=== PATIENT | female | born 1950 | race American Indian/Alaskan Native ===

== ENCOUNTER 2019-03-25 00:50 | Emergency (ER) | payer MEDICARE ==
[2019-03-25] MEDS ORDERED: ONDANSETRON 4 MG/2 ML INJ IV ONE (01:17)
[2019-03-25] MEDS ORDERED: SODIUM CHLORIDE 0.9% 1000 ML 1,000 ML IV ONE ×2 (01:17→03:21)
[2019-03-25] MEDS ORDERED: FAMOTIDINE 20 MG/2 ML INJ IV ONE (01:17)
[2019-03-25] MEDS ORDERED: MORPHINE 2 MG/1 ML INJ IV ONE (01:17)
[2019-03-25] MEDS ORDERED: DICYCLOMINE 20 MG/2 ML INJ IM ONE (01:17)
--- NOTE | 2019-03-25 02:29 | Ultrasound Report ---
ULTRASOUND ABDOMEN, LIMITED (RIGHT UPPER QUADRANT), 03/25/2019 INDICATION: Right upper quadrant pain. COMPARISON: None FINDINGS: Pancreas: Visualized portion shows no significant abnormality. Liver: The liver appears grossly normal in size and echogenicity Gallbladder: The gallbladder demonstrates no evidence of stones, sludge or abnormal wall thickening. Bile ducts: Common Bile Duct is normal in caliber measuring 5 mm. Free fluid: None. Additional Findings: None. IMPRESSION: 1. No sonographic abnormality of the right upper quadrant. Signer Name: Huong Sifuentes MD Signed: 03/25/2019 2:25 AM Workstation Name: [id number]
[2019-03-25 02:50] LABS: Hemoglobin 15.3 gm/dl (10.1-14.3); Red Blood Count 5.78 M/mm3 (3.65-5.03)
[2019-03-25 02:51] LABS: Basophils % (Auto) 0.4 % (0.0-1.8); Hematocrit 46.9 % (30.3-42.9); Lymphocytes % (Auto) 10.3 % (13.4-35.0); Mean Corpuscular HGB Conc 33 % (30-34); Mean Corpuscular Volume 81 fl (79-97); Mean Platelet Volume 11.4 fl (6-12); Monocytes # (Auto) 0.3 K/mm3 (0.0-0.8); Monocytes % (Auto) 2.7 % (0.0-7.3); Platelet Count 214 K/mm3 (140-440); Red Cell Distribution Width 14.1 % (13.2-15.2)
[2019-03-25 03:14] LABS: Alanine Aminotransferase 11 units/L (7-56); BUN/Creatinine Ratio 16; Blood Urea Nitrogen 8 mg/dL (7-17); Calcium 9.2 mg/dL (8.4-10.2)
[2019-03-25 03:15] LABS: Albumin 3.8 g/dL (3.9-5); Hemolysis Index 11
[2019-03-25 03:16] LABS: Bilirubin,Urine Negative (Negative); Color,Urine Yellow (Yellow)
[2019-03-25 03:17] LABS: Blood,Urine Small (Negative); Ictotest,Urine Negative (Negative); Urobilinogen,Urine < 2.0 mg/dL (<2.0)
[2019-03-25 03:18] LABS: Bacteria,Urine 1+ /HPF (Negative); Mucus,Urine Few /HPF
[2019-03-25] MEDS ORDERED: POTASSIUM CHLORIDE 10 MEQ 10 MEQ/100 ML BAG IV ONE (03:21)
[2019-03-25] MEDS ORDERED: POTASSIUM CHLORIDE ER 20 MEQ TAB PO ONE (03:21)
--- NOTE | 2019-03-25 04:34 | Emergency Department Report ---
ED Abdominal Pain HPI - General Chief Complaint: High BP Stated Complaint: HTN,N/V Time Seen by Provider: 03/25/19 01:05 Source: patient, EMS Mode of arrival: Ambulatory Limitations: No Limitations - History of Present Illness Initial Comments: Patient is a 68-year-old Citizen Of [place] female who is presenting with epigastric pain and nausea vomiting. Patient states that for the past 2 days she is not felt well and been nauseous however patient started vomiting tonight. Patient denies diarrhea fever cough, congestion or body aches. Patient is not sure if she ate something that may have been bad. MD Complaint: abdominal pain Location: epigastric Severity scale (0 -10): 7 Quality: cramping, aching Consistency: constant Improves With: nothing Worsens With: eating Associated Symptoms: nausea, vomiting. denies: diarrhea, fever, constipation, dysuria, hematemesis, hematochezia, melena - Related Data Previous Rx's Medication Instructions Recorded Last Taken Type Dicyclomine [Bentyl] 20 mg PO QID #10 tablet 03/25/19 Unknown Rx Famotidine [Pepcid] 40 mg PO QHS #10 tablet 03/25/19 Unknown Rx Ondansetron [Zofran Odt] 4 mg PO Q8HR #10 tab.rapdis 03/25/19 Unknown Rx Allergies Allergy/AdvReac Type Severity Reaction Status Date / Time Sulfa (Sulfonamide Allergy Angioedema Verified 03/25/19 01:04 Antibiotics) ED Review of Systems ROS: Stated complaint: HTN,N/V Other details as noted in HPI Comment: All other systems reviewed and negative ED Past Medical Hx - Past Medical History Previous Medical History?: Yes Hx Hypertension: Yes Hx Heart Attack/AMI: Yes Hx Diabetes: Yes - Surgical History Past Surgical History?: No - Social History Smoking Status: Never Smoker - Medications Home Medications: Home Medications Medication Instructions Recorded Confirmed Last Taken Type Dicyclomine [Bentyl] 20 mg PO QID #10 tablet 03/25/19 Unknown Rx Famotidine [Pepcid] 40 mg PO QHS #10 tablet 03/25/19 Unknown Rx Ondansetron [Zofran Odt] 4 mg PO Q8HR #10 tab.rapdis 03/25/19 Unknown Rx ED Physical Exam - General Limitations: No Limitations General appearance: alert, in distress (secondary to pain) - Head Head exam: Present: atraumatic, normocephalic - Eye Eye exam: Present: normal appearance, PERRL, EOMI - ENT ENT exam: Present: mucous membranes moist - Neck Neck exam: Present: normal inspection - Respiratory Respiratory exam: Present: normal lung sounds bilaterally. Absent: respiratory distress, wheezes, rales, rhonchi - Cardiovascular Cardiovascular Exam: Present: regular rate, normal rhythm, normal heart sounds. Absent: systolic murmur, diastolic murmur, rubs, gallop - GI/Abdominal GI/Abdominal exam: Present: soft, tenderness (epigastric), normal bowel sounds. Absent: distended, guarding, rebound - Extremities Exam Extremities exam: Present: normal inspection - Back Exam Back exam: Present: normal inspection - Neurological Exam Neurological exam: Present: alert, oriented X3 - Psychiatric Psychiatric exam: Present: normal affect, normal mood - Skin Skin exam: Present: warm, dry, intact, normal color. Absent: rash ED Course Vital Signs 03/25/19 03/25/19 03/25/19 01:04 01:14 01:15 Temperature 98.5 F Pulse Rate 106 H 102 H 101 H Respiratory 18 10 L 8 L Rate Blood Pressure 201/100 204/98 Blood Pressure [Left] O2 Sat by Pulse 98 97 97 Oximetry 03/25/19 03/25/19 03/25/19 01:30 01:46 02:00 Temperature Pulse Rate 98 H 96 H 101 H Respiratory 15 8 L 22 Rate Blood Pressure 204/98 203/93 203/93 Blood Pressure [Left] O2 Sat by Pulse 96 93 88 Oximetry 03/25/19 03/25/19 03/25/19 04:07 04:13 04:16 Temperature Pulse Rate 89 Respiratory 18 Rate Blood Pressure 207/136 223/111 Blood Pressure 198/98 [Left] O2 Sat by Pulse 98 Oximetry ED Medical Decision Making - Lab Data Result diagrams: 03/25/19 01:35 03/25/19 01:35 Lab Results 03/25/19 03/25/19 03/25/19 Range/Units 01:35 01:35 Unknown WBC 9.6 (4.5-11.0) K/mm3 RBC 5.78 H (3.65-5.03) M/mm3 Hgb 15.3 H (10.1-14.3) gm/dl Hct 46.9 H (30.3-42.9) % MCV 81 (79-97) fl MCH 26 L (28-32) pg MCHC 33 (30-34) % RDW 14.1 (13.2-15.2) % Plt Count 214 (140-440) K/mm3 Lymph % (Auto) 10.3 L (13.4-35.0) % Lea % (Auto) 2.7 (0.0-7.3) % Eos % (Auto) 0.0 (0.0-4.3) % Baso % (Auto) 0.4 (0.0-1.8) % Lymph # 1.0 L (1.2-5.4) K/mm3 Lea # 0.3 (0.0-0.8) K/mm3 Eos # 0.0 (0.0-0.4) K/mm3 Baso # 0.0 (0.0-0.1) K/mm3 Seg Neutrophils % 86.6 H (40.0-70.0) % Seg Neutrophils # 8.3 H (1.8-7.7) K/mm3 Sodium 138 (137-145) mmol/L Potassium 2.8 L* (3.6-5.0) mmol/L Chloride 93.2 L (98-107) mmol/L Carbon Dioxide 23 (22-30) mmol/L Anion Gap 25 mmol/L BUN 8 (7-17) mg/dL Creatinine 0.5 L (0.7-1.2) mg/dL Estimated GFR > 60 ml/min BUN/Creatinine Ratio 16 % Glucose 327 H (65-100) mg/dL Calcium 9.2 (8.4-10.2) mg/dL Total Bilirubin 0.50 (0.1-1.2) mg/dL AST 16 (5-40) units/L ALT 11 (7-56) units/L Alkaline Phosphatase 160 H (35-129) units/L Total Protein 7.6 (6.3-8.2) g/dL Albumin 3.8 L (3.9-5) g/dL Albumin/Globulin Ratio 1.0 % Lipase 7 L (13-60) units/L Urine Color Yellow (Yellow) Urine Turbidity Slightly cloudy (Clear) Urine pH 6.0 (5.0-7.0) Ur Specific Secretary 1.016 (1.003-1.030) Urine Protein 100 mg/dl (Negative) mg/dL Urine Glucose (UA) >=500 (Negative) mg/dL Urine Ketones 80 (Negative) mg/dL Urine Blood Small A (Negative) Urine Nitrite Negative (Negative) Ur Reducing Substances Negative (Negative) Urine Bilirubin Negative (Negative) Urine Ictotest Negative (Negative) Urine Urobilinogen < 2.0 (<2.0) mg/dL Ur Leukocyte Esterase Moderate (Negative) Urine WBC (Auto) 60.0 H (0.0-6.0) /HPF Urine RBC (Auto) 1.0 (0.0-6.0) /HPF U Epithel Cells (Auto) < 1.0 (0-13.0) /HPF Urine Bacteria (Auto) 1+ (Negative) /HPF Urine Mucus Few /HPF - Radiology Data Radiology results: report reviewed (sounds of the upper abdomen shows no acute process.) - Medical Decision Making She was hydrated given antiemetics and pain medicine her pain did resolve. Patient states she is feeling much improved. Ultrasounds negative for gallstones. The patient's did have a low potassium which was replaced. After the patient was feeling better blood pressure still was elevated and the patient was given a dose of labetalol patient can continue with her morning dose of blood pressure medicines when she gets home. Patient stable for discharge. Critical care attestation.: If time is entered above; I have spent that time in minutes in the direct care of this critically ill patient, excluding procedure time. ED Disposition Clinical Impression: Hypokalemia, Hypertensive urgency Acute gastritis Qualifiers: Gastritis type: unspecified gastritis Gastritis bleeding: without bleeding Qualified Code(s): K29.00 - Acute gastritis without bleeding Disposition: DC-01 TO HOME OR SELFCARE Is pt being admited?: No Does the pt Need Aspirin: No Condition: Stable Instructions: Hypertension (ED), Gastritis (ED) Referrals: VANNA ROSS MD [Primary Care Provider] - 3-5 Days Time of Disposition: 04:38
[2019-03-25 05:10] VITALS: BP 185/94
== END 2019-03-25 05:34 | disposition home or self-care (01) ==
LOC: ED 00:50
DX: E87.6 Hypokalemia (principal); I16.0 Hypertensive urgency; K29.00 Acute gastritis without bleeding; I11.0 Hypertensive heart disease with heart failure; I50.9 Heart failure, unspecified; E11.9 Type 2 diabetes mellitus without complications; Z88.2 Allergy status to sulfonamides; Z79.899 Other long term (current) drug therapy
CPT/HCPCS: 36415; 76705; 80053; 81001; 83690; 85025; 87086; 96365; 96372; 96375; 99284; J0500; J2270; J2405; J3480; J7030

== ENCOUNTER 2019-11-08 20:06 | Emergency (ER) | payer MEDICARE ==
[2019-11-08 21:46] LABS: Hematocrit 43.7 % (30.3-42.9); Hemoglobin 14.4 gm/dl (10.1-14.3); Mean Corpuscular HGB Conc 33 % (30-34); Mean Corpuscular Volume 85 fl (79-97); Red Blood Count 5.17 M/mm3 (3.65-5.03); Red Cell Distribution Width 15.7 % (13.2-15.2)
[2019-11-08 21:52] LABS: Lymphocytes # (Auto) 2.9 K/mm3 (1.2-5.4); Lymphocytes % (Auto) 43.2 % (13.4-35.0); Monocytes # (Auto) 0.9 K/mm3 (0.0-0.8); Platelet Count 192 K/mm3 (140-440)
[2019-11-08 22:01] LABS: Alanine Aminotransferase 23 units/L (7-56); Albumin 4.2 g/dL (3.9-5); Blood Urea Nitrogen 12 mg/dL (7-17); Calcium 9.2 mg/dL (8.4-10.2); Hemolysis Index 112
[2019-11-08 22:24] LABS: BUN/Creatinine Ratio 24
[2019-11-08 23:05] LABS: Bilirubin,Urine NEG (Negative); Blood,Urine MOD (Negative); Color,Urine Yellow (Yellow); Mucus,Urine FEW /HPF; Urobilinogen,Urine < 2.0 mg/dL (<2.0)
[2019-11-09] MEDS ORDERED: FAMOTIDINE 20 MG/2 ML INJ IV ONE (00:29)
[2019-11-09] MEDS ORDERED: SODIUM CHLORIDE 0.9% 1000 ML 1,000 ML IV ONE (00:29)
[2019-11-09] MEDS ORDERED: METOCLOPRAMIDE 10 MG/2 ML INJ IV ONE (00:29)
[2019-11-09] MEDS ORDERED: MORPHINE 4 MG/1 ML INJ IV ONE (00:29)
--- NOTE | 2019-11-09 00:33 | Emergency Department Report ---
<ALON MEDRANO III Jeremías - Last Filed: 11/09/19 05:57> ED Abdominal Pain HPI - General Chief Complaint: Abdominal Pain Stated Complaint: NAUSEA/VOMITING Time Seen by Provider: 11/09/19 00:27 - Related Data Previous Rx's Medication Instructions Recorded Last Taken Type Dicyclomine [Bentyl] 20 mg PO QID #10 tablet 03/25/19 Unknown Rx Famotidine [Pepcid] 40 mg PO QHS #10 tablet 03/25/19 Unknown Rx Ondansetron [Zofran Odt] 4 mg PO Q8HR #10 tab.rapdis 03/25/19 Unknown Rx Ciprofloxacin HCl [Ciprofloxacin 500 mg PO Q12HR 10 Days #20 tab 11/09/19 Unknown Rx TAB] Famotidine [Acid Controller] 20 mg PO BID 30 Days #60 tablet 11/09/19 Unknown Rx Ondansetron [Zofran Odt] 4 mg PO Q8HR PRN #10 tab.rapdis 11/09/19 Unknown Rx Allergies Allergy/AdvReac Type Severity Reaction Status Date / Time Sulfa (Sulfonamide Allergy Angioedema Verified 03/25/19 01:04 Antibiotics) ED Past Medical Hx - Medications Home Medications: Home Medications Medication Instructions Recorded Confirmed Last Taken Type Dicyclomine [Bentyl] 20 mg PO QID #10 tablet 03/25/19 Unknown Rx Famotidine [Pepcid] 40 mg PO QHS #10 tablet 03/25/19 Unknown Rx Ondansetron [Zofran Odt] 4 mg PO Q8HR #10 tab.rapdis 03/25/19 Unknown Rx Ciprofloxacin HCl [Ciprofloxacin 500 mg PO Q12HR 10 Days #20 tab 11/09/19 Unknown Rx TAB] Famotidine [Acid Controller] 20 mg PO BID 30 Days #60 tablet 11/09/19 Unknown Rx Ondansetron [Zofran Odt] 4 mg PO Q8HR PRN #10 tab.rapdis 11/09/19 Unknown Rx ED Course - Reevaluation(s) Reevaluation #1: Patient was signed out to me at 0 2 AM to follow-up on the CT scans from the previous physician. Patient CT scans were negative except for the patient had possible gallbladder thickening. The radiologist recommended an ultrasound and an ultrasound was done and it was negative for acute findings and did not demonstrate any gallbladder thickening. Patient is stable for discharge. Patient has a UTI on UA so the patient will be given antibiotics. I will initiate the previous physicians discharge instructions. 11/09/19 05:57 ED Medical Decision Making - Lab Data Result diagrams: 11/08/19 21:30 11/08/19 21:30 ED Disposition Clinical Impression: Abdominal pain Disposition: DC-01 TO HOME OR SELFCARE Condition: Stable Instructions: Abdominal Pain (ED) Prescriptions: Famotidine [Acid Controller] 20 mg PO BID 30 Days #60 tablet Ciprofloxacin HCl [Ciprofloxacin TAB] 500 mg PO Q12HR 10 Days #20 tab Ondansetron [Zofran Odt] 4 mg PO Q8HR PRN #10 tab.rapdis PRN Reason: Nausea Referrals: BRADEN JENSEN MD [Staff Physician] - 3-5 Days Time of Disposition: 05:59 <SAMIRA GOLDMAN - Last Filed: 11/10/19 21:30> ED Abdominal Pain HPI - General PUI?: No Source: patient, EMS Mode of arrival: Ambulatory Limitations: No Limitations - History of Present Illness Initial Comments: This is a 68-year-old female with history of diabetes mellitus, cardiac disease, hypertension who presents with nausea vomiting today. She has epigastric pain. She denies diarrhea or constipation. No sick contacts. She denies fever. She has "pain all over". She denies cough or shortness of breath Complaint: abdominal pain -: Gradual, This morning Location: epigastric Radiation: none Severity: moderate Quality: cramping, aching Consistency: constant Improves With: nothing Worsens With: nothing Context: other (No known sick contacts no recent antibiotics) Associated Symptoms: nausea, vomiting ED Review of Systems ROS: Stated complaint: NAUSEA/VOMITING Other details as noted in HPI Comment: All other systems reviewed and negative Constitutional: malaise. denies: chills, fever ENT: congestion (Nasal congestion). denies: throat pain Respiratory: denies: cough Cardiovascular: denies: chest pain Gastrointestinal: abdominal pain, nausea, vomiting. denies: diarrhea, constipation ED Past Medical Hx - Past Medical History Previous Medical History?: Yes Hx Hypertension: Yes Hx Heart Attack/AMI: Yes Hx Diabetes: Yes - Surgical History Past Surgical History?: No - Social History Smoking Status: Never Smoker Substance Use Type: None ED Physical Exam - General Limitations: No Limitations General appearance: alert, other (Appears uncomfortable slightly ill) - Head Head exam: Present: atraumatic, normocephalic - Eye Eye exam: Present: normal appearance - ENT ENT exam: Present: mucous membranes moist - Neck Neck exam: Present: normal inspection, full ROM - Respiratory Respiratory exam: Present: normal lung sounds bilaterally. Absent: respiratory distress, wheezes, rales, rhonchi - Cardiovascular Cardiovascular Exam: Present: regular rate, normal rhythm, normal heart sounds. Absent: systolic murmur, diastolic murmur, rubs, gallop - GI/Abdominal GI/Abdominal exam: Present: soft, normal bowel sounds. Absent: distended, tenderness, guarding, rebound - Neurological Exam Neurological exam: Present: alert, oriented X3 - Psychiatric Psychiatric exam: Present: normal affect, normal mood - Skin Skin exam: Present: warm, dry, intact, normal color. Absent: rash ED Course Vital Signs 11/08/19 11/09/19 11/09/19 21:04 00:36 00:48 Temperature 98.1 F Pulse Rate 148 H 96 H Respiratory 18 18 11 L Rate Blood Pressure 133/64 Blood Pressure [Right] O2 Sat by Pulse 96 100 Oximetry 11/09/19 11/09/19 11/09/19 00:51 01:00 01:01 Temperature Pulse Rate 96 H 96 H 96 H Respiratory 14 16 22 Rate Blood Pressure 187/82 Blood Pressure 222/99 [Right] O2 Sat by Pulse 100 94 89 Oximetry 11/09/19 11/09/19 11/09/19 01:03 01:15 01:30 Temperature Pulse Rate 98 H 98 H 98 H Respiratory 22 16 15 Rate Blood Pressure 187/82 175/86 187/82 Blood Pressure [Right] O2 Sat by Pulse 89 94 96 Oximetry 11/09/19 11/09/19 11/09/19 01:53 02:01 02:15 Temperature Pulse Rate 97 H 97 H 100 H Respiratory 14 17 13 Rate Blood Pressure 185/93 181/94 Blood Pressure [Right] O2 Sat by Pulse 99 99 97 Oximetry 11/09/19 11/09/19 11/09/19 02:30 02:37 02:45 Temperature Pulse Rate 99 H 100 H 99 H Respiratory 14 15 12 Rate Blood Pressure 181/94 174/98 Blood Pressure 181/94 [Right] O2 Sat by Pulse 97 97 97 Oximetry 11/09/19 11/09/19 11/09/19 03:00 03:16 03:31 Temperature Pulse Rate 97 H 107 H 100 H Respiratory 12 14 15 Rate Blood Pressure 171/96 174/98 174/98 Blood Pressure [Right] O2 Sat by Pulse 98 100 98 Oximetry 11/09/19 11/09/19 11/09/19 03:45 04:01 04:15 Temperature Pulse Rate 98 H 97 H 98 H Respiratory 14 13 14 Rate Blood Pressure 174/98 174/98 171/96 Blood Pressure [Right] O2 Sat by Pulse 98 98 97 Oximetry 11/09/19 11/09/19 11/09/19 04:31 04:45 05:00 Temperature Pulse Rate 98 H 98 H 97 H Respiratory 13 12 13 Rate Blood Pressure 168/90 161/88 156/92 Blood Pressure [Right] O2 Sat by Pulse 98 99 98 Oximetry 11/09/19 11/09/19 11/09/19 05:15 05:30 05:45 Temperature Pulse Rate 97 H 96 H 96 H Respiratory 12 13 13 Rate Blood Pressure 163/90 160/86 158/86 Blood Pressure [Right] O2 Sat by Pulse 98 98 99 Oximetry 11/09/19 11/09/19 06:00 06:15 Temperature Pulse Rate 96 H 96 H Respiratory 12 14 Rate Blood Pressure 156/88 162/87 Blood Pressure [Right] O2 Sat by Pulse 98 99 Oximetry ED Medical Decision Making - Lab Data Result diagrams: 11/08/19 21:30 11/08/19 21:30 - Medical Decision Making This is a 68-year-old female who presents with epigastric pain nausea vomiting generalized malaise. Differential diagnosis includes peptic ulcer disease, diabetic gastroparesis, viral syndrome My colleague will follow up CT chest abdomen and pelvis results. I anticipate discharge if work-up is unremarkable. CBC chemistry reveals volume contraction. Patient was treated with IV fluid. She has been treated with IV analgesia. Also treated with IV antiemetic. I have prescribed famotidine twice daily for 30 days. Strong suspicion for peptic ulcer disease. Patient had similar presentation in March. At that time abdominal ultrasound negative for biliary disease. Vital Signs - 24 hr 11/08/19 11/09/19 11/09/19 21:04 00:36 00:51 Temperature 98.1 F Pulse Rate 148 H 96 H Respiratory 18 18 14 Rate Blood Pressure 133/64 Blood Pressure 222/99 [Right] O2 Sat by Pulse 96 100 Oximetry 11/09/19 11/09/19 11/09/19 01:00 01:01 01:03 Temperature Pulse Rate 96 H 96 H 98 H Respiratory 16 22 22 Rate Blood Pressure 187/82 187/82 Blood Pressure [Right] O2 Sat by Pulse 94 89 89 Oximetry 11/09/19 01:15 Temperature Pulse Rate 98 H Respiratory 16 Rate Blood Pressure 175/86 Blood Pressure [Right] O2 Sat by Pulse 94 Oximetry Critical care attestation.: If time is entered above; I have spent that time in minutes in the direct care of this critically ill patient, excluding procedure time. ED Disposition Is pt being admited?: No Does the pt Need Aspirin: No
--- NOTE | 2019-11-09 02:33 | Cat Scan Report ---
CT chest w con, CT abdomen pelvis w con INDICATION / CLINICAL INFORMATION: "Generalized" malaise, body aches.. TECHNIQUE: Axial CT imaging of the chest, abdomen and pelvis was obtained IV contrast. Coronal and sagittal refo rmatted imaging obtained and reviewed. All CT scans at this location are performed using CT dose red uction for ALARA by means of automated exposure control. COMPARISON: None available. FINDINGS: CT chest with contrast does not demonstrate any mediastinal or hilar adenopathy. Thoracic aorta is un remarkable. Heart size is normal. Dense coronary artery calcification is present in the LAD. Trace pe ricardial effusion. Both lungs are clear. No evidence of parenchymal disease, mass, or pleural effusion. CT abdomen with contrast demonstrates normal appearance of the liver, spleen, pancreas, and kidneys. There is suggestion of mild gallbladder wall thickening. The gallbladder is not abnormally distended. No biliary dilatation present. CT pelvis with contrast does not demonstrate any mass, free fluid, or focal inflammatory change. A no rmal appendix is present. GI tract is unremarkable. The urinary bladder is prominently distended christopher uring over 11 cm in vertical dimension. Review of osseous structures demonstrates mild degenerative change but no acute osseous abnormality. IMPRESSION: 1. Mild gallbladder wall thickening without gallbladder distention or biliary dilatation. If there is clinical concern for gallbladder pathology, gallbladder ultrasound could be performed. 2. Heavy calcification seen in the left anterior descending coronary artery. Please correlate clinica lly. 3. Urinary bladder is markedly distended. 4. No pulmonary or pleural disease. Signer Name: Hannah Marques MD Signed: 11/09/2019 2:28 AM Workstation Name: [email or web address]
--- NOTE | 2019-11-09 05:30 | Ultrasound Report ---
ULTRASOUND ABDOMEN, LIMITED (RIGHT UPPER QUADRANT) INDICATION / CLINICAL INFORMATION: Pain. COMPARISON: CT abdomen, 07/10/2019 FINDINGS: PANCREAS: Visualized portion shows no significant abnormality. LIVER: No significant abnormality. GALLBLADDER: Gallbladder is unremarkable sonographically. No evidence of gallstones or gallbladder wa ll thickening. BILE DUCTS: No significant abnormality. Common bile duct measures 3 mm. FREE FLUID: None. ADDITIONAL FINDINGS: None. IMPRESSION: 1. No significant sonographic abnormality of the right upper quadrant. 2. No evidence of gallbladder wall thickening as suggested on recent CT abdomen. Signer Name: Hannah Marques MD Signed: 11/09/2019 5:25 AM Workstation Name: [email or web address]
[2019-11-09 06:24] VITALS: BP 162/87
== END 2019-11-09 07:10 | disposition home or self-care (01) ==
LOC: EDBD → ED 20:06
DX: R10.13 Epigastric pain (principal); I10 Essential (primary) hypertension; I25.2 Old myocardial infarction; E11.9 Type 2 diabetes mellitus without complications; Z79.899 Other long term (current) drug therapy; Z88.2 Allergy status to sulfonamides
CPT/HCPCS: 36415; 71260; 74177; 76705; 80053; 81001; 85025; 87086; 93005; 96361; 96374; 96375; 99284; J2270; J2765; J7030; Q9967

== ENCOUNTER 2019-11-12 04:07 | Inpatient (IN) | payer MEDICARE ==
[2019-11-12] MEDS ORDERED: ONDANSETRON 4 MG/2 ML INJ IV ONE (04:17)
[2019-11-12] MEDS ORDERED: MORPHINE 4 MG/1 ML INJ IV ONE ×2 (04:17→09:03)
[2019-11-12 05:10] LABS: Basophils # (Auto) 0.1 K/mm3 (0.0-0.1); Basophils % (Auto) 1.5 % (0.0-1.8); Eosinophils % (Auto) 0.1 % (0.0-4.3); Hematocrit 38.5 % (30.3-42.9); Hemoglobin 13.2 gm/dl (10.1-14.3); Lymphocytes # (Auto) 1.3 K/mm3 (1.2-5.4); Mean Corpuscular HGB Conc 34 % (30-34); Mean Corpuscular Volume 83 fl (79-97); Monocytes # (Auto) 0.2 K/mm3 (0.0-0.8); Monocytes % (Auto) 2.9 % (0.0-7.3); Red Blood Count 4.65 M/mm3 (3.65-5.03)
[2019-11-12 05:16] LABS: Platelet Count 203 K/mm3 (140-440)
[2019-11-12 05:26] LABS: Alanine Aminotransferase 19 units/L (7-56); Albumin 3.8 g/dL (3.9-5); Blood Urea Nitrogen 8 mg/dL (7-17); Calcium 8.8 mg/dL (8.4-10.2); Hemolysis Index 4
[2019-11-12 05:33] LABS: BUN/Creatinine Ratio 16
--- NOTE | 2019-11-12 05:38 | XRay Report ---
CHEST 1 VIEW, 11/12/2019 4:52 AM CLINICAL INFORMATION/INDICATION: Chest pain COMPARISON: None FINDINGS: SUPPORT DEVICES: None. HEART: The cardiac silhouette is normal in size. LUNGS/PLEURA: The lungs are clear of focal airspace disease or significant pleural effusion. ADDITIONAL FINDINGS: No additional acute findings. IMPRESSION: 1. No evidence of acute cardiopulmonary process. Signer Name: Huong Sifuentes MD Signed: 11/12/2019 5:34 AM Workstation Name: [id number]
[2019-11-12] MEDS ORDERED: MORPHINE 4 MG/1 ML INJ ONE (06:37)
[2019-11-12] MEDS ORDERED: ONDANSETRON 4 MG/2 ML INJ ONE (06:37)
--- NOTE | 2019-11-12 06:57 | Emergency Department Report ---
ED Chest Pain HPI - General Chief Complaint: Chest Pain Stated Complaint: CHEST PAIN Time Seen by Provider: 11/12/19 06:07 Source: patient, EMS Mode of arrival: Stretcher Limitations: No Limitations - History of Present Illness Initial Comments: Patient is 68 years old female with history of hypertension, diabetes and coronary artery disease. Patient presented to the ER complaining of substernal chest pain associated with nausea and vomiting. Patient stated that she is unable to keep her blood pressure medication down. Patient blood pressure is 2 20/118 in the ER. Patient is actively vomiting in the ER. Patient was seen here 2 days ago for nausea and vomiting and discharge home after patient had a negative CT abdomen and pelvis and a CT chest with IV contrast also. Patient denied any fever or chills. MD Complaint: chest pain -: Last night Onset: during rest Pain Location: substernal Pain Radiation: none Quality: heaviness - Related Data Previous Rx's Medication Instructions Recorded Last Taken Type Dicyclomine [Bentyl] 20 mg PO QID #10 tablet 03/25/19 Unknown Rx Famotidine [Pepcid] 40 mg PO QHS #10 tablet 03/25/19 Unknown Rx Ondansetron [Zofran Odt] 4 mg PO Q8HR #10 tab.rapdis 03/25/19 Unknown Rx Ciprofloxacin HCl [Ciprofloxacin 500 mg PO Q12HR 10 Days #20 tab 11/09/19 Unknown Rx TAB] Famotidine [Acid Controller] 20 mg PO BID 30 Days #60 tablet 11/09/19 Unknown Rx Ondansetron [Zofran Odt] 4 mg PO Q8HR PRN #10 tab.rapdis 11/09/19 Unknown Rx Allergies Allergy/AdvReac Type Severity Reaction Status Date / Time Sulfa (Sulfonamide Allergy Angioedema Verified 03/25/19 01:04 Antibiotics) Heart Score - HEART Score History: Moderately suspicious EKG: Non-specific Age: > 65 Risk factors: > 3 risk factors or hx of atherosclerotic disease Troponin: < normal limit HEART Score: 6 - Critical Actions Critical Actions: 4-6 pts:12-16.6% risk of adverse cardiac event. Should be admitted ED Review of Systems ROS: Stated complaint: CHEST PAIN Other details as noted in HPI Comment: All other systems reviewed and negative Constitutional: denies: chills, fever Respiratory: denies: cough, shortness of breath, SOB with exertion Cardiovascular: chest pain. denies: palpitations Gastrointestinal: nausea, vomiting. denies: abdominal pain, diarrhea, constipation, hematemesis, melena, hematochezia Musculoskeletal: denies: back pain Neurological: denies: headache, weakness ED Past Medical Hx - Past Medical History Hx Hypertension: Yes Hx Heart Attack/AMI: Yes Hx Diabetes: Yes - Social History Smoking Status: Never Smoker - Medications Home Medications: Home Medications Medication Instructions Recorded Confirmed Last Taken Type Dicyclomine [Bentyl] 20 mg PO QID #10 tablet 03/25/19 Unknown Rx Famotidine [Pepcid] 40 mg PO QHS #10 tablet 03/25/19 Unknown Rx Ondansetron [Zofran Odt] 4 mg PO Q8HR #10 tab.rapdis 03/25/19 Unknown Rx Ciprofloxacin HCl [Ciprofloxacin 500 mg PO Q12HR 10 Days #20 tab 11/09/19 Unknown Rx TAB] Famotidine [Acid Controller] 20 mg PO BID 30 Days #60 tablet 11/09/19 Unknown Rx Ondansetron [Zofran Odt] 4 mg PO Q8HR PRN #10 tab.rapdis 11/09/19 Unknown Rx ED Physical Exam - General Limitations: No Limitations General appearance: alert, in distress (Actively vomiting) - Head Head exam: Present: atraumatic, normocephalic, normal inspection - Eye Eye exam: Present: normal appearance - ENT ENT exam: Present: mucous membranes dry - Neck Neck exam: Present: normal inspection, full ROM. Absent: tenderness, meningismus - Respiratory Respiratory exam: Present: normal lung sounds bilaterally - Cardiovascular Cardiovascular Exam: Present: regular rate, normal rhythm, normal heart sounds - GI/Abdominal GI/Abdominal exam: Present: soft, normal bowel sounds. Absent: distended, tenderness, guarding, rebound, rigid, organomegaly, mass, bruit, pulsatile mass, hernia - Extremities Exam Extremities exam: Present: normal inspection, full ROM, normal capillary refill. Absent: tenderness, pedal edema, joint swelling, calf tenderness - Back Exam Back exam: Present: normal inspection, full ROM. Absent: CVA tenderness (R), CVA tenderness (L) - Neurological Exam Neurological exam: Present: alert, oriented X3, CN II-XII intact - Psychiatric Psychiatric exam: Present: normal mood - Skin Skin exam: Present: warm, dry, intact, normal color ED Course Vital Signs 11/12/19 11/12/19 11/12/19 04:44 07:14 07:54 Temperature 97.6 F Pulse Rate 84 Respiratory 20 Rate Blood Pressure 198/100 229/134 O2 Sat by Pulse 100 Oximetry 11/12/19 08:02 Temperature Pulse Rate Respiratory 20 Rate Blood Pressure O2 Sat by Pulse 98 Oximetry ED Medical Decision Making - Lab Data Result diagrams: 11/12/19 04:46 11/12/19 04:46 - EKG Data -: EKG Interpreted by Me EKG shows normal: sinus rhythm Rate: normal - EKG Data Interpretation: no acute changes - Radiology Data Radiology results: report reviewed - Medical Decision Making Patient is 68 years old female with history of hypertension, diabetes and coronary artery disease. Patient presented to the ER complaining of substernal chest pain associated with nausea and vomiting. Patient stated that she is unable to keep her blood pressure medication down. Patient blood pressure is 220/118 in the ER. Patient is actively vomiting in the ER. Patient was seen here 2 days ago for nausea and vomiting and discharge home after patient had a negative CT abdomen and pelvis and a CT chest with IV contrast also. Patient denied any fever or chills. EKG showed no ST elevation or depression. Reviewed and showed a potassium of 3, replaced with potassium chloride 20 mEq IV. Patient received Lopressor 5 mg IV for hypertensive emergency. Patient also received Zofran and Reglan for nausea and vomiting. Chest x-ray is unremarkable. Labs otherwise normal including negative troponin. I discussed the patient with Dr. Levin, he agreed to admit the patient to Dr. Griffiths. Critical Care Time: Yes Critical care time in (mins) excluding proc time.: 30 Critical care attestation.: If time is entered above; I have spent that time in minutes in the direct care of this critically ill patient, excluding procedure time. ED Disposition Clinical Impression: Chest pain, Hypertensive emergency, Intractable nausea and vomiting Disposition: OP ADMIT IP TO THIS HOSP Is pt being admited?: Yes Condition: Stable Instructions: Chest Pain (ED), Hypertension (ED) Referrals: PRIMARY CARE, [Primary Care Provider] - 3-5 Days
[2019-11-12] MEDS ORDERED: ONDANSETRON 4 MG/2 ML INJ IM ONE (07:15)
[2019-11-12] MEDS ORDERED: ASPIRIN 81 MG TAB CHEW PO ONE (07:21)
[2019-11-12] MEDS ORDERED: METOPROLOL TARTRATE 5 MG/5 ML INJ IV ONE ×3 (07:25→10:06)
[2019-11-12 07:51] LABS: INR 0.95 (0.87-1.13)
[2019-11-12 07:52] LABS: Partial Thromboplastin Time 29.7 Sec. (24.2-36.6)
[2019-11-12] MEDS ORDERED: cloNIDine 0.2 MG TAB ONE (07:52)
[2019-11-12] MEDS ORDERED: cloNIDine 0.2 MG TAB PO ONE (07:53)
[2019-11-12] MEDS ORDERED: METOCLOPRAMIDE 10 MG/2 ML INJ IV ONE (09:03)
[2019-11-12] MEDS ORDERED: hydrALAZINE 20 MG/1 ML INJ IV PRN (09:21)
--- NOTE | 2019-11-12 09:22 | History and Physical Report ---
History of Present Illness Date of examination: 11/12/19 Date of admission: 11/12/19 Chief complaint: 1. Hypertensive Emergency 2. Chest pain- 3. nausea and vomiting 4. Abdominal pain History of present illness: Patient is 68 years old female with history of hypertension, diabetes and coronary artery disease. Patient presented to the ER complaining of substernal chest pain associated with nausea and vomiting. Patient stated that she is unable to keep her blood pressure medication down. Patient blood pressure is 220/118 in the ER. Patient was actively vomiting in the ER. Patient was seen here 2 days ago for nausea and vomiting and discharge home after patient had a negative CT abdomen and pelvis and a CT chest with IV contrast also. Patient denied any fever or chills. ED work up shows WBC 8.3, hemoglobin 13.2, Sodium 136, potassium 3.0-replaced. Serum glucose 342, CR 0.5 Blood pressure 200/125-was given IV Lopressure in ED- EKG showed no ST elevation or depression. Patient also received Zofran and Reglan for nausea and vomiting. Chest x-ray -negative for acute finding Troponin negative. Patient seen at her bedside-on room air Patient reports chest pain has resolved She denies N/V abd abdominal has also resolved Blood pressure stable Past History Past Medical History: GERD, hypertension Medications and Allergies Allergies Allergy/AdvReac Type Severity Reaction Status Date / Time Sulfa (Sulfonamide Allergy Angioedema Verified 03/25/19 01:04 Antibiotics) Home Medications Medication Instructions Recorded Confirmed Last Taken Type Dicyclomine [Bentyl] 20 mg PO QID #10 tablet 03/25/19 Unknown Rx Famotidine [Pepcid] 40 mg PO QHS #10 tablet 03/25/19 Unknown Rx Ondansetron [Zofran Odt] 4 mg PO Q8HR #10 tab.rapdis 03/25/19 Unknown Rx Ciprofloxacin HCl [Ciprofloxacin 500 mg PO Q12HR 10 Days #20 tab 11/09/19 Unknown Rx TAB] Famotidine [Acid Controller] 20 mg PO BID 30 Days #60 tablet 11/09/19 Unknown Rx Ondansetron [Zofran Odt] 4 mg PO Q8HR PRN #10 tab.rapdis 11/09/19 Unknown Rx Active Meds: Active Medications Potassium Chloride (Kcl 10meq/100ml) 10 meq in 100 mls @ 100 mls/hr IV Q1H SOL Stop: 11/12/19 09:59 Review of Systems Cardiovascular: chest pain, high blood pressure Gastrointestinal: abdominal pain, nausea, vomiting Exam - Constitutional Vitals: Temp Pulse Resp BP Pulse Ox 97.6 F 103 H 20 200/125 98 11/12/19 04:44 11/12/19 09:02 11/12/19 08:02 11/12/19 09:02 11/12/19 08:02 General appearance: Present: mild distress, well-nourished - EENT Eyes: Present: PERRL ENT: hearing intact, clear oral mucosa - Neck Neck: Present: supple, normal ROM - Respiratory Respiratory effort: normal Respiratory: bilateral: CTA - Cardiovascular Heart rate: 103 Heart Sounds: Present: S1 & S2. Absent: rub, click - Extremities Extremities: pulses symmetrical, No edema Peripheral Pulses: within normal limits - Abdominal General gastrointestinal: Present: soft, non-tender, non-distended, normal bowel sounds Female genitourinary: Present: normal - Integumentary Integumentary: Present: clear, warm, dry - Musculoskeletal Musculoskeletal: gait normal, strength equal bilaterally - Psychiatric Psychiatric: appropriate mood/affect, intact judgment & insight - Neurologic Neurologic: CNII-XII intact, moves all extremities HEART Score - HEART Score History: Moderately suspicious EKG: Non-specific Age: > 65 Risk factors: > 3 risk factors or hx of atherosclerotic disease Troponin: Troponin T < 0.010 ng/mL (0.00-0.029) 11/12/19 07:26 Troponin: < normal limit HEART Score: 6 - Critical Actions Critical Actions: 4-6 pts:12-16.6% risk of adverse cardiac event. Should be admitted Results - Labs CBC & Chem 7: 11/12/19 04:46 11/12/19 04:46 Labs: Abnormal lab results 11/12/19 11/12/19 Range/Units 04:46 04:46 Seg Neutrophils % 79.5 H (40.0-70.0) % Sodium 136 L (137-145) mmol/L Potassium 3.0 L D (3.6-5.0) mmol/L Chloride 93.5 L (98-107) mmol/L Carbon Dioxide 21 L (22-30) mmol/L Creatinine 0.5 L (0.6-1.2) mg/dL Glucose 342 H (65-100) mg/dL Albumin 3.8 L (3.9-5) g/dL Lipase 11 L (13-60) units/L Assessment and Plan - Patient Problems (1) Hypokalemia Current Visit: Yes Status: Acute Plan to address problem: Replete potassium Am lab bmp and mag level (2) Chest pain Current Visit: Yes Status: Acute Plan to address problem: likely due to elevated blood pressure Patient has chest pain in ED but denies chest pain on assessment Troponin negative EKG shows no st elevation/depression Start subli nitrite (3) Hypertensive emergency Current Visit: Yes Status: Acute Plan to address problem: Hydralazine IV Prn Start amlodipine when tolerating oral intake Chest x-ray-no acute finding Will consult online marketing strategist if needed (4) Intractable nausea and vomiting Current Visit: Yes Status: Acute Plan to address problem: nausea and vomiting resolved Continue anti emetic PRN (5) Abdominal pain Current Visit: No Status: Acute Plan to address problem: Resolved (6) DVT prophylaxis Current Visit: Yes Status: Acute Plan to address problem: Lovenox
[2019-11-12] MEDS ORDERED: amLODIPine 5 MG TAB PO ONE ×2 (09:24→09:27)
[2019-11-12] MEDS ORDERED: NITROGLYCERIN 0.4 MG TAB SUBL SL PRN (10:00)
[2019-11-12] MEDS: amLODIPine 5 MG TAB PO SCH (11:49)
[2019-11-12] MEDS: POTASSIUM CHLORIDE 10 MEQ 10 MEQ/100 ML BAG IV SCH ×3 (12:58→14:15)
[2019-11-12] MEDS: INSULIN REGULAR, HUMAN 100 UNIT/ML 3ML VIAL SUB-Q SCH ×2 (17:58→21:14)
[2019-11-12] MEDS: INSULIN GLARGINE 100 UNITS/ML SUB-Q SCH (21:15)
[2019-11-13] MEDS: ONDANSETRON 4 MG/2 ML INJ IV PRN (05:55)
[2019-11-13 07:36] LABS: Calcium 8.7 mg/dL (8.4-10.2)
[2019-11-13] MEDS ORDERED: POTASSIUM CHLORIDE ER 20 MEQ TAB PO NR (07:51)
--- NOTE | 2019-11-13 08:59 | Progress Note ---
Assessment and Plan Assessment and plan: Chest pain. Obtain stress thallium this a.m. Troponin and EKG negative for acute ischemia. Cardiology consultation pending. Intractable nausea and vomiting. Unclear etiology. Patient with significant recurrent vomiting this morning. Consider GI consultation if continues. Etiology may be secondary to diabetic gastroparesis. Start Reglan. Diabetes mellitus type 2. Continue Accu-Cheks and sliding scale insulin. Accelerated hypertension. Resolved. Continue home medications Abdominal pain. Previous CT scan suggestive of gallbladder wall thickening and distention but ultrasound was negative. History Interval history: No new issues overnight. Hospitalist Physical - Constitutional Vitals: Temp Pulse Resp BP Pulse Ox 99.1 F 91 H 20 174/76 98 11/13/19 05:42 11/13/19 06:06 11/13/19 05:42 11/13/19 06:06 11/13/19 05:42 General appearance: Present: mild distress, well-nourished - EENT Eyes: Present: PERRL, EOM intact ENT: hearing intact, clear oral mucosa, dentition normal - Neck Neck: Present: supple, normal ROM - Respiratory Respiratory effort: normal Respiratory: bilateral: CTA - Cardiovascular Rhythm: regular Heart Sounds: Present: S1 & S2. Absent: gallop, rub - Extremities Extremities: no ischemia, No edema, Full ROM - Abdominal General gastrointestinal: soft, non-tender, non-distended, normal bowel sounds - Integumentary Integumentary: Present: clear, warm, dry - Neurologic Neurologic: CNII-XII intact, moves all extremities HEART Score - HEART Score EKG: Non-specific Age: > 65 Risk factors: > 3 risk factors or hx of atherosclerotic disease Troponin: Troponin T < 0.010 ng/mL (0.00-0.029) 11/12/19 14:04 Troponin: < normal limit - Critical Actions Critical Actions: 4-6 pts:12-16.6% risk of adverse cardiac event. Should be admitted Results - Labs CBC & Chem 7: 11/12/19 04:46 11/13/19 06:23 Labs: Laboratory Last Values WBC 8.3 K/mm3 (4.5-11.0) 11/12/19 04:46 RBC 4.65 M/mm3 (3.65-5.03) 11/12/19 04:46 Hgb 13.2 gm/dl (10.1-14.3) 11/12/19 04:46 Hct 38.5 % (30.3-42.9) 11/12/19 04:46 MCV 83 fl (79-97) 11/12/19 04:46 MCH 28 pg (28-32) 11/12/19 04:46 MCHC 34 % (30-34) 11/12/19 04:46 RDW 15.0 % (13.2-15.2) 11/12/19 04:46 Plt Count 203 K/mm3 (140-440) 11/12/19 04:46 Lymph % (Auto) 16.0 % (13.4-35.0) 11/12/19 04:46 Craig % (Auto) 2.9 % (0.0-7.3) 11/12/19 04:46 Eos % (Auto) 0.1 % (0.0-4.3) 11/12/19 04:46 Baso % (Auto) 1.5 % (0.0-1.8) 11/12/19 04:46 Lymph # 1.3 K/mm3 (1.2-5.4) 11/12/19 04:46 Craig # 0.2 K/mm3 (0.0-0.8) 11/12/19 04:46 Eos # 0.0 K/mm3 (0.0-0.4) 11/12/19 04:46 Baso # 0.1 K/mm3 (0.0-0.1) 11/12/19 04:46 Seg Neutrophils % 79.5 % (40.0-70.0) H 11/12/19 04:46 Seg Neutrophils # 6.6 K/mm3 (1.8-7.7) 11/12/19 04:46 PT 12.9 Sec. (12.2-14.9) 11/12/19 07:26 INR 0.95 (0.87-1.13) 11/12/19 07:26 APTT 29.7 Sec. (24.2-36.6) 11/12/19 07:26 Sodium 136 mmol/L (137-145) L 11/13/19 06:23 Potassium 4.2 mmol/L (3.6-5.0) D 11/13/19 06:23 Chloride 92.2 mmol/L (98-107) L 11/13/19 06:23 Carbon Dioxide 27 mmol/L (22-30) 11/13/19 06:23 Anion Gap 21 mmol/L 11/13/19 06:23 BUN 27 mg/dL (7-17) H 11/13/19 06:23 Creatinine 1.4 mg/dL (0.6-1.2) H D 11/13/19 06:23 Estimated GFR 45 ml/min 11/13/19 06:23 BUN/Creatinine Ratio 19 % 11/13/19 06:23 Glucose 271 mg/dL (65-100) H 11/13/19 06:23 POC Glucose 287 (70-105) H 11/12/19 20:48 Calcium 8.7 mg/dL (8.4-10.2) 11/13/19 06:23 Magnesium 1.40 mg/dL (1.7-2.3) L 11/13/19 06:23 Total Bilirubin 0.50 mg/dL (0.1-1.2) 11/12/19 04:46 AST 17 units/L (5-40) 11/12/19 04:46 ALT 19 units/L (7-56) 11/12/19 04:46 Alkaline Phosphatase 119 units/L (35-129) 11/12/19 04:46 Troponin T < 0.010 ng/mL (0.00-0.029) 11/12/19 14:04 Total Protein 7.5 g/dL (6.3-8.2) 11/12/19 04:46 Albumin 3.8 g/dL (3.9-5) L 11/12/19 04:46 Albumin/Globulin Ratio 1.0 % 11/12/19 04:46 Lipase 11 units/L (13-60) L 11/12/19 04:46 Dubose/IV: Voiding Method Incontinent IV Catheter Type [Left Upper INT / Saline Lock arm] Active Medications - Current Medications Current Medications: Generic Name Dose Route Start Last Admin Trade Name Freq PRN Reason Stop Dose Admin Amlodipine Besylate 10 mg 11/12/19 10:00 11/12/19 11:49 Amlodipine PO Not Given DAILY SOL Hydralazine HCl 5 mg 11/12/19 09:21 Apresoline IV Q4HR PRN Hypertension Insulin Glargine 10 units 11/12/19 22:00 11/12/19 21:15 Lantus SUB-Q 10 units QHS SOL Administration Insulin Human Regular 0 unit 11/12/19 16:30 11/12/19 21:14 Humulin R SUB-Q 4 unit ACHS SOL Administration Protocol Nitroglycerin 0.4 mg 11/12/19 10:00 Nitrostat SL .Q5MIN PRN Chest Pain Ondansetron HCl 4 mg 11/13/19 05:44 11/13/19 05:55 Zofran IV 4 mg Q8H PRN Administration Nausea And Vomiting
--- NOTE | 2019-11-13 09:57 | Consultation ---
History of Present Illness Consult date: 11/13/19 Requesting physician: WILLIAM CHRISTIANSON Consult reason: chest pain History of present illness: Patient is a 68 YO female with a history of hypertension, diabetes and reported AMI "many years ago" with no intervention required. She is previously unknown to our practice. She presented with c/o nausea and vomiting. Cardiology has been consulted for chest pain, although pt denies any occurrence of chest pain. Pt denies any SOB, palpitations, diaphoresis, dizziness or syncope. Pt presented to [facility] ED 2 days ago for n/v and was discharged home after patient had a negative CT abdomen/pelvis. Pt reports that she has been unable to take her anti- hypertensive medications due to persistent n/v. BP in ED 229/134. She has been scheduled for stress test this morning per primary team. She is evaluated in stress lab. Past History Past Medical History: diabetes, hypertension, other (as per HPI) Medications and Allergies Allergies Allergy/AdvReac Type Severity Reaction Status Date / Time Sulfa (Sulfonamide Allergy Angioedema Verified 03/25/19 01:04 Antibiotics) Home Medications Medication Instructions Recorded Confirmed Last Taken Type Aspirin [Adult Aspirin] 81 mg PO DAILY 11/12/19 11/12/19 11/10/19 History AtorvaSTATin [Lipitor] 40 mg PO QHS 11/12/19 11/12/19 11/10/19 History Ergocalciferol (Vitamin D2) 50,000 unit PO QWEEK 11/12/19 11/12/19 Unknown History [Vitamin D2] Lacosamide [Vimpat] 200 mg PO BID 11/12/19 11/12/19 11/10/19 History Metformin HCl [metFORMIN] 1,000 mg PO BID 11/12/19 11/12/19 11/10/19 History Potassium Chloride [K-Dur] 20 meq PO QDAY 11/12/19 11/12/19 11/10/19 History Sertraline [Zoloft] 150 mg PO QDAY 11/12/19 11/12/19 11/10/19 History carvediloL [Coreg] 25 mg PO BID 11/12/19 11/12/19 11/10/19 History levETIRAcetam [Keppra TAB] 750 mg PO BID 11/12/19 11/12/19 11/10/19 History lisinopriL [Zestril] 20 mg PO QDAY 11/12/19 11/12/19 11/10/19 History Active Meds: Active Medications Amlodipine Besylate (Amlodipine) 10 mg PO DAILY [facility] Last Admin: 11/12/19 11:49 Dose: Not Given Documented by: Aspirin (Halfprin Ec) 81 mg PO DAILY [facility] Atorvastatin Calcium (Lipitor) 40 mg PO QHS [facility] Carvedilol (Coreg) 25 mg PO BID [facility] Ergocalciferol (Vitamin D2) 50,000 unit PO QWEEK [facility] Hydralazine HCl (Apresoline) 5 mg IV Q4HR PRN PRN Reason: Hypertension Insulin Glargine (Lantus) 10 units SUB-Q QHS [facility] Last Admin: 11/12/19 21:15 Dose: 10 units Documented by: Insulin Human Regular (Humulin R) 0 unit SUB-Q [facility]; Protocol Last Admin: 11/12/19 21:14 Dose: 4 unit Documented by: Lisinopril (Zestril) 20 mg PO QDAY [facility] Metformin HCl (Glucophage) 1,000 mg PO BIDDIAB [facility] Miscellaneous Medication (Lacosamide [Vimpat]) 200 mg PO BID [facility] Miscellaneous Medication (Levetiracetam [Keppra Tab]) 750 mg PO BID [facility] Nitroglycerin (Nitrostat) 0.4 mg SL .Q5MIN PRN PRN Reason: Chest Pain Ondansetron HCl (Zofran) 4 mg IV Q8H PRN PRN Reason: Nausea And Vomiting Last Admin: 11/13/19 05:55 Dose: 4 mg Documented by: Potassium Chloride (K-Dur) 20 meq PO QDAY [facility] Sertraline HCl (Zoloft) 150 mg PO QDAY [facility] Review of Systems Constitutional: no fever, no chills, no sweats Ears, nose, mouth and throat: no ear pain, no nose pain, no sinus pressure, no sinus pain Cardiovascular: high blood pressure, no chest pain, no orthopnea, no palpitations, no rapid/irregular heart beat, no edema, no syncope, no lightheadedness, no shortness of breath, no dyspnea on exertion Respiratory: no cough, no shortness of breath, no dyspnea on exertion, no congestion, no wheezing, no pain Gastrointestinal: nausea, vomiting, no abdominal pain, no diarrhea, no const ipation, no change in bowel habits, no hematemesis, no coffee ground emesis Genitourinary Female: no pelvic pain, no flank pain, no dysuria, no urinary frequency, no urgency Musculoskeletal: no neck stiffness, no neck pain, no shooting arm pain, no arm numbness/tingling, no low back pain, no shooting leg pain Integumentary: no rash, no pruritis, no redness, no sores, no wounds Neurological: no head injury, no paralysis, no weakness, no parathesias, no numbness, no tingling, no seizures, no syncope Psychiatric: no anxiety Endocrine: no cold intolerance, no heat intolerance Hematologic/Lymphatic: no easy bruising Allergic/Immunologic: no urticaria Physical Examination Vital Signs Temp Pulse BP Pulse Ox 97.6 F 84 198/100 100 11/12/19 04:44 11/12/19 04:44 11/12/19 04:44 11/12/19 04:44 General appearance: other (n/v) HEENT: Positive: PERRL Neck: Positive: neck supple, trachea midline Cardiac: Positive: Reg Rate and Rhythm, S1/S2 Lungs: Positive: Decreased Breath Sounds Neuro: Positive: Grossly Intact Abdomen: Negative: Tender Skin: Negative: Rash Musculoskeletal: No Pain Extremities: Absent: edema Results 11/12/19 04:46 11/13/19 06:23 Comprehensive Metabolic Panel 11/13/19 Range/Units 06:23 Sodium 136 L (137-145) mmol/L Potassium 4.2 D (3.6-5.0) mmol/L Chloride 92.2 L (98-107) mmol/L Carbon Dioxide 27 (22-30) mmol/L BUN 27 H (7-17) mg/dL Creatinine 1.4 H D (0.6-1.2) mg/dL Glucose 271 H (65-100) mg/dL Calcium 8.7 (8.4-10.2) mg/dL - Imaging and Cardiology Echo: pending EKG: report reviewed, image reviewed EKG interpretations - Telemetry EKG Rhythm: Sinus Rhythm - EKG Sinus rhythms and dysrhythmias: sinus rhythm Myocardial infarction: inferior OH (old age inde Assessment and Plan Pt presented with intractable n/v and hypertensive emergency. She denies any occurrence of chest pain. AMI r/o. S/p lexiscan MPI stress test today which was negative. Replete Mg. F/u BMP and Mg in AM. Further eval/management of n/v per primary team. Currently stable cardiac status. Nothing further to add from cardiac perspective at this time. Will sign off. Recommend pt follow up in our office with Dr. Pillai within 2 weeks of discharge ([phone]). The patient has been seen in conjunction with Dr. Pillai who agrees with the assessment and plan of care. - Patient Problems (1) Intractable nausea and vomiting Current Visit: Yes Status: Acute (2) Hypertensive emergency Current Visit: Yes Status: Acute (3) Diabetes Current Visit: Yes Status: Chronic (4) History of OH (myocardial infarction) Current Visit: Yes Status: Chronic Plan to address problem: per pt report (5) Hypomagnesemia Current Visit: Yes Status: Resolved
[2019-11-13] MEDS ORDERED: NON-FORMULARY EACH (Metformin Hcl [Metformin] 1,000 MG) PO SCH (10:00)
[2019-11-13] MEDS ORDERED: NON-FORMULARY EACH (Lacosamide [Vimpat] 200 MG) PO SCH (10:00)
[2019-11-13] MEDS ORDERED: NON-FORMULARY EACH (Levetiracetam [Keppra Tab] 750 MG) PO SCH (10:00)
[2019-11-13] MEDS ORDERED: REGADENOSON 0.4 MG/5 ML INJ IV ONE ×2 (10:40→10:41)
[2019-11-13] MEDS ORDERED: MAGNESIUM SULFATE 2 GM/50 ML BAG IV ONE (11:00)
[2019-11-13] MEDS ORDERED: POTASSIUM CHLORIDE ER 20 MEQ TAB PO ONE (12:00)
[2019-11-13] MEDS: METOCLOPRAMIDE 10 MG/2 ML INJ IV PRN ×2 (12:28→20:25)
[2019-11-13] MEDS: INSULIN REGULAR, HUMAN 100 UNIT/ML 3ML VIAL SUB-Q SCH ×4 (13:03→22:54)
[2019-11-13] MEDS: ASPIRIN EC 81 MG TAB PO SCH (17:21)
[2019-11-13] MEDS: levETIRAcetam 500 MG/5 ML ORAL LIQD PO SCH (17:22)
[2019-11-13] MEDS: metFORMIN 500 MG TAB PO SCH (17:24)
[2019-11-13] MEDS: SERTRALINE 50 MG TAB PO SCH (17:24)
[2019-11-13] MEDS: LISINOPRIL 20 MG TAB PO SCH (17:25)
[2019-11-13] MEDS: amLODIPine 5 MG TAB PO SCH (17:26)
[2019-11-13] MEDS: carvediloL 25 MG TAB PO SCH ×2 (17:27→22:40)
[2019-11-13] MEDS: LACOSAMIDE 100 MG TAB PO SCH (22:36)
[2019-11-13] MEDS: INSULIN GLARGINE 100 UNITS/ML SUB-Q SCH (22:55)
[2019-11-14] MEDS: levETIRAcetam 500 MG/5 ML ORAL LIQD PO SCH ×3 (00:57→22:15)
[2019-11-14] MEDS: ONDANSETRON 4 MG/2 ML INJ IV PRN ×2 (01:02→21:18)
[2019-11-14] MEDS: METOCLOPRAMIDE 10 MG/2 ML INJ IV PRN (05:40)
[2019-11-14] MEDS: metFORMIN 500 MG TAB PO SCH ×3 (05:48→17:04)
[2019-11-14] MEDS: LACOSAMIDE 100 MG TAB PO SCH ×3 (05:49→22:14)
[2019-11-14] MEDS: ERGOCALCIFEROL (VIT D2) 50,000 UNIT CAP PO SCH (05:53)
[2019-11-14] MEDS: POTASSIUM CHLORIDE ER 20 MEQ TAB PO SCH ×2 (05:53→11:07)
[2019-11-14 08:00] LABS: Basophils # (Auto) 0.1 K/mm3 (0.0-0.1); Basophils % (Auto) 0.7 % (0.0-1.8); Hematocrit 39.1 % (30.3-42.9); Hemoglobin 13.2 gm/dl (10.1-14.3); Lymphocytes # (Auto) 1.2 K/mm3 (1.2-5.4); Lymphocytes % (Auto) 10.7 % (13.4-35.0); Mean Corpuscular HGB Conc 34 % (30-34); Mean Corpuscular Volume 84 fl (79-97); Monocytes # (Auto) 0.5 K/mm3 (0.0-0.8); Monocytes % (Auto) 4.4 % (0.0-7.3); Platelet Count 200 K/mm3 (140-440); Red Blood Count 4.64 M/mm3 (3.65-5.03); Red Cell Distribution Width 15.7 % (13.2-15.2)
[2019-11-14 08:11] LABS: Calcium 8.5 mg/dL (8.4-10.2)
[2019-11-14] MEDS: SERTRALINE 50 MG TAB PO SCH (09:11)
[2019-11-14] MEDS: carvediloL 25 MG TAB PO SCH ×2 (09:11→22:15)
[2019-11-14] MEDS: amLODIPine 5 MG TAB PO SCH (09:12)
[2019-11-14] MEDS: ASPIRIN EC 81 MG TAB PO SCH (09:12)
[2019-11-14] MEDS: LISINOPRIL 20 MG TAB PO SCH (09:17)
[2019-11-14] MEDS: INSULIN REGULAR, HUMAN 100 UNIT/ML 3ML VIAL SUB-Q SCH ×4 (09:54→22:25)
[2019-11-14] MEDS ORDERED: cloNIDine TTS 0.3 MG/24 HR PATCH TD SCH (10:00)
[2019-11-14] MEDS ORDERED: PANTOPRAZOLE 40 MG INJ IV SCH (10:00)
--- NOTE | 2019-11-14 11:07 | Gastroenterology Consultation ---
History of Present Illness - Reason for Consult Consult date: 11/14/19 nausea/vomiting Requesting physician: WILLIAM CHRISTIANSON - History of Present Illness This is a 68 yo female with pmh of HTN, DM (poorly controlled), CAD, and HLD admitted on 11/12/2019 for hypertensive urgency, chest pain after presenting with nausea/vomiting, could not keep her BP medications down. Patient reports having nausea/vomiting and abdominal pain for the past 2 weeks. Could not keep m uch of her foods down. She is a poor historian and could not give history of prior work up. Patient reports being constipated. No blood in the stools or melena. She was seen in the ED here 2 days prior to admission for nausea/vomiting. ED work up with CT a/p and RUQ US were unremarkable. Since admission, cardiology was consulted for chest pain work up. Stress test was negative. Per chart review, patient was admitted in 03/2019 at [facility] and underwent work up for nausea/vomiting. EGD in 03/2019 showed gastritis. Path showed H pylori. Unclear if patient was treated with antibiotics. Medication list reviewed. Past History Past Medical History: diabetes, hypertension, other (as per HPI) Medications and Allergies Allergies Allergy/AdvReac Type Severity Reaction Status Date / Time Sulfa (Sulfonamide Allergy Angioedema Verified 03/25/19 01:04 Antibiotics) Home Medications Medication Instructions Recorded Confirmed Last Taken Type Aspirin [Adult Aspirin] 81 mg PO DAILY 11/12/19 11/12/19 11/10/19 History AtorvaSTATin [Lipitor] 40 mg PO QHS 11/12/19 11/12/19 11/10/19 History Ergocalciferol (Vitamin D2) 50,000 unit PO QWEEK 11/12/19 11/12/19 Unknown History [Vitamin D2] Lacosamide [Vimpat] 200 mg PO BID 11/12/19 11/12/19 11/10/19 History Metformin HCl [metFORMIN] 1,000 mg PO BID 11/12/19 11/12/19 11/10/19 History Potassium Chloride [K-Dur] 20 meq PO QDAY 11/12/19 11/12/19 11/10/19 History Sertraline [Zoloft] 150 mg PO QDAY 11/12/19 11/12/19 11/10/19 History carvediloL [Coreg] 25 mg PO BID 11/12/19 11/12/19 11/10/19 History levETIRAcetam [Keppra TAB] 750 mg PO BID 11/12/19 11/12/19 11/10/19 History lisinopriL [Zestril] 20 mg PO QDAY 11/12/19 11/12/19 11/10/19 History Active Meds: Active Medications Amlodipine Besylate (Amlodipine) 10 mg PO DAILY [facility] Last Admin: 11/14/19 09:12 Dose: 10 mg Documented by: Aspirin (Halfprin Ec) 81 mg PO DAILY [facility] Last Admin: 11/14/19 09:12 Dose: 81 mg Documented by: Atorvastatin Calcium (Lipitor) 40 mg PO QHS [facility] Last Admin: 11/13/19 22:37 Dose: 40 mg Documented by: Carvedilol (Coreg) 25 mg PO BID [facility] Last Admin: 11/14/19 09:11 Dose: 25 mg Documented by: Clonidine HCl (Catapres-Tts Patch) 0.3 mg TD Tu [facility] Last Admin: 11/14/19 10:47 Dose: 0.3 mg Documented by: Ergocalciferol (Vitamin D2) 50,000 unit PO Mo@1000 [facility] Last Admin: 11/14/19 05:53 Dose: Not Given Documented by: Hydralazine HCl (Apresoline) 5 mg IV Q4HR PRN PRN Reason: Hypertension Insulin Glargine (Lantus) 10 units SUB-Q QSSM [facility] Last Admin: 11/13/19 22:55 Dose: 10 units Documented by: Insulin Human Regular (Humulin R) 0 unit SUB-Q [facility]; Protocol Last Admin: 11/14/19 09:54 Dose: Not Given Documented by: Labetalol HCl (Labetalol) 10 mg IV Q4HR PRN PRN Reason: Blood Pressure Last Admin: 11/14/19 05:39 Dose: 10 mg Documented by: Lacosamide (Vimpat) 200 mg PO Q12HR [facility] Last Admin: 11/14/19 09:11 Dose: 200 mg Documented by: Levetiracetam (Keppra) 750 mg PO BID [facility] Last Admin: 11/14/19 10:41 Dose: 750 mg Documented by: Lisinopril (Zestril) 20 mg PO QDAY [facility] Last Admin: 11/14/19 09:17 Dose: 20 mg Documented by: Metformin HCl (Glucophage) 1,000 mg PO BIDDIAB [facility] Last Admin: 11/14/19 09:10 Dose: 1,000 mg Documented by: Metoclopramide HCl (Reglan) 10 mg IV Q6H PRN PRN Reason: Nausea And Vomiting Last Admin: 11/14/19 05:40 Dose: 10 mg Documented by: Nitroglycerin (Nitrostat) 0.4 mg SL .Q5MIN PRN PRN Reason: Chest Pain Ondansetron HCl (Zofran) 4 mg IV Q8H PRN PRN Reason: Nausea And Vomiting Last Admin: 11/14/19 01:02 Dose: 4 mg Documented by: Pantoprazole Sodium (Protonix) 40 mg IV BID [facility] Last Admin: 11/14/19 09:13 Dose: 40 mg Documented by: Potassium Chloride (K-Dur) 20 meq PO QDAY [facility] Last Admin: 11/14/19 05:53 Dose: Not Given Documented by: Sertraline HCl (Zoloft) 150 mg PO QDAY [facility] Last Admin: 11/14/19 09:11 Dose: 150 mg Documented by: Review of Systems - Review of Systems Constitutional: no weight loss, no weight gain Cardiovascular: chest pain Gastrointestinal: abdominal pain, nausea, vomiting, constipation, no melena, no hematochezia Integumentary: no rash Neurological: weakness Psychiatric: no anxiety Endocrine: no cold intolerance Hematologic/Lymphatic: no easy bruising Exam - Constitutional Vital Signs: Temp Pulse Resp BP Pulse Ox 98.6 F 89 18 171/85 97 11/14/19 07:30 11/14/19 11:03 11/14/19 07:30 11/14/19 11:03 11/14/19 07:30 General appearance: no acute distress - EENT Eyes: EOM intact ENT: hearing intact - Neck Neck: supple - Respiratory Respiratory effort: normal - Cardiovascular Rhythm: regular Heart Sounds: Present: S1 & S2 - Gastrointestinal General gastrointestinal: Present: soft, tender, non-distended, normal bowel sounds - Neurologic Neurological: alert and oriented x3 - Psychiatric Psychiatric: appropriate mood/affect - Labs CBC & Chem 7: 11/14/19 07:03 11/14/19 07:03 Lab Results: Laboratory Results - last 24 hr 11/13/19 11/13/19 11/13/19 13:51 16:45 23:05 WBC RBC Hgb Hct MCV MCH MCHC RDW Plt Count Lymph % (Auto) [place] % (Auto) Eos % (Auto) Baso % (Auto) Lymph # [place] # Eos # Baso # Seg Neutrophils % Seg Neutrophils # Sodium Potassium Chloride Carbon Dioxide Anion Gap BUN Creatinine Estimated GFR BUN/Creatinine Ratio Glucose POC Glucose 288 H 337 H 236 H Calcium Magnesium 11/14/19 11/14/19 11/14/19 07:03 07:03 07:47 WBC 11.1 H RBC 4.64 Hgb 13.2 Hct 39.1 MCV 84 MCH 29 MCHC 34 RDW 15.7 H Plt Count 200 Lymph % (Auto) 10.7 L [place] % (Auto) 4.4 Eos % (Auto) 0.0 Baso % (Auto) 0.7 Lymph # 1.2 [place] # 0.5 Eos # 0.0 Baso # 0.1 Seg Neutrophils % 84.2 H Seg Neutrophils # 9.4 H Sodium 137 Potassium 3.4 L Chloride 93.2 L Carbon Dioxide 27 Anion Gap 20 BUN 37 H Creatinine 1.3 H Estimated GFR 49 BUN/Creatinine Ratio 28 Glucose 344 H POC Glucose 219 H Calcium 8.5 Magnesium 1.90 - Imaging CT Scan: report reviewed Ultrasound: report reviewed Assessment and Plan This is a 68 yo female with pmh of HTN, DM (poorly controlled), CAD, and HLD admitted on 11/12/2019 for hypertensive urgency, chest pain after presenting with nausea/vomiting, could not keep her BP medications down. - Patient Problems (1) Intractable nausea and vomiting Current Visit: Yes Status: Acute Plan to address problem: # Nausea/vomiting: worsening of chronic symptoms. - per daughter and records, patient was admitted at [facility] and had EGD for nausea/vomiting in 03/2019. Path showed gastritis and H pylori. Unclear if patient was treated with antibiotics. - etiology likely multifactorial including H pylori, gastritis, elevated BP, possible DM gastroparesis (unclear if officially diagnosed. no gastric emptying study). - CT a/p with contrast and RUQ US were unremarkable from recent ED visit here. Rec - clear liquids. - no plans for EGD at this time. Last EGD in 03/2019 at [facility]. - recommend antibiotics for H pylori. - antiemetics prn. - PPI PO. - blood glucose control. - will follow. - updated daughter on the phone.
--- NOTE | 2019-11-14 11:19 | Treadmill Report ---
IV LEXISCAN EKG REPORT FINDINGS: Baseline EKG showed sinus rhythm within normal limits. The patient tolerated the IV Lexiscan well without any significant side effects. The patient did not have any chest pain. No EKG changes noted from baseline post-vasodilation. Nuclear images pending. JOB# [id number] TRICIA/NTS
--- NOTE | 2019-11-14 11:26 | Progress Note ---
Subjective Date of service: 11/14/19 Interval history: Patient is a 68 YO female with a history of hypertension, diabetes and reported AMI "many years ago" with no intervention required. She is previously unknown to our practice. She presented with c/o nausea and vomiting. Cardiology has been consulted for chest pain, although pt denies any occurrence of chest pain. Pt denies any SOB, palpitations, diaphoresis, dizziness or syncope. Pt presented to [facility] ED 2 days ago for n/v and was discharged home after patient had a negative CT abdomen/pelvis. Pt reports that she has been unable to take her anti- hypertensive medications due to persistent n/v. BP in ED 229/134. She has been scheduled for stress test this morning per primary team. She is evaluated in stress lab. 11/13 Patient is resting in the bed awake and alert not in any distress complains of constipation, denies any nausea or vomiting, states abdominal pain is minimal, denies fever chills or dysuria, denies chest pain or shortness of breath GI note reviewed Discussed with Dr. Tipton Started on H. pylori therapy Hypertensive urgency: add clonidine transdermal patch Continue amlodipine and carvedilol IV hydralazine Pressure is trending down Nausea/vomiting: GI consulted GI fluid positive for occult blood H&H stable Discussed with GI Dr. Tipton Patient apparently had EGD in March of this year at [facility] Was positive for H. pylori but currently never treated Started on anti-H. pylori treatment today by GI Constipation Patient states that she has not had a BM in 4 days Started on daily MiraLAX Hypokalemia: mild Secondary to nausea and vomiting We will supplement Type 2 Diabetes-poorly controlled Continue insulin sliding scale coverage Accu-Cheks reviewed We will increase basal insulin to 15 units daily MAC Mild Continue IV fluids Avoid nephrotoxins Objective - Constitutional Vitals: Vital Signs - 12hr 11/14/19 11/14/19 11/14/19 01:00 04:25 05:39 Temperature 98 F Pulse Rate 80 84 83 Respiratory 18 Rate Blood Pressure 183/87 Blood Pressure 153/78 162/83 [Right] O2 Sat by Pulse 99 Oximetry 11/14/19 11/14/19 11/14/19 07:30 09:11 09:12 Temperature 98.6 F Pulse Rate 88 88 88 Respiratory 18 Rate Blood Pressure 194/94 194/94 194/94 Blood Pressure [Right] O2 Sat by Pulse 97 Oximetry 11/14/19 11/14/19 11/14/19 09:17 10:47 11:03 Temperature Pulse Rate 88 89 89 Respiratory Rate Blood Pressure 194/94 171/85 Blood Pressure 171/85 [Right] O2 Sat by Pulse Oximetry General appearance: Present: no acute distress, well-nourished - EENT Eyes: PERRL, EOM intact ENT: hearing intact, clear oral mucosa - Neck Neck: supple, normal ROM, no masses or JVD - Respiratory Respiratory effort: normal Respiratory: bilateral: CTA - Breasts Breasts: deferred - Cardiovascular Rhythm: regular Heart Sounds: Present: S1 & S2 Extremities: No edema - Gastrointestinal General gastrointestinal: Present: soft, non-tender. Absent: hepatomegaly, splenomegaly Rectal Exam: deferred - Genitourinary Female genitourinary: deferred - Integumentary Integumentary: clear, warm - Musculoskeletal Musculoskeletal: strength equal bilaterally - Neurologic Neurologic: no focal deficits - Psychiatric Psychiatric: appropriate mood/affect - Labs CBC & Chem 7: 11/14/19 07:03 11/14/19 07:03 Labs: Abnormal lab results 11/13/19 11/13/19 11/13/19 Range/Units 13:51 16:45 23:05 WBC (4.5-11.0) K/mm3 RDW (13.2-15.2) % Lymph % (Auto) (13.4-35.0) % Seg Neutrophils % (40.0-70.0) % Seg Neutrophils # (1.8-7.7) K/mm3 Potassium (3.6-5.0) mmol/L Chloride (98-107) mmol/L BUN (7-17) mg/dL Creatinine (0.6-1.2) mg/dL Glucose (65-100) mg/dL POC Glucose 288 H 337 H 236 H (70-105) 11/14/19 11/14/19 11/14/19 Range/Units 07:03 07:03 07:47 WBC 11.1 H (4.5-11.0) K/mm3 RDW 15.7 H (13.2-15.2) % Lymph % (Auto) 10.7 L (13.4-35.0) % Seg Neutrophils % 84.2 H (40.0-70.0) % Seg Neutrophils # 9.4 H (1.8-7.7) K/mm3 Potassium 3.4 L (3.6-5.0) mmol/L Chloride 93.2 L (98-107) mmol/L BUN 37 H (7-17) mg/dL Creatinine 1.3 H (0.6-1.2) mg/dL Glucose 344 H (65-100) mg/dL POC Glucose 219 H (70-105) 11/14/19 Range/Units 11:24 WBC (4.5-11.0) K/mm3 RDW (13.2-15.2) % Lymph % (Auto) (13.4-35.0) % Seg Neutrophils % (40.0-70.0) % Seg Neutrophils # (1.8-7.7) K/mm3 Potassium (3.6-5.0) mmol/L Chloride (98-107) mmol/L BUN (7-17) mg/dL Creatinine (0.6-1.2) mg/dL Glucose (65-100) mg/dL POC Glucose 254 H (70-105) HEART Score - HEART Score EKG: Non-specific Age: > 65 Risk factors: > 3 risk factors or hx of atherosclerotic disease Troponin: Troponin T < 0.010 ng/mL (0.00-0.029) 11/12/19 14:04 Troponin: < normal limit - Critical Actions Critical Actions: 4-6 pts:12-16.6% risk of adverse cardiac event. Should be admitted
--- NOTE | 2019-11-14 11:34 | Treadmill Report ---
MYOCARDIAL PERFUSION IMAGING REPORT The patient underwent IV Lexiscan pharmacological stress testing. The patient was injected with Myoview during rest and perfusion images were obtained followed by post-vasodilation. Myoview was injected and both perfusion images and gated images were obtained. Following findings were noted. Perfusion images showed no significant defects at rest or during post-stress. Normal perfusion noted. TID was noted to be 0.97. Normal size left ventricle with normal contractility noted. Normal wall motion noted. Calculated ejection fraction of 65% noted. FINAL IMPRESSION: 1. Myocardial perfusion imaging using Myoview showed no significant perfusion defects to suggest ischemia. 2. Normal left ventricular function and wall motion noted with calculated ejection fraction of 65%. JOB# [id number] TRICIA/MARIA C
[2019-11-14] MEDS: POLYETHYLENE GLYCOL 3350 17 GM POWDER PO SCH (13:00)
[2019-11-14] MEDS ORDERED: amLODIPine 5 MG TAB PO SCH (13:30)
[2019-11-14] MEDS: PANTOPRAZOLE 40 MG TAB PO SCH (22:14)
[2019-11-14] MEDS: CLARITHROMYCIN 500 MG TAB PO SCH (22:14)
[2019-11-14] MEDS: AMOXICILLIN 500 MG CAP PO SCH (22:15)
[2019-11-14] MEDS: INSULIN GLARGINE 100 UNITS/ML SUB-Q SCH ×2 (22:17→22:28)
[2019-11-15] MEDS: METOCLOPRAMIDE 10 MG/2 ML INJ IV PRN (04:43)
[2019-11-15] MEDS: POLYETHYLENE GLYCOL 3350 17 GM POWDER PO SCH (09:27)
[2019-11-15] MEDS: LISINOPRIL 20 MG TAB PO SCH (09:27)
[2019-11-15] MEDS: ASPIRIN EC 81 MG TAB PO SCH (09:27)
[2019-11-15] MEDS: SERTRALINE 50 MG TAB PO SCH (09:28)
[2019-11-15] MEDS: LACOSAMIDE 100 MG TAB PO SCH ×2 (09:28→22:15)
[2019-11-15] MEDS: amLODIPine 5 MG TAB PO SCH (09:28)
[2019-11-15] MEDS: PANTOPRAZOLE 40 MG TAB PO SCH ×2 (09:28→22:16)
[2019-11-15] MEDS: levETIRAcetam 500 MG/5 ML ORAL LIQD PO SCH ×2 (09:28→22:17)
[2019-11-15] MEDS: carvediloL 25 MG TAB PO SCH ×2 (09:29→22:18)
[2019-11-15] MEDS: metFORMIN 500 MG TAB PO SCH ×2 (09:29→17:41)
[2019-11-15] MEDS: CLARITHROMYCIN 500 MG TAB PO SCH ×2 (09:29→22:16)
[2019-11-15] MEDS: AMOXICILLIN 500 MG CAP PO SCH ×2 (09:29→22:15)
[2019-11-15] MEDS: INSULIN REGULAR, HUMAN 100 UNIT/ML 3ML VIAL SUB-Q SCH ×4 (09:30→22:49)
[2019-11-15] MEDS: POTASSIUM CHLORIDE ER 20 MEQ TAB PO SCH (09:31)
[2019-11-15] MEDS: ONDANSETRON 4 MG/2 ML INJ IV PRN (12:48)
--- NOTE | 2019-11-15 13:43 | Gastroenterology Progress Note ---
Assessment and Plan This is a 68 yo female with pmh of HTN, DM (poorly controlled), CAD, and HLD admitted on 11/12/2019 for hypertensive urgency, chest pain after presenting with nausea/vomiting, could not keep her BP medications down. - Patient Problems (1) Intractable nausea and vomiting Current Visit: Yes Status: Acute Plan to address problem: # Nausea/vomiting: worsening of chronic symptoms. - per daughter and records, patient was admitted at [facility] and had EGD for nausea/vomiting in 03/2019. Path showed gastritis and H pylori. Unclear if patient was treated with antibiotics. - etiology likely multifactorial including H pylori, gastritis, elevated BP, possible DM gastroparesis (unclear if officially diagnosed. no gastric emptying study). - CT a/p with contrast and RUQ US were unremarkable from recent ED visit here. Rec - clear liquids. advance as tolerated. - no plans for EGD at this time. Last EGD in 03/2019 at [facility]. - started on antibiotics for H pylori (start date 11/14/2019) - antiemetics prn. - PPI PO. - blood glucose control. - miralax daily for bowel regimen/constipation. - will follow. Subjective Date of service: 11/15/19 Interval history: Patient reports mild nausea but no vomiting. No BM. Objective - Constitutional Vitals: Temp Pulse Resp BP Pulse Ox 97.5 F L 80 18 152/71 96 11/15/19 08:00 11/15/19 11:00 11/15/19 11:00 11/15/19 11:00 11/15/19 11:00 General appearance: no acute distress - EENT Eyes: EOM intact ENT: hearing intact - Respiratory Respiratory effort: normal - Cardiovascular Rhythm: regular Heart Sounds: Present: S1 & S2 - Gastrointestinal General gastrointestinal: Present: soft, non-tender, non-distended - Integumentary Integumentary: Present: clear, warm - Labs CBC & Chem 7: 11/14/19 07:03 11/14/19 07:03 Labs: Laboratory Results - last 24 hr 11/14/19 11/14/19 11/15/19 17:05 22:28 07:40 POC Glucose 263 H 225 H 266 H 11/15/19 11:51 POC Glucose 384 H
--- NOTE | 2019-11-15 14:03 | Progress Note ---
Subjective Date of service: 11/15/19 Interval history: Patient is a 68 YO female with a history of hypertension, diabetes and reported AMI "many years ago" with no intervention required. She is previously unknown to our practice. She presented with c/o nausea and vomiting. Cardiology has been consulted for chest pain, although pt denies any occurrence of chest pain. Pt denies any SOB, palpitations, diaphoresis, dizziness or syncope. Pt presented to [facility] ED 2 days ago for n/v and was discharged home after patient had a negative CT abdomen/pelvis. Pt reports that she has been unable to take her anti- hypertensive medications due to persistent n/v. BP in ED 229/134. She has been scheduled for stress test this morning per primary team. She is evaluated in stress lab. 11/13 Patient is resting in the bed awake and alert not in any distress complains of constipation, denies any nausea or vomiting, states abdominal pain is minimal, denies fever chills or dysuria, denies chest pain or shortness of breath GI note reviewed Discussed with Dr. Tipton Started on H. pylori therapy 11/14 patient is resting in the bed, alert, complains of nausea and weakness, denies vomiting. Also complains of abdominal pain States she is not ready to go as she is weak and needs assistance to help her get UP Will request PT evaluation Accu-Cheks reviewed GI note reviewed Hypertensive urgency: Improving WELL BP systolic 150 today Continue clonidine transdermal patch Continue amlodipine and carvedilol IV hydralazine as needed Nausea/vomiting: GI note reviewed H&H stable Discussed with GI Dr. Tipton Patient apparently had EGD in March of this year at [facility] Was positive for H. pylori but not treated Started on anti-H. pylori treatment today by GI No further GI work-up planned Continue pantoprazole twice daily Weakness Will request PT evaluation Constipation Patient states that she has not had a BM in 4 days Continue daily MiraLAX Hypokalemia: mild Supplemented Secondary to nausea and vomiting Type 2 Diabetes-poorly controlled Continue insulin sliding scale coverage Accu-Cheks reviewed increase basal insulin to 20 units daily MAC Mild Continue IV fluids Avoid nephrotoxins Objective - Constitutional Vitals: Vital Signs - 12hr 11/15/19 11/15/19 11/15/19 06:07 08:00 09:26 Temperature 97.9 F 97.5 F L Pulse Rate 83 86 Respiratory 18 18 Rate Blood Pressure Blood Pressure 166/81 73/41 174/83 [Right] O2 Sat by Pulse 95 97 Oximetry 11/15/19 11/15/19 11/15/19 09:27 09:28 11:00 Temperature Pulse Rate 80 Respiratory 18 Rate Blood Pressure 174/83 174/83 Blood Pressure 152/71 [Right] O2 Sat by Pulse 96 Oximetry General appearance: Present: no acute distress - EENT Eyes: PERRL, EOM intact ENT: hearing intact, clear oral mucosa - Neck Neck: supple, normal ROM, no masses or JVD - Respiratory Respiratory effort: normal Respiratory: bilateral: CTA - Cardiovascular Rhythm: regular Heart Sounds: Present: S1 & S2 Extremities: No edema - Gastrointestinal General gastrointestinal: Present: soft, tender (Tender in the epigastrium, no guarding or rigidity). Absent: hepatomegaly, splenomegaly Rectal Exam: deferred - Genitourinary Female genitourinary: deferred - Integumentary Integumentary: clear - Musculoskeletal Musculoskeletal: strength equal bilaterally - Neurologic Neurologic: no focal deficits - Psychiatric Psychiatric: appropriate mood/affect - Labs CBC & Chem 7: 11/14/19 07:03 11/14/19 07:03 Labs: Abnormal lab results 11/14/19 11/14/19 11/15/19 Range/Units 17:05 22:28 07:40 POC Glucose 263 H 225 H 266 H (70-105) 11/15/19 Range/Units 11:51 POC Glucose 384 H (70-105) HEART Score - HEART Score EKG: Non-specific Age: > 65 Risk factors: > 3 risk factors or hx of atherosclerotic disease Troponin: Troponin T < 0.010 ng/mL (0.00-0.029) 11/12/19 14:04 Troponin: < normal limit - Critical Actions Critical Actions: 4-6 pts:12-16.6% risk of adverse cardiac event. Should be admitted
[2019-11-15] MEDS: INSULIN GLARGINE 100 UNITS/ML SUB-Q SCH (22:44)
[2019-11-16] MEDS: INSULIN REGULAR, HUMAN 100 UNIT/ML 3ML VIAL SUB-Q SCH ×4 (08:40→22:45)
--- NOTE | 2019-11-16 09:05 | Progress Note ---
Subjective Date of service: 11/16/19 Interval history: Patient is a 68 YO female with a history of hypertension, diabetes and reported AMI "many years ago" with no intervention required. She is previously unknown to our practice. She presented with c/o nausea and vomiting. Cardiology has been consulted for chest pain, although pt denies any occurrence of chest pain. Pt denies any SOB, palpitations, diaphoresis, dizziness or syncope. Pt presented to [facility] ED 2 days ago for n/v and was discharged home after patient had a negative CT abdomen/pelvis. Pt reports that she has been unable to take her anti- hypertensive medications due to persistent n/v. BP in ED 229/134. She has been scheduled for stress test this morning per primary team. She is evaluated in stress lab. 11/13 Patient is resting in the bed awake and alert not in any distress complains of constipation, denies any nausea or vomiting, states abdominal pain is minimal, denies fever chills or dysuria, denies chest pain or shortness of breath GI note reviewed Discussed with Dr. Tipton Started on H. pylori therapy 11/14 patient is resting in the bed, alert, complains of nausea and weakness, denies vomiting. Also complains of abdominal pain States she is not ready to go as she is weak and needs assistance to help her get UP Will request PT evaluation Accu-Cheks reviewed GI note reviewed 11/15 alert, NAD, c/o weakness. needs assistance for ADLs PT /OT consulted GI note reviewed A/P; Hypertensive urgency: resolved now has low normal BP stop clonidine transdermal patch Continue amlodipine and carvedilol IV hydralazine as needed Nausea/vomiting: GI note reviewed H&H stable Discussed with GI Dr. Tipton Patient apparently had EGD in March of this year at [facility] Was positive for H. pylori but not treated Started on anti-H. pylori treatment today by GI No further GI work-up planned Continue pantoprazole twice daily Weakness PT / OT consulted Constipation Continue daily MiraLAX Hypokalemia: mild Supplemented Secondary to nausea and vomiting Type 2 Diabetes-poorly controlled Continue insulin sliding scale coverage Accu-Cheks reviewed cont. basal insulin to 20 units daily MAC Mild S cr 1.3 off IVF Avoid nephrotoxins check labs in am Objective - Constitutional Vitals: Vital Signs - 12hr 11/15/19 11/15/19 11/16/19 22:18 23:18 02:19 Temperature 98.1 F Pulse Rate 77 74 Respiratory 18 Rate Blood Pressure 149/73 111/56 O2 Sat by Pulse 91 97 Oximetry 11/16/19 11/16/19 02:24 03:33 Temperature 98.0 F Pulse Rate 79 78 Respiratory 17 Rate Blood Pressure 77/43 O2 Sat by Pulse 98 Oximetry General appearance: Present: no acute distress - EENT Eyes: PERRL, EOM intact ENT: hearing intact, clear oral mucosa - Neck Neck: supple, normal ROM, no masses or JVD - Respiratory Respiratory effort: normal Respiratory: bilateral: CTA - Cardiovascular Rhythm: regular Heart Sounds: Present: S1 & S2 Extremities: No edema - Gastrointestinal General gastrointestinal: Present: soft, tender (mildly tender in the epigastrium) Rectal Exam: deferred - Integumentary Integumentary: clear - Musculoskeletal Musculoskeletal: generalized weakness - Neurologic Neurologic: moves all extremities - Psychiatric Psychiatric: appropriate mood/affect - Labs CBC & Chem 7: 11/14/19 07:03 11/14/19 07:03 Labs: Abnormal lab results 11/15/19 11/15/19 11/15/19 Range/Units 11:51 16:49 20:07 POC Glucose 384 H 200 H 108 H (70-105) 11/15/19 11/16/19 11/16/19 Range/Units 22:57 07:14 08:38 POC Glucose 156 H 214 H 224 H (70-105) HEART Score - HEART Score EKG: Non-specific Age: > 65 Risk factors: > 3 risk factors or hx of atherosclerotic disease Troponin: Troponin T < 0.010 ng/mL (0.00-0.029) 11/12/19 14:04 Troponin: < normal limit - Critical Actions Critical Actions: 4-6 pts:12-16.6% risk of adverse cardiac event. Should be admitted
[2019-11-16] MEDS: amLODIPine 5 MG TAB PO SCH (11:05)
[2019-11-16] MEDS: LISINOPRIL 20 MG TAB PO SCH (11:50)
[2019-11-16] MEDS: SERTRALINE 50 MG TAB PO SCH (11:50)
[2019-11-16] MEDS: LACOSAMIDE 100 MG TAB PO SCH ×2 (11:52→22:40)
[2019-11-16] MEDS: AMOXICILLIN 500 MG CAP PO SCH ×2 (11:52→22:42)
[2019-11-16] MEDS: PANTOPRAZOLE 40 MG TAB PO SCH ×2 (11:53→22:42)
[2019-11-16] MEDS: metFORMIN 500 MG TAB PO SCH ×2 (11:53→17:36)
[2019-11-16] MEDS: POLYETHYLENE GLYCOL 3350 17 GM POWDER PO SCH (11:53)
[2019-11-16] MEDS: POTASSIUM CHLORIDE ER 20 MEQ TAB PO SCH (11:53)
[2019-11-16] MEDS: carvediloL 25 MG TAB PO SCH ×2 (11:54→22:46)
[2019-11-16] MEDS: ASPIRIN EC 81 MG TAB PO SCH (11:54)
[2019-11-16] MEDS: CLARITHROMYCIN 500 MG TAB PO SCH ×2 (11:54→22:39)
[2019-11-16] MEDS: levETIRAcetam 500 MG/5 ML ORAL LIQD PO SCH ×2 (11:54→22:41)
[2019-11-16] MEDS ORDERED: LISINOPRIL 20 MG TAB PO SCH (14:09)
[2019-11-16] MEDS ORDERED: SODIUM CHLORIDE 0.9% 1000 ML 1,000 ML ONE (15:48)
--- NOTE | 2019-11-16 16:43 | Gastroenterology Progress Note ---
Assessment and Plan This is a 68 yo female with pmh of HTN, DM (poorly controlled), CAD, and HLD admitted on 11/12/2019 for hypertensive urgency, chest pain after presenting with nausea/vomiting, could not keep her BP medications down. - Patient Problems (1) Intractable nausea and vomiting Current Visit: Yes Status: Acute Plan to address problem: # Nausea/vomiting: worsening of chronic symptoms. - per daughter and records, patient was admitted at [facility] and had EGD for nausea/vomiting in 03/2019. Path showed gastritis and H pylori. Unclear if patient was treated with antibiotics. - etiology likely multifactorial including H pylori, gastritis, elevated BP, possible DM gastroparesis (unclear if officially diagnosed. no gastric emptying study). - CT a/p with contrast and RUQ US were unremarkable from recent ED visit here. - episode of hypotension this PM, receiving IVF. Rec - clear liquids. advance as tolerated. Will switch to full liquids. - no plans for EGD at this time. Last EGD in 03/2019 at [facility]. - started on antibiotics for H pylori (start date 11/14/2019) - antiemetics prn. - PPI PO. - blood glucose control. - miralax daily for bowel regimen/constipation. - will follow. Subjective Date of service: 11/16/19 Interval history: Patient had an episode of hypotension this afternoon. Reports having brown muddy stools. No nausea/vomiting or abdominal pain. Objective - Constitutional Vitals: Temp Pulse Resp BP Pulse Ox 98.5 F 69 18 84/50 98 11/16/19 11:02 11/16/19 11:05 11/16/19 11:02 11/16/19 11:05 11/16/19 11:02 - EENT Eyes: EOM intact ENT: hearing intact - Respiratory Respiratory effort: normal - Cardiovascular Rhythm: regular Heart Sounds: Present: S1 & S2 - Gastrointestinal General gastrointestinal: Present: soft, non-tender, non-distended - Labs CBC & Chem 7: 11/14/19 07:03 11/14/19 07:03 Labs: Laboratory Results - last 24 hr 11/15/19 11/15/19 11/16/19 20:07 22:57 07:14 POC Glucose 108 H 156 H 214 H 11/16/19 11/16/19 11/16/19 08:38 11:16 15:41 POC Glucose 224 H 238 H 236 H
[2019-11-16] MEDS: INSULIN GLARGINE 100 UNITS/ML SUB-Q SCH (22:44)
[2019-11-17] MEDS: INSULIN REGULAR, HUMAN 100 UNIT/ML 3ML VIAL SUB-Q SCH ×4 (08:05→21:17)
[2019-11-17 08:47] LABS: Albumin 2.8 g/dL (3.9-5)
[2019-11-17] MEDS ORDERED: POTASSIUM CHLORIDE ER 20 MEQ TAB PO NR (09:17)
--- NOTE | 2019-11-17 09:23 | Progress Note ---
Subjective Date of service: 11/17/19 Interval history: Patient is a 68 YO female with a history of hypertension, diabetes and reported AMI "many years ago" with no intervention required. She is previously unknown to our practice. She presented with c/o nausea and vomiting. Cardiology has been consulted for chest pain, although pt denies any occurrence of chest pain. Pt denies any SOB, palpitations, diaphoresis, dizziness or syncope. Pt presented to [facility] ED 2 days ago for n/v and was discharged home after patient had a negative CT abdomen/pelvis. Pt reports that she has been unable to take her anti- hypertensive medications due to persistent n/v. BP in ED 229/134. She has been scheduled for stress test this morning per primary team. She is evaluated in stress lab. 11/13 Patient is resting in the bed awake and alert not in any distress complains of constipation, denies any nausea or vomiting, states abdominal pain is minimal, denies fever chills or dysuria, denies chest pain or shortness of breath GI note reviewed Discussed with Dr. Tipton Started on H. pylori therapy 11/14 patient is resting in the bed, alert, complains of nausea and weakness, denies vomiting. Also complains of abdominal pain States she is not ready to go as she is weak and needs assistance to help her get UP Will request PT evaluation Accu-Cheks reviewed GI note reviewed 11/15 alert, NAD, c/o weakness. needs assistance for ADLs PT /OT consulted GI note reviewed 11/16 patient is resting in the bed, no apparent distress, no complaints except generalized weakness PT note reviewed Recommend subacute rehab placement Discussed with family A/P; Hypertensive urgency: resolved now has low normal BP Continue amlodipine stop lisinopril IV hydralazine as needed Nausea/vomiting: GI note reviewed resolved H&H stable Discussed with GI Dr. Tipton Patient apparently had EGD in March of this year at [facility] Was positive for H. pylori but not treated Started on anti-H. pylori treatment today by GI No further GI work-up planned Continue pantoprazole twice daily Weakness PT / OT consulted PT note reviewed For subacute rehab placement Constipation Continue daily MiraLAX Hypokalemia: mild Supplemented Secondary to nausea and vomiting monitor lytes Type 2 Diabetes Continue insulin sliding scale coverage Accu-Cheks reviewed cont. basal insulin to 20 units daily MAC 2/2 ATN S cr 1.3 > 1.9 start on IVF with NS Avoid nephrotoxins check labs in am Objective - Constitutional Vitals: Vital Signs - 12hr 11/16/19 11/16/19 11/17/19 22:46 23:20 04:05 Temperature 97.5 F L Pulse Rate 67 72 Respiratory 18 Rate Blood Pressure 101/53 94/48 O2 Sat by Pulse 100 Oximetry 11/17/19 11/17/19 04:36 07:11 Temperature 97.9 F 97.9 F Pulse Rate 74 77 Respiratory 18 18 Rate Blood Pressure 97/45 102/54 O2 Sat by Pulse 100 100 Oximetry General appearance: Present: no acute distress, mild distress - EENT Eyes: PERRL, EOM intact ENT: hearing intact, clear oral mucosa - Neck Neck: supple, normal ROM - Respiratory Respiratory effort: normal Respiratory: bilateral: CTA - Cardiovascular Rhythm: regular Heart Sounds: Present: S1 & S2 Extremities: No edema - Gastrointestinal General gastrointestinal: Present: soft, non-tender - Integumentary Integumentary: clear - Musculoskeletal Musculoskeletal: strength equal bilaterally, generalized weakness - Neurologic Neurologic: no focal deficits, moves all extremities - Psychiatric Psychiatric: appropriate mood/affect - Labs CBC & Chem 7: 11/14/19 07:03 11/17/19 08:06 Labs: Abnormal lab results 11/16/19 11/16/19 11/16/19 Range/Units 11:16 15:41 23:33 Potassium (3.6-5.0) mmol/L BUN (7-17) mg/dL Creatinine (0.6-1.2) mg/dL Glucose (65-100) mg/dL POC Glucose 238 H 236 H 111 H (70-105) Calcium (8.4-10.2) mg/dL Total Protein (6.3-8.2) g/dL Albumin (3.9-5) g/dL 11/17/19 11/17/19 11/17/19 Range/Units 04:49 07:27 08:06 Potassium 3.3 L (3.6-5.0) mmol/L BUN 50 H (7-17) mg/dL Creatinine 1.9 H (0.6-1.2) mg/dL Glucose 176 H (65-100) mg/dL POC Glucose 182 H 182 H (70-105) Calcium 8.0 L (8.4-10.2) mg/dL Total Protein 5.0 L (6.3-8.2) g/dL Albumin 2.8 L (3.9-5) g/dL HEART Score - HEART Score EKG: Non-specific Age: > 65 Risk factors: > 3 risk factors or hx of atherosclerotic disease Troponin: Troponin T < 0.010 ng/mL (0.00-0.029) 11/12/19 14:04 Troponin: < normal limit - Critical Actions Critical Actions: 4-6 pts:12-16.6% risk of adverse cardiac event. Should be admitted
[2019-11-17] MEDS: SODIUM CHLORIDE 0.9% 1000 ML 1,000 ML IV SCH ×2 (09:33→23:43)
[2019-11-17] MEDS ORDERED: METOCLOPRAMIDE 10 MG/2 ML INJ IV PRN (11:00)
[2019-11-17] MEDS: POLYETHYLENE GLYCOL 3350 17 GM POWDER PO SCH (11:30)
[2019-11-17] MEDS: amLODIPine 5 MG TAB PO SCH (11:30)
[2019-11-17] MEDS: SERTRALINE 50 MG TAB PO SCH (11:30)
[2019-11-17] MEDS: ASPIRIN EC 81 MG TAB PO SCH (11:30)
[2019-11-17] MEDS: LACOSAMIDE 100 MG TAB PO SCH ×2 (11:30→22:10)
[2019-11-17] MEDS: POTASSIUM CHLORIDE ER 20 MEQ TAB PO SCH (11:30)
[2019-11-17] MEDS: PANTOPRAZOLE 40 MG TAB PO SCH ×2 (11:30→22:09)
[2019-11-17] MEDS: carvediloL 25 MG TAB PO SCH ×2 (11:30→22:00)
[2019-11-17] MEDS: metFORMIN 500 MG TAB PO SCH (11:30)
[2019-11-17] MEDS: CLARITHROMYCIN 500 MG TAB PO SCH ×2 (11:30→22:08)
[2019-11-17] MEDS: AMOXICILLIN 500 MG CAP PO SCH ×2 (11:30→22:09)
[2019-11-17] MEDS: levETIRAcetam 500 MG/5 ML ORAL LIQD PO SCH ×2 (18:36→22:15)
--- NOTE | 2019-11-17 19:26 | Gastroenterology Progress Note ---
Assessment and Plan This is a 68 yo female with pmh of HTN, DM (poorly controlled), CAD, and HLD admitted on 11/12/2019 for hypertensive urgency, chest pain after presenting with nausea/vomiting, could not keep her BP medications down. - Patient Problems (1) Intractable nausea and vomiting Current Visit: Yes Status: Acute Plan to address problem: # Nausea/vomiting: worsening of chronic symptoms. - per daughter and records, patient was admitted at [facility] and had EGD for nausea/vomiting in 03/2019. Path showed gastritis and H pylori. Unclear if patient was treated with antibiotics. - etiology likely multifactorial including H pylori, gastritis, elevated BP, possible DM gastroparesis (unclear if officially diagnosed. no gastric emptying study). - CT a/p with contrast and RUQ US were unremarkable from recent ED visit here. - clinically improved. Rec - advance diet as tolerated. - no plans for EGD at this time. Last EGD in 03/2019 at [facility]. - started on antibiotics for H pylori (start date 11/14/2019) - antiemetics prn. - PPI PO. - blood glucose control. - miralax daily for bowel regimen/constipation. - no further GI recommendations. - will sign off. please call with questions. Subjective Date of service: 11/17/19 Interval history: Patient states she feels better today. No abdominal pain. Objective - Constitutional Vitals: Temp Pulse Resp BP Pulse Ox 98.0 F 75 18 114/54 95 11/17/19 16:17 11/17/19 16:17 11/17/19 16:17 11/17/19 16:17 11/17/19 16:17 General appearance: no acute distress - EENT ENT: hearing intact - Neck Neck: supple - Respiratory Respiratory effort: normal - Cardiovascular Rhythm: regular Heart Sounds: Present: S1 & S2 - Gastrointestinal General gastrointestinal: Present: soft, non-tender, non-distended - Labs CBC & Chem 7: 11/14/19 07:03 11/17/19 08:06 Labs: Laboratory Results - last 24 hr 11/16/19 11/16/19 11/17/19 22:20 23:33 04:49 Sodium Potassium Chloride Carbon Dioxide Anion Gap BUN Creatinine Estimated GFR BUN/Creatinine Ratio Glucose POC Glucose 88 111 H 182 H Calcium Total Bilirubin AST ALT Alkaline Phosphatase Total Protein Albumin Albumin/Globulin Ratio 11/17/19 11/17/19 11/17/19 07:27 08:06 11:25 Sodium 138 Potassium 3.3 L Chloride 101.9 Carbon Dioxide 25 Anion Gap 14 BUN 50 H Creatinine 1.9 H Estimated GFR 32 BUN/Creatinine Ratio 26 Glucose 176 H POC Glucose 182 H 197 H Calcium 8.0 L Total Bilirubin 0.40 AST 35 ALT 49 Alkaline Phosphatase 104 Total Protein 5.0 L Albumin 2.8 L Albumin/Globulin Ratio 1.3 11/17/19 16:33 Sodium Potassium Chloride Carbon Dioxide Anion Gap BUN Creatinine Estimated GFR BUN/Creatinine Ratio Glucose POC Glucose 229 H Calcium Total Bilirubin AST ALT Alkaline Phosphatase Total Protein Albumin Albumin/Globulin Ratio
[2019-11-17] MEDS: ONDANSETRON 4 MG/2 ML INJ IV PRN (23:39)
[2019-11-18] MEDS: INSULIN GLARGINE 100 UNITS/ML SUB-Q SCH ×2 (02:20→22:00)
[2019-11-18] MEDS: ONDANSETRON 4 MG/2 ML INJ IV PRN (06:14)
[2019-11-18 07:37] LABS: Calcium 8.2 mg/dL (8.4-10.2)
[2019-11-18] MEDS: SERTRALINE 50 MG TAB PO SCH (09:39)
[2019-11-18] MEDS: CLARITHROMYCIN 500 MG TAB PO SCH ×2 (09:39→21:39)
[2019-11-18] MEDS: AMOXICILLIN 500 MG CAP PO SCH ×2 (09:39→22:00)
[2019-11-18] MEDS: ASPIRIN EC 81 MG TAB PO SCH (09:39)
[2019-11-18] MEDS: POTASSIUM CHLORIDE ER 20 MEQ TAB PO SCH (09:39)
[2019-11-18] MEDS: PANTOPRAZOLE 40 MG TAB PO SCH ×2 (09:40→21:40)
[2019-11-18] MEDS: POLYETHYLENE GLYCOL 3350 17 GM POWDER PO SCH (09:40)
[2019-11-18] MEDS: LACOSAMIDE 100 MG TAB PO SCH ×2 (09:40→21:59)
[2019-11-18] MEDS: INSULIN REGULAR, HUMAN 100 UNIT/ML 3ML VIAL SUB-Q SCH ×4 (10:07→22:01)
[2019-11-18] MEDS: amLODIPine 5 MG TAB PO SCH (11:28)
[2019-11-18] MEDS: carvediloL 25 MG TAB PO SCH ×2 (11:37→21:40)
[2019-11-18] MEDS: levETIRAcetam 500 MG/5 ML ORAL LIQD PO SCH ×2 (12:04→21:43)
--- NOTE | 2019-11-18 13:12 | Progress Note ---
Assessment and Plan --Hypertensive urgency: resolved now has low normal BP Continue amlodipine stop lisinopril IV hydralazine as needed Stress test showed no reversible ischemia --Nausea/vomiting: GI note reviewed resolved H&H stable Discussed with GI Dr. Tipton Patient apparently had EGD in March of this year at [facility] Was positive for H. pylori but not treated Started on anti-H. pylori treatment today by GI No further GI work-up planned Continue pantoprazole twice daily --Weakness/physical debility PT / OT consulted PT note reviewed For subacute rehab placement --Constipation Continue daily MiraLAX --Hypokalemia: mild Getting supplemented Secondary to nausea and vomiting monitor lytes --Type 2 Diabetes Continue insulin sliding scale coverage Accu-Cheks reviewed cont. basal insulin to 20 units daily --MAC 2/2 ATN S cr 1.3 > 1.9 start on IVF with NS Avoid nephrotoxins check labs in am --DVT prophylaxis --Full code Brief history: Patient is a 68 YO female with a history of hypertension, diabetes and reported AMI "many years ago" with no intervention required. She is previously unknown to our practice. She presented with c/o nausea and vomiting. Cardiology has been consulted for chest pain, although pt denies any occurrence of chest pain. Pt denies any SOB, palpitations, diaphoresis, dizziness or syncope. Pt presented to [facility] ED 2 days ago for n/v and was discharged home after patient had a negative CT abdomen/pelvis. Pt reports that she has been unable to take her anti-hypertensive medications due to persistent n/v. BP in ED 229/134. She has been scheduled for stress test. 11/13 Patient is resting in the bed awake and alert not in any distress complains of constipation, denies any nausea or vomiting, states abdominal pain is minimal, denies fever chills or dysuria, denies chest pain or shortness of breath. GI note reviewed Discussed with Dr. Tipton. Started on H. pylori therapy 11/14 patient is resting in the bed, alert, complains of nausea and weakness, denies vomiting. Also complains of abdominal pain States she is not ready to go as she is weak and needs assistance to help her get UP Will request PT evaluation. Accu-Cheks reviewed. GI note reviewed 11/15 alert, NAD, c/o weakness. needs assistance for ADLs. PT /OT consulted. GI note reviewed 11/16 patient is resting in the bed, no apparent distress, no complaints except generalized weakness. PT note reviewed Recommend subacute rehab placement. Discussed with family 11/17; replete electrolytes -K, BMP in the morning, continue supportive care. Waiting for subacute rehab placement. Subjective Date of service: 11/18/19 Interval history: Patient seen and examined. Medical records and medication list reviewed. No acute event overnight noted by the RN. Patient denies any chest pain or difficulty breathing. Patient is tolerating diet. Discussed plan of care at bedside with patient. Waiting for placement Objective - Exam Narrative Exam: General appearance: Present: no acute distress, mild distress - EENT Eyes: PERRL, EOM intact ENT: hearing intact, clear oral mucosa - Neck Neck: supple, normal ROM - Respiratory Respiratory effort: normal Respiratory: bilateral: CTA - Cardiovascular Rhythm: regular Heart Sounds: Present: S1 & S2 Extremities: No edema - Gastrointestinal General gastrointestinal: Present: soft, non-tender - Integumentary Integumentary: clear - Musculoskeletal Musculoskeletal: strength equal bilaterally, generalized weakness - Neurologic Neurologic: no focal deficits, moves all extremities - Psychiatric Psychiatric: appropriate mood/affect - Constitutional Vitals: Vital Signs - 12hr 11/18/19 11/18/19 11/18/19 05:27 07:01 11:12 Temperature 97.8 F 98.6 F 98.0 F Pulse Rate 73 73 80 Respiratory 18 18 18 Rate Blood Pressure 123/66 122/59 Blood Pressure 117/54 [Right] O2 Sat by Pulse 99 100 100 Oximetry - Labs CBC & Chem 7: 11/14/19 07:03 11/18/19 06:38 Labs: Abnormal lab results 11/17/19 11/17/19 11/18/19 Range/Units 16:33 20:42 06:38 Potassium 3.2 L (3.6-5.0) mmol/L BUN 38 H (7-17) mg/dL Creatinine 1.3 H (0.6-1.2) mg/dL POC Glucose 229 H 219 H (70-105) Calcium 8.2 L (8.4-10.2) mg/dL 11/18/19 Range/Units 11:44 Potassium (3.6-5.0) mmol/L BUN (7-17) mg/dL Creatinine (0.6-1.2) mg/dL POC Glucose 228 H (70-105) Calcium (8.4-10.2) mg/dL HEART Score - HEART Score EKG: Non-specific Age: > 65 Risk factors: > 3 risk factors or hx of atherosclerotic disease Troponin: Troponin T < 0.010 ng/mL (0.00-0.029) 11/12/19 14:04 Troponin: < normal limit - Critical Actions Critical Actions: 4-6 pts:12-16.6% risk of adverse cardiac event. Should be admitted
[2019-11-18] MEDS: SODIUM CHLORIDE 0.9% 1000 ML 1,000 ML IV SCH (14:12)
[2019-11-19] MEDS: SODIUM CHLORIDE 0.9% 1000 ML 1,000 ML IV SCH ×2 (00:34→11:49)
[2019-11-19 08:06] LABS: BUN/Creatinine Ratio 19; Blood Urea Nitrogen 19 mg/dL (7-17); Calcium 8.1 mg/dL (8.4-10.2); Hemolysis Index 2
[2019-11-19] MEDS: metFORMIN 500 MG TAB PO SCH ×2 (08:38→17:16)
[2019-11-19] MEDS: POTASSIUM CHLORIDE ER 20 MEQ TAB PO SCH ×2 (08:39→09:27)
[2019-11-19] MEDS: levETIRAcetam 500 MG/5 ML ORAL LIQD PO SCH ×3 (08:39→23:11)
[2019-11-19] MEDS: LACOSAMIDE 100 MG TAB PO SCH ×3 (08:39→23:11)
[2019-11-19] MEDS: CLARITHROMYCIN 500 MG TAB PO SCH ×3 (08:40→23:10)
[2019-11-19] MEDS: amLODIPine 5 MG TAB PO SCH ×2 (08:40→09:26)
[2019-11-19] MEDS: PANTOPRAZOLE 40 MG TAB PO SCH ×3 (08:40→23:12)
[2019-11-19] MEDS: carvediloL 25 MG TAB PO SCH ×3 (08:40→23:15)
[2019-11-19] MEDS: AMOXICILLIN 500 MG CAP PO SCH ×3 (08:40→23:11)
[2019-11-19] MEDS: POLYETHYLENE GLYCOL 3350 17 GM POWDER PO SCH ×2 (08:41→09:28)
[2019-11-19] MEDS: ASPIRIN EC 81 MG TAB PO SCH ×2 (08:41→09:27)
[2019-11-19] MEDS: SERTRALINE 50 MG TAB PO SCH ×2 (08:41→09:28)
[2019-11-19] MEDS: INSULIN REGULAR, HUMAN 100 UNIT/ML 3ML VIAL SUB-Q SCH ×4 (08:41→23:13)
--- NOTE | 2019-11-19 17:52 | Progress Note ---
Assessment and Plan - Patient Problems (1) Angina at rest Current Visit: Yes Status: Acute Plan to address problem: Serial cardiac enzymes, EKG, telemetry, supportive care. Cardiology consulted. Negative cardiac work-up. (2) Hypertensive emergency Current Visit: Yes Status: Acute Plan to address problem: Monitor blood pressure every shift, continue medical management. (3) Diabetes Current Visit: Yes Status: Chronic Plan to address problem: Consistent carbohydrate diet, sliding scale insulin therapy, Accu-Chek, hypoglycemia protocol (4) Debility Current Visit: Yes Status: Acute Plan to address problem: Physical therapy consulted, continue supportive care, discharge planning to SNF when bed available (5) Peptic ulcer disease Current Visit: Yes Status: Acute (6) DVT prophylaxis Current Visit: Yes Status: Acute Plan to address problem: SCD to bilateral lower extremities while in bed (7) Advance care planning Current Visit: Yes Status: Acute Plan to address problem: Disease education conducted, patient is full code, prognosis discussed, patient knowledges understanding and agreement with care plan, +30 minutes. History Interval history: 69 YO Female HD #7 with HTN Urgency, Angina, Debility, PUD pending SNF Placement. Patient resting in bed. Patient continues to acknowledge generalized weakness. Patient denies pain. No reported nursing events. Case management consulted for assistance with discharge planning and placement. Patient is currently awaiting placement. Hospitalist Physical - Constitutional Vitals: Temp Pulse Resp BP Pulse Ox 98.2 F 74 20 140/74 99 11/19/19 15:59 11/19/19 15:59 11/19/19 15:59 11/19/19 15:59 11/19/19 15:59 General appearance: Present: no acute distress, mild distress, obese - EENT Eyes: Present: PERRL, EOM intact - Neck Neck: Present: supple - Respiratory Respiratory effort: normal Respiratory: bilateral: diminished - Cardiovascular Rhythm: regular Heart Sounds: Present: S1 & S2 - Extremities Extremities: no ischemia Extremity abnormal: edema Peripheral Pulses: within normal limits - Abdominal General gastrointestinal: soft, non-tender, non-distended - Integumentary Integumentary: Present: clear, dry - Psychiatric Psychiatric: appropriate mood/affect, intact judgment & insight, memory intact - Neurologic Neurologic: moves all extremities, no gait normal HEART Score - HEART Score EKG: Non-specific Age: > 65 Risk factors: > 3 risk factors or hx of atherosclerotic disease Troponin: Troponin T < 0.010 ng/mL (0.00-0.029) 11/12/19 14:04 Troponin: < normal limit - Critical Actions Critical Actions: 4-6 pts:12-16.6% risk of adverse cardiac event. Should be admitted Results - Labs CBC & Chem 7: 11/14/19 07:03 11/19/19 07:06 Labs: Laboratory Last Values WBC 11.1 K/mm3 (4.5-11.0) H 11/14/19 07:03 RBC 4.64 M/mm3 (3.65-5.03) 11/14/19 07:03 Hgb 13.2 gm/dl (10.1-14.3) 11/14/19 07:03 Hct 39.1 % (30.3-42.9) 11/14/19 07:03 MCV 84 fl (79-97) 11/14/19 07:03 MCH 29 pg (28-32) 11/14/19 07:03 MCHC 34 % (30-34) 11/14/19 07:03 RDW 15.7 % (13.2-15.2) H 11/14/19 07:03 Plt Count 200 K/mm3 (140-440) 11/14/19 07:03 Lymph % (Auto) 10.7 % (13.4-35.0) L 11/14/19 07:03 [place] % (Auto) 4.4 % (0.0-7.3) 11/14/19 07:03 Eos % (Auto) 0.0 % (0.0-4.3) 11/14/19 07:03 Baso % (Auto) 0.7 % (0.0-1.8) 11/14/19 07:03 Lymph # 1.2 K/mm3 (1.2-5.4) 11/14/19 07:03 [place] # 0.5 K/mm3 (0.0-0.8) 11/14/19 07:03 Eos # 0.0 K/mm3 (0.0-0.4) 11/14/19 07:03 Baso # 0.1 K/mm3 (0.0-0.1) 11/14/19 07:03 Seg Neutrophils % 84.2 % (40.0-70.0) H 11/14/19 07:03 Seg Neutrophils # 9.4 K/mm3 (1.8-7.7) H 11/14/19 07:03 PT 12.9 Sec. (12.2-14.9) 11/12/19 07:26 INR 0.95 (0.87-1.13) 11/12/19 07:26 APTT 29.7 Sec. (24.2-36.6) 11/12/19 07:26 Sodium 138 mmol/L (137-145) 11/19/19 07:06 Potassium 3.0 mmol/L (3.6-5.0) L 11/19/19 07:06 Chloride 102.2 mmol/L (98-107) 11/19/19 07:06 Carbon Dioxide 25 mmol/L (22-30) 11/19/19 07:06 Anion Gap 14 mmol/L 11/19/19 07:06 BUN 19 mg/dL (7-17) H 11/19/19 07:06 Creatinine 1.0 mg/dL (0.6-1.2) 11/19/19 07:06 Estimated GFR > 60 ml/min 11/19/19 07:06 BUN/Creatinine Ratio 19 % 11/19/19 07:06 Glucose 193 mg/dL (65-100) H 11/19/19 07:06 POC Glucose 101 (70-105) 11/19/19 16:14 Calcium 8.1 mg/dL (8.4-10.2) L 11/19/19 07:06 Magnesium 1.90 mg/dL (1.7-2.3) 11/14/19 07:03 Total Bilirubin 0.40 mg/dL (0.1-1.2) 11/17/19 08:06 AST 35 units/L (5-40) 11/17/19 08:06 ALT 49 units/L (7-56) 11/17/19 08:06 Alkaline Phosphatase 104 units/L (35-129) 11/17/19 08:06 Troponin T < 0.010 ng/mL (0.00-0.029) 11/12/19 14:04 Total Protein 5.0 g/dL (6.3-8.2) L 11/17/19 08:06 Albumin 2.8 g/dL (3.9-5) L 11/17/19 08:06 Albumin/Globulin Ratio 1.3 % 11/17/19 08:06 Lipase 11 units/L (13-60) L 11/12/19 04:46 Dubose/IV: Voiding Method Bedside Commode IV Catheter Type [Left Upper INT / Saline Lock arm] Active Medications - Current Medications Current Medications: Generic Name Dose Route Start Last Admin Trade Name Freq PRN Reason Stop Dose Admin Amlodipine Besylate 5 mg 11/15/19 10:00 11/19/19 09:26 Amlodipine PO Not Given QDAY [facility] Amoxicillin 1,000 mg 11/14/19 22:00 11/19/19 09:28 Trimox PO Not Given Q12HR [facility] Aspirin 81 mg 11/13/19 10:00 11/19/19 09:27 Halfprin Ec PO Not Given DAILY [facility] Atorvastatin Calcium 40 mg 11/13/19 22:00 11/18/19 21:39 Lipitor PO 40 mg QHS [facility] Administration Carvedilol 25 mg 11/13/19 10:00 11/19/19 09:27 Coreg PO Not Given BID [facility] Clarithromycin 500 mg 11/14/19 22:00 11/19/19 09:27 Biaxin PO Not Given Q12HR [facility] Ergocalciferol 50,000 unit 11/13/19 12:00 11/14/19 05:53 Vitamin D2 PO Not Given Mo@1000 [facility] Hydralazine HCl 5 mg 11/12/19 09:21 Apresoline IV Q4HR PRN Hypertension Sodium Chloride 1,000 mls @ 100 mls/hr 11/17/19 09:30 11/19/19 11:49 Nacl 0.9% 1000 Ml IV 100 mls/hr DIRECT [facility] Administration Insulin Glargine 15 units 11/14/19 22:00 11/18/19 22:00 Lantus SUB-Q 15 units QHS [facility] Administration Insulin Human Regular 0 unit 11/12/19 16:30 11/19/19 17:16 Humulin R SUB-Q Not Given ACHS [facility] Protocol Labetalol HCl 10 mg 11/13/19 18:00 11/15/19 06:43 Labetalol IV 10 mg Q4HR PRN Administration Blood Pressure Lacosamide 200 mg 11/13/19 10:30 11/19/19 09:28 Vimpat PO Not Given Q12HR [facility] Levetiracetam 750 mg 11/13/19 10:00 11/19/19 09:27 Keppra PO Not Given BID [facility] Metformin HCl 1,000 mg 11/13/19 10:00 11/19/19 17:16 Glucophage PO Not Given BIDDIAB [facility] Metoclopramide HCl 5 mg 11/17/19 11:00 11/18/19 12:07 Reglan IV 5 mg Q6H PRN Administration Nausea And Vomiting Nitroglycerin 0.4 mg 11/12/19 10:00 Nitrostat SL .Q5MIN PRN Chest Pain Ondansetron HCl 4 mg 11/13/19 05:44 11/18/19 06:14 Zofran IV 4 mg Q8H PRN Administration Nausea And Vomiting Pantoprazole Sodium 40 mg 11/14/19 22:00 11/19/19 09:28 Protonix PO Not Given BID [facility] Polyethylene Glycol 17 gm 11/14/19 12:00 11/19/19 09:28 Miralax 3350 PO Not Given QDAY [facility] Potassium Chloride 20 meq 11/13/19 10:00 11/19/19 09:27 K-Dur PO Not Given QDAY [facility] Sertraline HCl 150 mg 11/13/19 10:00 11/19/19 09:28 Zoloft PO Not Given QDAY [facility] Nutrition/Malnutrition Assess - Dietary Evaluation Nutrition/Malnutrition Findings: Nutrition Notes Start: 11/17/19 09:40 Freq: Status: Active Protocol: Document 11/17/19 09:40 EN (Rec: 11/17/19 10:44 EN [id number]) Co-Sign 11/17/19 09:40 LP Nutrition Notes Need for Assessment generated from: LOS Initial or Follow up Assessment Current Diagnosis Diabetes Other Pertinent Diagnosis Chest Pain Current Diet Full Liquid Diet Labs/Tests Reviewed, Glucose 182 Pertinent Medications Reviewed Height 5 ft 2.5 in Weight 76.5 kg [place] Body Weight (kg) 51.13 BMI 30.3 Intake Prior to Admission Poor Weight Status Obese Subjective/Other Information Pt seen for LOS. Pt currently ordered a full liquid diet. Pt states that she is tolerating the diet. Pt unable to recall how much of her dinner she was able to consume . Pt states that she has not had any recent nausea or vomiting. Pt has multiple juice and milk containers on bedside table. Pt agreeable to trying ONS Glucerna daily, flavor preference is chocolate . 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 No Is Patient Ambulatory and/or Out of Bed No REE-([facility]-confined to bed) 1513.032 Calculation Used for Recommendations [facility] Additional Notes Protein needs are 76-92g (1-1. 2g/kg) Fluid needs are 1 ml/kg Nutrition Intervention Change Diet Order: Continue Full Liquid Diet Add Supplement/Snack (indicate name/kcal Glucerna Chocolate Daily /protein ) Provides kCal: 220 Provides Protein (gm) 10 Goal #1 Meet 75% of energy and protein needs with meals and ONS Anticipated Discharge Needs: Full liquid diet with ONS as needed Follow-Up By: 11/21/19 Additional Comments Follow for intakes and ONS tolerance
[2019-11-19] MEDS: INSULIN GLARGINE 100 UNITS/ML SUB-Q SCH (23:09)
[2019-11-20] MEDS: metFORMIN 500 MG TAB PO SCH ×2 (09:07→17:12)
[2019-11-20] MEDS: INSULIN REGULAR, HUMAN 100 UNIT/ML 3ML VIAL SUB-Q SCH ×4 (09:08→23:32)
[2019-11-20] MEDS: PANTOPRAZOLE 40 MG TAB PO SCH ×2 (10:38→23:31)
[2019-11-20] MEDS: LACOSAMIDE 100 MG TAB PO SCH ×2 (10:39→23:30)
[2019-11-20] MEDS: carvediloL 25 MG TAB PO SCH ×2 (10:39→23:30)
[2019-11-20] MEDS: levETIRAcetam 500 MG/5 ML ORAL LIQD PO SCH ×2 (10:40→23:29)
[2019-11-20] MEDS: amLODIPine 5 MG TAB PO SCH (10:40)
[2019-11-20] MEDS: ASPIRIN EC 81 MG TAB PO SCH (10:40)
[2019-11-20] MEDS: SERTRALINE 50 MG TAB PO SCH (10:40)
[2019-11-20] MEDS: POLYETHYLENE GLYCOL 3350 17 GM POWDER PO SCH (10:40)
[2019-11-20] MEDS: CLARITHROMYCIN 500 MG TAB PO SCH ×2 (10:41→23:28)
[2019-11-20] MEDS: AMOXICILLIN 500 MG CAP PO SCH ×2 (10:41→23:28)
[2019-11-20] MEDS: ERGOCALCIFEROL (VIT D2) 50,000 UNIT CAP PO SCH (10:41)
[2019-11-20] MEDS: POTASSIUM CHLORIDE ER 20 MEQ TAB PO SCH (10:45)
[2019-11-20] MEDS: SODIUM CHLORIDE 0.9% 1000 ML 1,000 ML IV SCH (17:12)
--- NOTE | 2019-11-20 19:53 | Progress Note ---
Assessment and Plan - Patient Problems (1) Angina at rest Current Visit: Yes Status: Acute Plan to address problem: Serial cardiac enzymes, EKG, telemetry, supportive care. Cardiology consulted. Negative cardiac work-up. (2) Hypertensive emergency Current Visit: Yes Status: Acute Plan to address problem: Monitor blood pressure every shift, continue medical management. (3) Diabetes Current Visit: Yes Status: Chronic Plan to address problem: Consistent carbohydrate diet, sliding scale insulin therapy, Accu-Chek, hypoglycemia protocol (4) Debility Current Visit: Yes Status: Acute Plan to address problem: Physical therapy consulted, continue supportive care, discharge planning to SNF when bed available (5) Peptic ulcer disease Current Visit: Yes Status: Acute (6) DVT prophylaxis Current Visit: Yes Status: Acute Plan to address problem: SCD to bilateral lower extremities while in bed (7) Advance care planning Current Visit: Yes Status: Acute Plan to address problem: Disease education conducted, patient is full code, prognosis discussed, patient knowledges understanding and agreement with care plan, +30 minutes. History Interval history: 69 YO Female HD #8 with HTN Urgency, Angina, Debility, PUD pending SNF Placement. Patient resting in bed. Patient continues to acknowledge generalized weakness. Patient denies pain. No reported nursing events overnight. Case management consulted for assistance with discharge planning and placement. Patient is medically optimized and currently awaiting placement. Hospitalist Physical - Constitutional Vitals: Temp Pulse Resp BP Pulse Ox 99.2 F 80 18 156/78 100 11/20/19 12:33 11/20/19 12:33 11/20/19 12:33 11/20/19 12:33 11/20/19 15:33 General appearance: Present: no acute distress, mild distress, obese - EENT Eyes: Present: PERRL ENT: hearing intact - Neck Neck: Present: supple - Respiratory Respiratory effort: normal Respiratory: bilateral: CTA - Cardiovascular Rhythm: regular Heart Sounds: Present: S1 & S2 - Extremities Extremities: no ischemia Peripheral Pulses: within normal limits - Abdominal General gastrointestinal: soft, non-distended - Integumentary Integumentary: Present: clear, dry - Psychiatric Psychiatric: appropriate mood/affect, cooperative - Neurologic Neurologic: CNII-XII intact HEART Score - HEART Score EKG: Non-specific Age: > 65 Risk factors: > 3 risk factors or hx of atherosclerotic disease Troponin: Troponin T < 0.010 ng/mL (0.00-0.029) 11/12/19 14:04 Troponin: < normal limit - Critical Actions Critical Actions: 4-6 pts:12-16.6% risk of adverse cardiac event. Should be admitted Results - Labs CBC & Chem 7: 11/14/19 07:03 11/19/19 07:06 Labs: Laboratory Last Values WBC 11.1 K/mm3 (4.5-11.0) H 11/14/19 07:03 RBC 4.64 M/mm3 (3.65-5.03) 11/14/19 07:03 Hgb 13.2 gm/dl (10.1-14.3) 11/14/19 07:03 Hct 39.1 % (30.3-42.9) 11/14/19 07:03 MCV 84 fl (79-97) 11/14/19 07:03 MCH 29 pg (28-32) 11/14/19 07:03 MCHC 34 % (30-34) 11/14/19 07:03 RDW 15.7 % (13.2-15.2) H 11/14/19 07:03 Plt Count 200 K/mm3 (140-440) 11/14/19 07:03 Lymph % (Auto) 10.7 % (13.4-35.0) L 11/14/19 07:03 [place] % (Auto) 4.4 % (0.0-7.3) 11/14/19 07:03 Eos % (Auto) 0.0 % (0.0-4.3) 11/14/19 07:03 Baso % (Auto) 0.7 % (0.0-1.8) 11/14/19 07:03 Lymph # 1.2 K/mm3 (1.2-5.4) 11/14/19 07:03 [place] # 0.5 K/mm3 (0.0-0.8) 11/14/19 07:03 Eos # 0.0 K/mm3 (0.0-0.4) 11/14/19 07:03 Baso # 0.1 K/mm3 (0.0-0.1) 11/14/19 07:03 Seg Neutrophils % 84.2 % (40.0-70.0) H 11/14/19 07:03 Seg Neutrophils # 9.4 K/mm3 (1.8-7.7) H 11/14/19 07:03 PT 12.9 Sec. (12.2-14.9) 11/12/19 07:26 INR 0.95 (0.87-1.13) 11/12/19 07:26 APTT 29.7 Sec. (24.2-36.6) 11/12/19 07:26 Sodium 138 mmol/L (137-145) 11/19/19 07:06 Potassium 3.0 mmol/L (3.6-5.0) L 11/19/19 07:06 Chloride 102.2 mmol/L (98-107) 11/19/19 07:06 Carbon Dioxide 25 mmol/L (22-30) 11/19/19 07:06 Anion Gap 14 mmol/L 11/19/19 07:06 BUN 19 mg/dL (7-17) H 11/19/19 07:06 Creatinine 1.0 mg/dL (0.6-1.2) 11/19/19 07:06 Estimated GFR > 60 ml/min 11/19/19 07:06 BUN/Creatinine Ratio 19 % 11/19/19 07:06 Glucose 193 mg/dL (65-100) H 11/19/19 07:06 POC Glucose 173 (70-105) H 11/20/19 17:18 Calcium 8.1 mg/dL (8.4-10.2) L 11/19/19 07:06 Magnesium 1.90 mg/dL (1.7-2.3) 11/14/19 07:03 Total Bilirubin 0.40 mg/dL (0.1-1.2) 11/17/19 08:06 AST 35 units/L (5-40) 11/17/19 08:06 ALT 49 units/L (7-56) 11/17/19 08:06 Alkaline Phosphatase 104 units/L (35-129) 11/17/19 08:06 Troponin T < 0.010 ng/mL (0.00-0.029) 11/12/19 14:04 Total Protein 5.0 g/dL (6.3-8.2) L 11/17/19 08:06 Albumin 2.8 g/dL (3.9-5) L 11/17/19 08:06 Albumin/Globulin Ratio 1.3 % 11/17/19 08:06 Lipase 11 units/L (13-60) L 11/12/19 04:46 [place]/IV: Voiding Method Bedside Commode IV Catheter Type [Left Upper INT / Saline Lock arm] Active Medications - Current Medications Current Medications: Generic Name Dose Route Start Last Admin Trade Name Freq PRN Reason Stop Dose Admin Amlodipine Besylate 5 mg 11/15/19 10:00 11/20/19 10:40 Amlodipine PO 5 mg QDAY SOL Administration Amoxicillin 1,000 mg 11/14/19 22:00 11/20/19 10:41 Trimox PO 11/28/19 10:01 1,000 mg Q12HR SOL Administration Aspirin 81 mg 11/13/19 10:00 11/20/19 10:40 Halfprin Ec PO 81 mg DAILY SOL Administration Atorvastatin Calcium 40 mg 11/13/19 22:00 11/19/19 23:12 Lipitor PO 40 mg QHS SOL Administration Carvedilol 25 mg 11/13/19 10:00 11/20/19 10:39 Coreg PO 25 mg BID SOL Administration Clarithromycin 500 mg 11/14/19 22:00 11/20/19 10:41 Biaxin PO 11/28/19 10:01 500 mg Q12HR SOL Administration Ergocalciferol 50,000 unit 11/13/19 12:00 11/20/19 10:41 Vitamin D2 PO 50,000 unit Mo@1000 SOL Administration Hydralazine HCl 5 mg 11/12/19 09:21 Apresoline IV Q4HR PRN Hypertension Sodium Chloride 1,000 mls @ 100 mls/hr 11/17/19 09:30 11/20/19 17:12 Nacl 0.9% 1000 Ml IV 100 mls/hr DIRECT SOL Administration Insulin Glargine 15 units 11/14/19 22:00 11/19/19 23:09 Lantus SUB-Q 15 units QHS SOL Administration Insulin Human Regular 0 unit 11/12/19 16:30 11/20/19 17:11 Humulin R SUB-Q 2 unit ACHS SOL Administration Protocol Labetalol HCl 10 mg 11/13/19 18:00 11/15/19 06:43 Labetalol IV 10 mg Q4HR PRN Administration Blood Pressure Lacosamide 200 mg 11/13/19 10:30 11/20/19 10:39 Vimpat PO 200 mg Q12HR SOL Administration Levetiracetam 750 mg 11/13/19 10:00 11/20/19 10:40 Keppra PO 750 mg BID SOL Administration Metformin HCl 1,000 mg 11/13/19 10:00 11/20/19 17:12 Glucophage PO 1,000 mg BIDDIAB SOL Administration Metoclopramide HCl 5 mg 11/17/19 11:00 11/18/19 12:07 Reglan IV 5 mg Q6H PRN Administration Nausea And Vomiting Nitroglycerin 0.4 mg 11/12/19 10:00 11/19/19 23:08 Nitrostat SL 0.4 mg .Q5MIN PRN Administration Chest Pain Ondansetron HCl 4 mg 11/13/19 05:44 11/18/19 06:14 Zofran IV 4 mg Q8H PRN Administration Nausea And Vomiting Pantoprazole Sodium 40 mg 11/14/19 22:00 11/20/19 10:38 Protonix PO 40 mg BID SOL Administration Polyethylene Glycol 17 gm 11/14/19 12:00 11/20/19 10:40 Miralax 3350 PO 17 gm QDAY SOL Administration Potassium Chloride 20 meq 11/13/19 10:00 11/20/19 10:45 K-Dur PO 20 meq QDAY SOL Administration Sertraline HCl 150 mg 11/13/19 10:00 11/20/19 10:40 Zoloft PO 150 mg QDAY SOL Administration Nutrition/Malnutrition Assess - Dietary Evaluation Nutrition/Malnutrition Findings: Nutrition Notes Start: 11/17/19 09:40 Freq: Status: Active Protocol: Document 11/17/19 09:40 EN (Rec: 11/17/19 10:44 EN [id number]) Co-Sign 11/17/19 09:40 LP Nutrition Notes Need for Assessment generated from: LOS Initial or Follow up Assessment Current Diagnosis Diabetes Other Pertinent Diagnosis Chest Pain Current Diet Full Liquid Diet Labs/Tests Reviewed, Glucose 182 Pertinent Medications Reviewed Height 5 ft 2.5 in Weight 76.5 kg [place] Body Weight (kg) 51.13 BMI 30.3 Intake Prior to Admission Poor Weight Status Obese Subjective/Other Information Pt seen for LOS. Pt currently ordered a full liquid diet. Pt states that she is tolerating the diet. Pt unable to recall how much of her dinner she was able to consume . Pt states that she has not had any recent nausea or vomiting. Pt has multiple juice and milk containers on bedside table. Pt agreeable to trying ONS Glucerna daily, flavor preference is chocolate . Burn Absent Trauma Absent GI Symptoms None Food Allergy No Minimum of two criteria No Reduced [employer] Worker Strength Measurably Reduced (severe) #1 Nutrition Diagnosis Inadequate energy intake Etiology Full liquid diet As Evidenced by Signs and Symptoms Diet not meeting patient's estimated calorie and protein needs Is patient on ventilator? No Is Patient Ambulatory and/or Out of Bed No REE-([facility]-confined to bed) 1513.032 Calculation Used for Recommendations [facility] Additional Notes Protein needs are 76-92g (1-1. 2g/kg) Fluid needs are 1 ml/kg Nutrition Intervention Change Diet Order: Continue Full Liquid Diet Add Supplement/Snack (indicate name/kcal Glucerna Chocolate Daily /protein ) Provides kCal: 220 Provides Protein (gm) 10 Goal #1 Meet 75% of energy and protein needs with meals and ONS Anticipated Discharge Needs: Full liquid diet with ONS as needed Follow-Up By: 11/21/19 Additional Comments Follow for intakes and ONS tolerance
[2019-11-20] MEDS: INSULIN GLARGINE 100 UNITS/ML SUB-Q SCH (23:31)
[2019-11-21] MEDS: ONDANSETRON 4 MG/2 ML INJ IV PRN (09:03)
[2019-11-21] MEDS: SODIUM CHLORIDE 0.9% 1000 ML 1,000 ML IV SCH (09:05)
[2019-11-21] MEDS: metFORMIN 500 MG TAB PO SCH ×2 (09:07→17:07)
[2019-11-21] MEDS: levETIRAcetam 500 MG/5 ML ORAL LIQD PO SCH (09:07)
[2019-11-21] MEDS: SERTRALINE 50 MG TAB PO SCH (09:07)
[2019-11-21] MEDS: LACOSAMIDE 100 MG TAB PO SCH (09:07)
[2019-11-21] MEDS: carvediloL 25 MG TAB PO SCH (09:07)
[2019-11-21] MEDS: ASPIRIN EC 81 MG TAB PO SCH (09:07)
[2019-11-21] MEDS: PANTOPRAZOLE 40 MG TAB PO SCH (09:07)
[2019-11-21] MEDS: INSULIN REGULAR, HUMAN 100 UNIT/ML 3ML VIAL SUB-Q SCH ×2 (09:08→12:43)
[2019-11-21] MEDS: POTASSIUM CHLORIDE ER 20 MEQ TAB PO SCH (09:09)
[2019-11-21] MEDS: CLARITHROMYCIN 500 MG TAB PO SCH (09:11)
[2019-11-21] MEDS: POLYETHYLENE GLYCOL 3350 17 GM POWDER PO SCH (09:11)
[2019-11-21] MEDS: AMOXICILLIN 500 MG CAP PO SCH (09:11)
[2019-11-21] MEDS: amLODIPine 5 MG TAB PO SCH (12:44)
[2019-11-21 16:34] VITALS: BP 137/75
--- NOTE | 2019-11-21 17:53 | Discharge Summary ---
Providers - Providers Date of Admission: 11/12/19 15:51 Attending physician: BRADEN WASHINGTON 11/14/19 06:34 Consult to Physician [CONS] Routine Comment: Consulting Provider: WILL DESHPANDE Physician Instructions: Reason For Exam: COFFEE GR[employer] EMESIS 11/15/19 13:53 Physical Therapy Evaluation and Treat [CONS] Routine Comment: Reason For Exam: Weakness 11/16/19 12:28 Occupational Therapy Evaluate and Treat [CONS] Routine Comment: Reason For Exam: weakness Primary care physician: SOFTWARE FIRMWARE ENGINEER Hospitalization Condition: Stable Hospital course: 68 years old female with hypertension, diabetes and coronary artery disease presented to the ER complaining of substernal chest pain. Patient seen and evaluated in the emergency department. Lab and imaging studies reviewed. Patient found to have symptoms consistent with atypical chest pain suspected secondary to gastroesophageal reflux disease. Patient treated with supportive care. Cardiac workup was negative and did not reveal evidence of acute ischemia. Gastroenterology service was consulted. Patient treated with supportive care. Patient hospital course was complicated by Debility. Physical Therapy was consulted. Pt was deemed a candidate for Acute Rehab. Patient medically optimized on the day of discharge. Patient seen and evaluated prior to discharge but no significant physical exam findings. Patient discharged to senior care facility under the care of the emergency medical technician/driver. 35 minutes dedicated to patient discharge and coordination of care. Disposition: [id number]/[id number] SNF W [facility] - Discharge Diagnoses (1) Angina at rest Status: Acute (2) Hypertensive emergency Status: Acute (3) Diabetes Status: Chronic (4) Debility Status: Acute (5) Peptic ulcer disease Status: Acute (6) DVT prophylaxis Status: Acute (7) Advance care planning Status: Acute Core Measure Documentation - Palliative Care Palliative Care/ Comfort Measures: Not Applicable - Core Measures Any of the following diagnoses?: none Exam - Constitutional Vitals: Temp Pulse Resp BP Pulse Ox 98.7 F 78 18 137/75 94 11/21/19 16:24 11/21/19 16:24 11/21/19 16:24 11/21/19 16:24 11/21/19 16:24 General appearance: Present: no acute distress - EENT Eyes: Present: PERRL ENT: hearing intact, clear oral mucosa - Neck Neck: Present: supple, normal ROM - Respiratory Respiratory effort: normal Respiratory: bilateral: CTA - Cardiovascular Heart Sounds: Present: S1 & S2. Absent: rub, click - Extremities Extremities: pulses symmetrical, No edema Peripheral Pulses: within normal limits - Abdominal General gastrointestinal: Present: soft, non-tender, non-distended, normal bowel sounds Female genitourinary: Present: normal - Integumentary Integumentary: Present: clear, warm, dry - Musculoskeletal Musculoskeletal: generalized weakness - Psychiatric Psychiatric: appropriate mood/affect, intact judgment & insight - Neurologic Neurologic: CNII-XII intact, moves all extremities Plan Activity: advance as tolerated Diet: low fat, low cholesterol, low salt Follow up with: PRIMARY CARE, [Primary Care Provider] - 3-5 Days
== END 2019-11-21 17:47 | DRG 391 ==
LOC: ED 04:07 → 4A 09:49 → 3B-SURG 10:12 → OBSVTOIN 15:51
PROVIDERS: ADMIT Hospitalist; ATTEND Internal Medicine
DX: K21.9 Gastro-esophageal reflux disease without esophagitis (principal); N17.0 Acute kidney failure with tubular necrosis; I16.1 Hypertensive emergency; K27.3 Acute peptic ulcer, site unspecified, without hemorrhage or perforation; E87.6 Hypokalemia; E83.42 Hypomagnesemia; I10 Essential (primary) hypertension; E11.9 Type 2 diabetes mellitus without complications; I25.118 Atherosclerotic heart disease of native coronary artery with other forms of angina pectoris; R53.81 Other malaise; Z88.2 Allergy status to sulfonamides; Z79.01 Long term (current) use of anticoagulants; Z79.82 Long term (current) use of aspirin; Z79.899 Other long term (current) drug therapy; I25.2 Old myocardial infarction
CPT/HCPCS: 36415; 71045; 78452; 80048; 80053; 82271; 82962; 83690; 83735; 84484; 85025; 85610; 85730; 87045; 87493; 93005; 93017; 96372; 96374; 96375; G0378; A9270-GY; A9502; C9113; J1815; J2270; J2405; J2765; J2785; J3246; J3475; J3480; J7030

== ENCOUNTER 2020-02-15 19:14 | Inpatient (IN) | payer MEDICARE ==
[2020-02-15] MEDS ORDERED: ASPIRIN 325 MG TAB PO ONE (19:42)
[2020-02-15] MEDS ORDERED: NITROGLYCERIN 0.4 MG TAB SUBL SL PRN (19:59)
[2020-02-15] MEDS ORDERED: MORPHINE 4 MG/1 ML INJ IV ONE (19:59)
[2020-02-15] MEDS ORDERED: SODIUM CHLORIDE 0.9% 250ML 250 ML IV ONE (19:59)
[2020-02-15] MEDS ORDERED: ONDANSETRON 4 MG/2 ML INJ IV ONE (19:59)
--- NOTE | 2020-02-15 20:00 | Emergency Department Report ---
ED General Adult HPI - General Chief complaint: Chest Pain Stated complaint: CHEST PAIN PUI?: No Time Seen by Provider: 02/15/20 19:49 Source: patient, EMS ( EMS documentation not available at time of chart dictation ), RN notes reviewed, old records reviewed Mode of arrival: Stretcher Limitations: Physical Limitation - History of Present Illness Initial comments: The patient was evaluated in the emergency department for symptoms described in the history of present illness. He/she was evaluated in the context of the global COVID-19 pandemic, which necessitated consideration that the patient might be at risk for infection with the virus that causes COVID-19. Institutional protocols and algorithms that pertain to the evaluation of patients at risk for COVID-19 are in a state of rapid change based on information released by regulatory bodies including the CDC and federal and state organizations. These policies and algorithms were followed during the patient's care in the emergency department. Please note that these policies, procedures and recommendations changed on a rapid basis. Patient is a 69-year-old female. Her past medical history includes diabetes, hypertension, heart disease, history of malnutrition, hypoglycemia, hypomagnesemia, and severe protein calorie malnutrition. She recently had a CT angiogram of her chest which was negative for pulmonary embolism/aortic disease. She recently had a cardiac catheterization, which showed left main patent, LAD proximal, mid stents, diffuse 20 to 30% in-stent restenosis, circumflex patent, OM1, OM 2, OM 3 patent, RCA medium caliber, patent, mild LV dysfunction. Cardiology recommended "to treat with medical management of nonobstructive coronary artery disease and mild cardiomyopathy." Today, the patient is brought to the hospital by emergency medical services with a complaint of chest pain. The chest pain is nontraumatic, central, and does not radiate anywhere. The patient endorses vomiting. The patient has chronic shortness of breath. The patient denies headache, abdominal pain, urinary symptoms, hematemesis, bright red blood per rectum. She endorses compliance with her medications. She denies abdominal pain. She denies urinary symptoms. -: Sudden Location: chest Radiation: non-radiation Quality: aching Consistency: constant Improves with: none Worsens with: none - Related Data Home Medications Medication Instructions Recorded Confirmed Last Taken Ergocalciferol (Vitamin D2) 50,000 unit PO QWEEK 11/12/19 02/16/20 Unknown [Vitamin D2] Previous Rx's Medication Instructions Recorded Last Taken Type Aspirin [Adult Aspirin] 81 mg PO DAILY #100 12/18/19 11/10/19 Rx AtorvaSTATin [Lipitor] 40 mg PO QHS #30 12/18/19 Unknown Rx Lacosamide [Vimpat] 200 mg PO BID #60 12/18/19 Unknown Rx Metformin HCl [metFORMIN] 1,000 mg PO BID 30 Days #60 12/18/19 Unknown Rx Metoprolol [Lopressor TAB] 50 mg PO BID 30 Days #60 tablet 12/18/19 Unknown Rx Potassium Chloride [K-Dur] 20 meq PO QDAY #30 12/18/19 11/10/19 Rx Sertraline [Zoloft] 150 mg PO QDAY #30 12/18/19 Unknown Rx levETIRAcetam [Keppra TAB] 750 mg PO BID 30 Days #60 12/18/19 Unknown Rx lisinopriL [Zestril TAB] 5 mg PO QDAY 30 Days #30 12/18/19 Unknown Rx Allergies Allergy/AdvReac Type Severity Reaction Status Date / Time Sulfa (Sulfonamide Allergy Angioedema Verified 03/25/19 01:04 Antibiotics) ED Review of Systems ROS: Stated complaint: CHEST PAIN Other details as noted in HPI Constitutional: malaise, weakness Eyes: denies: eye discharge Respiratory: shortness of breath. denies: cough Cardiovascular: chest pain Gastrointestinal: nausea, vomiting. denies: diarrhea Genitourinary: denies: dysuria Musculoskeletal: myalgia Neurological: weakness Psychiatric: anxiety Hematological/Lymphatic: denies: easy bleeding ED Past Medical Hx - Past Medical History Previous Medical History?: Yes Hx Hypertension: Yes Hx Heart Attack/AMI: Yes Hx Congestive Heart Failure: No Hx Diabetes: Yes Hx Deep Vein Thrombosis: (unknown) Hx Asthma: No Hx COPD: No - Surgical History Past Surgical History?: Yes Hx Pacemaker: No Hx Internal Defibrillator: No Additional Surgical History: c section x1 - Social History Smoking Status: Never Smoker Substance Use Type: None - Medications Home Medications: Home Medications Medication Instructions Recorded Confirmed Last Taken Type Ergocalciferol (Vitamin D2) 50,000 unit PO QWEEK 11/12/19 02/16/20 Unknown History [Vitamin D2] Aspirin [Adult Aspirin] 81 mg PO DAILY #100 12/18/19 02/16/20 11/10/19 Rx AtorvaSTATin [Lipitor] 40 mg PO QHS #30 12/18/19 02/16/20 Unknown Rx Lacosamide [Vimpat] 200 mg PO BID #60 12/18/19 02/16/20 Unknown Rx Metformin HCl [metFORMIN] 1,000 mg PO BID 30 Days #60 12/18/19 02/16/20 Unknown Rx Metoprolol [Lopressor TAB] 50 mg PO BID 30 Days #60 tablet 12/18/19 02/16/20 Unknown Rx Potassium Chloride [K-Dur] 20 meq PO QDAY #30 12/18/19 02/16/20 11/10/19 Rx Sertraline [Zoloft] 150 mg PO QDAY #30 12/18/19 02/16/20 Unknown Rx levETIRAcetam [Keppra TAB] 750 mg PO BID 30 Days #60 12/18/19 02/16/20 Unknown Rx lisinopriL [Zestril TAB] 5 mg PO QDAY 30 Days #30 12/18/19 02/16/20 Unknown Rx ED Physical Exam - General General appearance: alert, anxious, in distress, obese - Head Head exam: Present: atraumatic, normocephalic - Eye Eye exam: Present: normal appearance, EOMI. Absent: nystagmus - ENT ENT exam: Present: normal exam, normal orophraynx, mucous membranes moist, normal external ear exam - Neck Neck exam: Present: normal inspection, full ROM. Absent: tenderness, meningismus - Respiratory Respiratory exam: Present: normal lung sounds bilaterally. Absent: respiratory distress, wheezes, rales, rhonchi, stridor, decreased breath sounds - Cardiovascular Cardiovascular Exam: Present: normal rhythm, tachycardia, normal heart sounds. Absent: bradycardia, irregular rhythm, systolic murmur, diastolic murmur, rubs, gallop - GI/Abdominal GI/Abdominal exam: Present: soft, normal bowel sounds. Absent: distended, tenderness, guarding, rebound, rigid, pulsatile mass - Extremities Exam Extremities exam: Present: normal inspection, full ROM, other (2+ pulses noted in the bilateral upper and lower extremities. There is no palpable cord. negative Homans sign. Muscular compartments are soft. The pelvis is stable.). Absent: pedal edema, calf tenderness - Back Exam Back exam: Present: normal inspection, full ROM. Absent: tenderness, CVA tenderness (R), CVA tenderness (L), paraspinal tenderness, vertebral tenderness - Neurological Exam Neurological exam: Present: alert, other (No facial droop. Tongue midline. Extraocular movements intact bilaterally. Facial sensation intact to light touch in V1, V2, V3 distribution bilaterally. 5 and a 5 strength in 4 extremities. Sensation intact to light touch in 4 extremities.) - Psychiatric Psychiatric exam: Present: anxious - Skin Skin exam: Present: warm, dry, intact, normal color. Absent: rash ED Course Vital Signs 02/15/20 02/15/20 02/15/20 19:30 20:00 20:15 Pulse Rate 115 H 112 H 112 H Respiratory 13 Rate Blood Pressure 201/106 200/112 Blood Pressure 224/116 [Left] O2 Sat by Pulse 100 99 99 Oximetry 02/15/20 02/15/20 02/15/20 20:31 20:45 21:00 Pulse Rate 112 H 118 H 122 H Respiratory 13 10 L Rate Blood Pressure 200/112 202/99 199/97 Blood Pressure [Left] O2 Sat by Pulse 100 100 100 Oximetry 02/15/20 02/15/20 02/15/20 21:15 21:30 21:46 Pulse Rate 109 H 110 H 112 H Respiratory 14 14 15 Rate Blood Pressure 209/124 211/125 212/109 Blood Pressure [Left] O2 Sat by Pulse 99 100 100 Oximetry 02/15/20 02/15/20 02/15/20 22:00 22:16 22:30 Pulse Rate 116 H 116 H 117 H Respiratory 13 15 16 Rate Blood Pressure 212/109 212/109 212/109 Blood Pressure [Left] O2 Sat by Pulse 100 100 100 Oximetry 02/15/20 02/15/20 02/15/20 22:44 22:46 22:48 Pulse Rate 117 H 113 H Respiratory 18 17 Rate Blood Pressure 212/109 183/88 Blood Pressure [Left] O2 Sat by Pulse 100 Oximetry 02/15/20 02/15/20 02/15/20 23:00 23:12 23:14 Pulse Rate 93 H 91 H Respiratory 18 13 18 Rate Blood Pressure 183/88 147/77 Blood Pressure [Left] O2 Sat by Pulse 100 100 Oximetry 02/15/20 02/15/20 02/15/20 23:15 23:30 23:58 Pulse Rate 92 H 90 98 H Respiratory 12 15 11 L Rate Blood Pressure 152/78 146/77 Blood Pressure [Left] O2 Sat by Pulse 100 100 100 Oximetry 02/16/20 02/16/20 02/16/20 00:00 00:16 00:30 Pulse Rate 96 H 98 H 102 H Respiratory 14 16 15 Rate Blood Pressure 174/84 Blood Pressure [Left] O2 Sat by Pulse 100 100 100 Oximetry 02/16/20 02/16/20 02/16/20 00:45 01:00 01:15 Pulse Rate 99 H 98 H 97 H Respiratory 14 15 10 L Rate Blood Pressure 162/64 164/77 160/72 Blood Pressure [Left] O2 Sat by Pulse 100 100 100 Oximetry 02/16/20 02/16/20 02/16/20 01:30 01:45 02:00 Pulse Rate 98 H 104 H 110 H Respiratory 14 Rate Blood Pressure 161/69 185/84 185/84 Blood Pressure [Left] O2 Sat by Pulse 100 100 100 Oximetry 02/16/20 02/16/20 02:16 02:30 Pulse Rate 106 H 106 H Respiratory 12 15 Rate Blood Pressure 134/63 134/63 Blood Pressure [Left] O2 Sat by Pulse 100 100 Oximetry - Reevaluation(s) Reevaluation #1: 02/15/20 21:08 Differential diagnosis, including but not limited to: Pneumonia, urinary tract infection, intra-abdominal infection, obstruction, colitis, diverticulitis, aortic disease, pulmonary embolism, acute coronary syndrome Hypertensive urgency Assessment and plan: 69-year-old female with complex past medical history, coming in with profound hypertension, tachycardia, moderate risk for major adverse cardiac event as per heart score. Laboratory studies show metabolic acidosis, hyperglycemia, hypokalemia, hypomagnesemia. Patient also markedly hypertensive. 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 Treat supportively and symptomatically, reple te potassium, magnesium, obtain CT scan of the chest to exclude aortic disease, given market hypertension, and complaint of chest pain. EKG shows nonspecific changes when compared to prior. Obtain CT scan of the abdomen pelvis to exclude abdominal catastrophe, given complaint of nausea, vomiting, weakness and metabolic acidosis. Check lactic acid, urinalysis, salicylate, acetaminophen, and venous pH. Reassess after initial data points. We anticipate admission once initial diagnostics have resulted. 02/15/20 21:09 02/15/20 21:10 02/15/20 23:40 Please note that this patient had a prolonged stay in this emergency department, and time to admission, secondary to very difficult peripheral IV access. Please see my procedure note for establishing IV access. Patient also found to be significantly hypokalemic. She is also acidotic, with hyperglycemia. Hypokalemia contraindicates insulin therapy. Patient will require IV fluids, and potassium repletion. CT scan of the chest, abdomen, pelvis is pending at this time. Will discuss with the hospital physician. Blood pressure improved in the 180s. States she feels better after pain medicine and nausea medicine. Reevaluation #2: 02/16/20 00:34 Feeling improved. Blood pressure improved. CT scan of the chest negative for acute findings. CT scan of the abdomen pelvis is pending. No further nausea, vomiting. Suspect that patient has probable gastroparesis/GERD/gastritis. This is the most likely reason for the patient to have her nausea and vomiting. Her chest pain is likely secondary to CT scan suggested esophagitis. We will order proton pump inhibitor. Anion gap acidosis, hypokalemia, hypomagnesemia likely secondary to nausea and vomiting, likely secondary to gastroparesis/GERD/gastritis. Elevated blood pressure and tachycardia likely secondary to dehydration, and physiologic stress and anxiety. Hyperglycemia reviewed and appreciated. Insulin therapy will be withheld ending normalization of potassium. Next hospital physician, Dr. Ron to admit 02/16/20 00:57 Urinalysis suggestive of urinary tract infection. This may also be contributing to patient's symptomatology. Antibiotics ordered. - Procedure Description Procedures done: Patient gave verbal informed consent for IV placement, given that multiple members of the healthcare team are unable to establish peripheral IV access. Nursing team unable to establish IV access. Multiple nurses attempted. I evaluated the patient's upper extremities and bilateral external jugular anatomy. Patient did not have suitable peripheral IVs for cannulation. She is not on vasopressors, and does not require central line placement at this time. I evaluated her bilateral upper extremities with ultrasound, and was not able to find a suitable vessel or lumen for cannulation. I turned my attention to the right internal jugular vein, using the superficial ultrasound probe. The right internal jugular vein is easily identified. The skin is then prepped in typical aseptic fashion. 8 cc of 1% lidocaine are infiltrated using typical aseptic technique with a 26-gauge needle. Then, a 3 inch Angiocath, 18-gauge, is easily inserted into the right internal jugular vein, with 1 attempt, and no complications. Placement of line is confirmed using real-time ultrasound guidance. There is easy pulled back of blood, with no obvious infiltration. The patient tolerated this procedure well. This IV is temporary, recommend replacement within 24 hours. ED Medical Decision Making - Lab Data Result diagrams: 02/15/20 20:10 02/16/20 10:41 Vital Signs 02/15/20 19:30 Pulse Rate 115 H Respiratory 13 Rate Blood Pressure 224/116 [Left] O2 Sat by Pulse 100 Oximetry Lab Results 02/15/20 02/15/20 02/15/20 Range/Units 20:10 20:10 20:10 WBC 11.9 H (4.5-11.0) K/mm3 RBC 4.73 (3.65-5.03) M/mm3 Hgb 13.3 (10.1-14.3) gm/dl Hct 39.2 (30.3-42.9) % MCV 83 (79-97) fl MCH 28 (28-32) pg MCHC 34 (30-34) % RDW 13.8 (13.2-15.2) % Plt Count 343 (140-440) K/mm3 Lymph % (Auto) 8.8 L (13.4-35.0) % Osborne % (Auto) 2.5 (0.0-7.3) % Eos % (Auto) 0.0 (0.0-4.3) % Baso % (Auto) 0.8 (0.0-1.8) % Lymph # (Auto) 1.1 L (1.2-5.4) K/mm3 Osborne # (Auto) 0.3 (0.0-0.8) K/mm3 Eos # (Auto) 0.0 (0.0-0.4) K/mm3 Baso # (Auto) 0.1 (0.0-0.1) K/mm3 Seg Neutrophils % 87.9 H (40.0-70.0) % Seg Neutrophils # 10.5 H (1.8-7.7) K/mm3 PT (12.2-14.9) Sec. INR (0.87-1.13) D-Dimer (0-234) ng/mlDDU Sodium 138 (137-145) mmol/L Potassium 3.3 L (3.6-5.0) mmol/L Chloride 98.5 (98-107) mmol/L Carbon Dioxide 13 L (22-30) mmol/L Anion Gap 30 mmol/L BUN 17 (7-17) mg/dL Creatinine 0.8 (0.6-1.2) mg/dL Estimated GFR > 60 ml/min BUN/Creatinine Ratio 21 % Glucose 287 H (65-100) mg/dL Calcium 9.4 (8.4-10.2) mg/dL Magnesium 1.20 L (1.7-2.3) mg/dL Total Creatine Kinase 153 H (30-135) units/L Troponin T < 0.010 (0.00-0.029) ng/mL 02/15/20 Range/Units 20:10 WBC (4.5-11.0) K/mm3 RBC (3.65-5.03) M/mm3 Hgb (10.1-14.3) gm/dl Hct (30.3-42.9) % MCV (79-97) fl MCH (28-32) pg MCHC (30-34) % RDW (13.2-15.2) % Plt Count (140-440) K/mm3 Lymph % (Auto) (13.4-35.0) % Osborne % (Auto) (0.0-7.3) % Eos % (Auto) (0.0-4.3) % Baso % (Auto) (0.0-1.8) % Lymph # (Auto) (1.2-5.4) K/mm3 Osborne # (Auto) (0.0-0.8) K/mm3 Eos # (Auto) (0.0-0.4) K/mm3 Baso # (Auto) (0.0-0.1) K/mm3 Seg Neutrophils % (40.0-70.0) % Seg Neutrophils # (1.8-7.7) K/mm3 PT 13.0 (12.2-14.9) Sec. INR 1.00 (0.87-1.13) D-Dimer 3297.71 H (0-234) ng/mlDDU Sodium (137-145) mmol/L Potassium (3.6-5.0) mmol/L Chloride (98-107) mmol/L Carbon Dioxide (22-30) mmol/L Anion Gap mmol/L BUN (7-17) mg/dL Creatinine (0.6-1.2) mg/dL Estimated GFR ml/min BUN/Creatinine Ratio % Glucose (65-100) mg/dL Calcium (8.4-10.2) mg/dL Magnesium (1.7-2.3) mg/dL Total Creatine Kinase (30-135) units/L Troponin T (0.00-0.029) ng/mL - EKG Data -: EKG Interpreted by Me EKG shows normal: sinus rhythm Rate: normal - EKG Data 02/15/20 21:07 EKG #1 shows a sinus rhythm, tachycardia, left axis deviation, left anterior fascicular block, poor R wave progression, QTC is prolonged, pseudonormalized T waves in the septal lateral leads. This EKG is abnormal. This EKG shows changes when compared to prior EKG. This EKG is not a STEMI. - Radiology Data Radiology results: pending, report reviewed, image reviewed Critical Care Time: Yes Critical care time in (mins) excluding proc time.: 35 Critical care attestation.: If time is entered above; I have spent that time in minutes in the direct care of this critically ill patient, excluding procedure time. ED Disposition Clinical Impression: Accelerated hypertension, Acute hypokalemia, Hypomagnesemia, Metabolic acidosis, Acute chest pain, Hypertensive urgency, malignant, Hypokalemia, Nausea & vomiting, Urinary tract infection Disposition: DC-09 OP ADMIT IP TO THIS HOSP Is pt being admited?: Yes Condition: Serious Heart Score - HEART Score History: Moderately suspicious EKG: Non-specific Age: > 65 Risk factors: > 3 risk factors or hx of atherosclerotic disease Troponin: < normal limit HEART Score: 6 - Critical Actions Critical Actions: 4-6 pts:12-16.6% risk of adverse cardiac event. Should be admitted
--- NOTE | 2020-02-15 20:07 | XRay Report ---
. XR chest 1V ap INDICATION / CLINICAL INFORMATION: Chest Pain. COMPARISON: 12/26/2019 FINDINGS: SUPPORT DEVICES: None. HEART /PULMONARY VASCULATURE: No significant abnormality. LUNGS / PLEURA: No significant pulmonary or pleural abnormality. No pneumothorax. ADDITIONAL FINDINGS: No significant additional findings. IMPRESSION: 1. No acute findings. Signer Name: Faheem Mason MD Signed: 02/15/2020 8:02 PM Workstation Name: [id number]
[2020-02-15 20:27] LABS: Basophils # (Auto) 0.1 K/mm3 (0.0-0.1); Basophils % (Auto) 0.8 % (0.0-1.8); Hematocrit 39.2 % (30.3-42.9); Hemoglobin 13.3 gm/dl (10.1-14.3); Lymphocytes # (Auto) 1.1 K/mm3 (1.2-5.4); Lymphocytes % (Auto) 8.8 % (13.4-35.0); Mean Corpuscular HGB Conc 34 % (30-34); Mean Corpuscular Volume 83 fl (79-97); Monocytes # (Auto) 0.3 K/mm3 (0.0-0.8); Monocytes % (Auto) 2.5 % (0.0-7.3); Red Blood Count 4.73 M/mm3 (3.65-5.03); Red Cell Distribution Width 13.8 % (13.2-15.2)
[2020-02-15 20:31] LABS: Platelet Count 343 K/mm3 (140-440)
[2020-02-15 20:43] LABS: BUN/Creatinine Ratio 21; Blood Urea Nitrogen 17 mg/dL (7-17); Calcium 9.4 mg/dL (8.4-10.2); Hemolysis Index 27
[2020-02-15] MEDS ORDERED: MAGNESIUM SULFATE 2 GM/50 ML BAG IV ONE (21:02)
[2020-02-15] MEDS ORDERED: LIDOCAINE 1%/EPINEPHRINE 1:100,000 VIAL (20 ML) INFILTRATI ONE ×2 (22:15→23:22)
[2020-02-15] MEDS ORDERED: MORPHINE 4 MG/1 ML INJ ONE (22:37)
[2020-02-15] MEDS ORDERED: ONDANSETRON 4 MG/2 ML INJ ONE (22:37)
[2020-02-15] MEDS ORDERED: SODIUM CHLORIDE 0.9% 250ML 250 ML ONE (22:38)
[2020-02-15 23:33] LABS: BUN/Creatinine Ratio 21; Blood Urea Nitrogen 17 mg/dL (7-17); Calcium 8.6 mg/dL (8.4-10.2); Hemolysis Index 1
[2020-02-15] MEDS ORDERED: POTASSIUM CHLORIDE ER 20 MEQ TAB PO ONE (23:39)
[2020-02-15] MEDS: POTASSIUM CHLORIDE 10 MEQ 10 MEQ/100 ML BAG IV SCH (23:59)
--- NOTE | 2020-02-16 00:31 | Cat Scan Report ---
CTA CHEST WITH IV CONTRAST INDICATION: Patient complains of chest pain with tachycardia and hypertension. TECHNIQUE: Axial CT images were obtained through the chest after injection of IV contrast. 3 plane MIP reconstru ctions were produced. All CT scans at this location are performed using CT dose reduction for ALARA b y means of automated exposure control. COMPARISON: CTA 12/16/2019 FINDINGS: Pulmonary Arteries: No pulmonary emboli. Thoracic Aorta: No acute abnormality. Heart: Heart size is normal. No pericardial effusion is relatively stable. Lungs: No acute air space or interstitial disease. Pleura: No pleural effusion. No pneumothorax. Lymph Nodes: No significant adenopathy. Additional Findings: There is diffuse esophageal wall thickening. Skeletal Structures: No significant osseous abnormality. IMPRESSION: 1. No CT evidence for pulmonary embolism. No acute pulmonary or pleural findings. Thoracic aorta is u nremarkable. 2. Stable small pericardial effusion. 3. There is diffuse esophageal wall thickening suggestive of esophagitis. Signer Name: Juan Zepeda MD Signed: 02/16/2020 12:26 AM Workstation Name: [id number]
--- NOTE | 2020-02-16 00:34 | Cat Scan Report ---
CT ABDOMEN AND PELVIS WITH IV CONTRAST INDICATION: Patient complains of nausea and vomiting with weakness.. COMPARISON: CT 11/09/2019. TECHNIQUE: All CT scans at this facility use dose modulation, automated exposure control, iterative reconstructi on or weight based dosing, when appropriate, to reduce radiation dose to as low as reasonably achieva ble. FINDINGS: Lung Bases: No significant abnormality. Skeletal System: No acute abnormality. ABDOMEN: Liver: No significant abnormality. Gallbladder: No significant abnormality. Bile Ducts: No significant abnormality. Pancreas: No significant abnormality. Spleen: There is a stable hypodense lesion in the spleen near the hilum. No acute findings. Adrenals: Diffuse adrenal thickening is again noted. Right Kidney: No significant abnormality. Left Kidney: No significant abnormality. Upper GI tract: No significant abnormality. Lymph Nodes: No significant adenopathy. Aorta: No significant abnormality. Additional Findings: No significant abnormality. PELVIS: Colon: No acute abnormality. Urinary Bladder and Distal Ureters: No significant abnormality. Appendix: No significant abnormality. Lymph Nodes: No significant adenopathy. Additional Findings: None. IMPRESSION: 1. No acute process in the abdomen or pelvis. 2. Incidental findings, as above. Signer Name: Juan Zepeda MD Signed: 02/16/2020 12:30 AM Workstation Name: [id number]
[2020-02-16] MEDS ORDERED: PANTOPRAZOLE 40 MG INJ IV ONE ×2 (00:35→02:05)
[2020-02-16] MEDS ORDERED: ASPIRIN 325 MG TAB PO ONE (00:36)
[2020-02-16 00:46] LABS: Bacteria,Urine 1+ /HPF (Negative); Bilirubin,Urine NEG (Negative); Blood,Urine SM (Negative); Color,Urine Yellow (Yellow); Mucus,Urine FEW /HPF; Urobilinogen,Urine < 2.0 mg/dL (<2.0)
[2020-02-16] MEDS ORDERED: MAGNESIUM SULFATE 4 GM/100 ML BAG IV ONE (00:49)
[2020-02-16] MEDS ORDERED: LACTULOSE 20 GM/30 ML ORAL LIQD PO PRN (00:55)
[2020-02-16] MEDS ORDERED: ALUM-MAG HYDROXIDE-SIMETHICONE 200-200-20MG/5ML ORAL LIQD 30 ML PO PRN (00:55)
[2020-02-16] MEDS ORDERED: traMADol 50 MG TAB PO PRN (00:55)
[2020-02-16] MEDS ORDERED: cefTRIAXone/NS 1 GM/50 ML 1 GM/50 ML BAG IV ONE ×2 (00:56→02:22)
--- NOTE | 2020-02-16 01:05 | History and Physical Report ---
History of Present Illness Date of examination: 02/16/20 Date of admission: 02/16/20 Chief complaint: chest pain Hypertension History of present illness: This is a 69 year old female seen in ED at bedside. patient presents to ED with complaint of cheat pain and elevated blood press. Blood work shows metabolic acidosis. hypokalemia, lactic acidosis, hyperglycemia, hypomagnesemia. patient has past medical history of hypertension, heart disease, CAD, diabetes, seizure disorder and history of malnutrition, hypoglycemia. Patient reports she has a fall couple of days ago with right leg pain but said pain is gone. Per ED record-She recently had a CT angiogram of her chest which was negative for pulmonary embolism/aortic disease. She also recently had a cardiac catheterization, which showed left main patent, LAD proximal, mid stents, diffuse 20 to 30% in-stent restenosis, circumflex patent, OM1, OM 2, OM 3 patent, RCA medium caliber, patent, mild LV dysfunction. Cardiology recommended "to treat with medical management On assessment, patient on room air, 02 sat 100%, BP 161/69, HR 104. Patient denies chest pain, headache, abdominal pain, shortness of breath and n/v ED work up shows Sodium 140, potassium 3.3, 2.7, magnesium 1.2, C02 13, 12, Troponin -negative WBC 11.9, Glucose 287, 335,Cr 0.8 Chest x-ray-no acute finding Past History Past Medical History: CAD, diabetes, hypertension, seizures Past Surgical History: No surgical history Social history: no significant social history Family history: no significant family history Medications and Allergies Allergies Allergy/AdvReac Type Severity Reaction Status Date / Time Sulfa (Sulfonamide Allergy Angioedema Verified 03/25/19 01:04 Antibiotics) Home Medications Medication Instructions Recorded Confirmed Last Taken Type Ergocalciferol (Vitamin D2) 50,000 unit PO QWEEK 11/12/19 12/26/19 Unknown History [Vitamin D2] Aspirin [Adult Aspirin] 81 mg PO DAILY #100 12/18/19 12/26/19 11/10/19 Rx AtorvaSTATin [Lipitor] 40 mg PO QHS #30 12/18/19 12/26/19 Unknown Rx Lacosamide [Vimpat] 200 mg PO BID #60 12/18/19 12/26/19 Unknown Rx Metformin HCl [metFORMIN] 1,000 mg PO BID 30 Days #60 12/18/19 12/26/19 Unknown Rx Metoprolol [Lopressor TAB] 50 mg PO BID 30 Days #60 tablet 12/18/19 12/26/19 Unknown Rx Potassium Chloride [K-Dur] 20 meq PO QDAY #30 12/18/19 12/26/19 11/10/19 Rx Sertraline [Zoloft] 150 mg PO QDAY #30 12/18/19 12/26/19 Unknown Rx levETIRAcetam [Keppra TAB] 750 mg PO BID 30 Days #60 12/18/19 12/26/19 Unknown Rx lisinopriL [Zestril TAB] 5 mg PO QDAY 30 Days #30 12/18/19 12/26/19 Unknown Rx Active Meds: Active Medications Al Hydrox/Mg Hydrox/Simethicone (Alum-Mag Hydrox-Simeth 637-213-42sm/5ml) 15 ml PO Q4H PRN PRN Reason: Indigestion Atorvastatin Calcium (Lipitor) 40 mg PO QHS SOL Potassium Chloride (Kcl 10meq/100ml) 10 meq in 100 mls @ 100 mls/hr IV Q1H SOL Stop: 02/16/20 01:59 Last Admin: 02/15/20 23:59 Dose: 100 mls/hr Documented by: Magnesium Sulfate (Magnesium Sulfate 4gm/100ml) 4 gm in 100 mls @ 25 mls/hr IV ONCE ONE Stop: 02/16/20 04:48 Ceftriaxone Sodium (Rocephin/Ns 1 Gm/50 Ml) 1 gm in 50 mls @ 100 mls/hr IV ONCE ONE; Protocol Stop: 02/16/20 01:25 Insulin Human Lispro (Humalog) 0 unit SUB-Q ACHS SOL; Protocol Lactulose (Cephulac) 20 gm PO QHS PRN PRN Reason: Constipation Levetiracetam (Keppra) 750 mg PO BID SOL Lisinopril (Zestril) 5 mg PO ONCE ONE Stop: 02/16/20 00:56 Metoprolol Tartrate (Metoprolol) 50 mg PO ONCE ONE Stop: 02/16/20 00:56 Nitroglycerin (Nitrostat) 0.4 mg SL .Q5MIN PRN PRN Reason: Chest Pain Ondansetron HCl (Zofran) 4 mg IV Q4H PRN PRN Reason: Nausea And Vomiting Potassium Chloride (K-Dur) 40 meq PO ONCE ONE Stop: 02/16/20 02:01 Sertraline HCl (Zoloft) 150 mg PO ONCE ONE Stop: 02/16/20 00:56 Tramadol HCl (Ultram) 50 mg PO Q4H PRN PRN Reason: Pain, Moderate (4-6) Trazodone HCl (Desyrel) 50 mg PO QHS PRN PRN Reason: Insomnia Review of Systems Constitutional: no weight gain, no fever Ears, nose, mouth and throat: no decreased hearing, no epistaxis Breasts: no swelling Cardiovascular: chest pain, high blood pressure Respiratory: no hemoptysis, no respiratory infections, no home oxygen Gastrointestinal: no hematemesis Genitourinary Female: no hematuria Menstruation: no currently menstrual Rectal: no pain Musculoskeletal: no shooting arm pain, no arm numbness/tingling Neurological: no parathesias Psychiatric: anxiety, no suicidal ideation, no disorientation, no hallucinations Endocrine: high blood sugars, fatigue Hematologic/Lymphatic: no lymphedema Allergic/Immunologic: no anaphylaxis Exam - Constitutional Vitals: Temp Pulse Resp BP Pulse Ox 99 H 14 162/64 100 02/16/20 00:45 02/16/20 00:45 02/16/20 00:45 02/16/20 00:45 General appearance: Present: mild distress, well-nourished - EENT Eyes: Present: PERRL ENT: hearing intact, clear oral mucosa - Neck Neck: Present: supple, normal ROM - Respiratory Respiratory effort: normal Respiratory: bilateral: CTA - Cardiovascular Heart rate: 98 Heart Sounds: Present: S1 & S2. Absent: rub, click Details: elevated blood pressure - Extremities Extremities: pulses symmetrical, No edema Peripheral Pulses: within normal limits - Abdominal General gastrointestinal: Present: soft, non-tender, non-distended, normal bowel sounds Female genitourinary: Present: normal - Integumentary Integumentary: Present: clear, warm, dry - Musculoskeletal Musculoskeletal: gait normal, strength equal bilaterally - Psychiatric Psychiatric: appropriate mood/affect, intact judgment & insight - Neurologic Neurologic: CNII-XII intact, moves all extremities - Allied Health Allied health notes reviewed: nursing HEART Score - HEART Score EKG: Non-specific Age: > 65 Risk factors: > 3 risk factors or hx of atherosclerotic disease Troponin: Troponin T < 0.010 ng/mL (0.00-0.029) 02/15/20 22:55 Troponin: < normal limit - Critical Actions Critical Actions: 4-6 pts:12-16.6% risk of adverse cardiac event. Should be admitted Results - Labs CBC & Chem 7: 02/15/20 20:10 02/15/20 23:14 Labs: Abnormal lab results 02/15/20 02/15/20 02/15/20 Range/Units 20:10 20:10 20:10 WBC 11.9 H (4.5-11.0) K/mm3 Lymph % (Auto) 8.8 L (13.4-35.0) % Lymph # (Auto) 1.1 L (1.2-5.4) K/mm3 Seg Neutrophils % 87.9 H (40.0-70.0) % Seg Neutrophils # 10.5 H (1.8-7.7) K/mm3 D-Dimer (0-234) ng/mlDDU VBG pH (7.320-7.420) Potassium 3.3 L (3.6-5.0) mmol/L Carbon Dioxide 13 L (22-30) mmol/L Glucose 287 H (65-100) mg/dL Lactic Acid (0.7-2.0) mmol/L Magnesium 1.20 L (1.7-2.3) mg/dL Total Creatine Kinase 153 H (30-135) units/L Urine WBC (Auto) (0.0-6.0) /HPF Salicylates (2.8-20.0) mg/dL Acetaminophen (10.0-30.0) ug/mL 02/15/20 02/15/20 02/15/20 Range/Units 20:10 21:37 21:37 WBC (4.5-11.0) K/mm3 Lymph % (Auto) (13.4-35.0) % Lymph # (Auto) (1.2-5.4) K/mm3 Seg Neutrophils % (40.0-70.0) % Seg Neutrophils # (1.8-7.7) K/mm3 D-Dimer 3297.71 H (0-234) ng/mlDDU VBG pH (7.320-7.420) Potassium (3.6-5.0) mmol/L Carbon Dioxide (22-30) mmol/L Glucose (65-100) mg/dL Lactic Acid 2.50 H* (0.7-2.0) mmol/L Magnesium (1.7-2.3) mg/dL Total Creatine Kinase (30-135) units/L Urine WBC (Auto) (0.0-6.0) /HPF Salicylates < 0.3 L (2.8-20.0) mg/dL Acetaminophen (10.0-30.0) ug/mL 02/15/20 02/15/20 02/15/20 Range/Units 21:37 21:37 23:14 WBC (4.5-11.0) K/mm3 Lymph % (Auto) (13.4-35.0) % Lymph # (Auto) (1.2-5.4) K/mm3 Seg Neutrophils % (40.0-70.0) % Seg Neutrophils # (1.8-7.7) K/mm3 D-Dimer (0-234) ng/mlDDU VBG pH 7.297 L (7.320-7.420) Potassium 2.7 L* (3.6-5.0) mmol/L Carbon Dioxide 12 L (22-30) mmol/L Glucose 335 H (65-100) mg/dL Lactic Acid (0.7-2.0) mmol/L Magnesium (1.7-2.3) mg/dL Total Creatine Kinase (30-135) units/L Urine WBC (Auto) (0.0-6.0) /HPF Salicylates (2.8-20.0) mg/dL Acetaminophen 5.0 L (10.0-30.0) ug/mL 02/15/20 Range/Units Unknown WBC (4.5-11.0) K/mm3 Lymph % (Auto) (13.4-35.0) % Lymph # (Auto) (1.2-5.4) K/mm3 Seg Neutrophils % (40.0-70.0) % Seg Neutrophils # (1.8-7.7) K/mm3 D-Dimer (0-234) ng/mlDDU VBG pH (7.320-7.420) Potassium (3.6-5.0) mmol/L Carbon Dioxide (22-30) mmol/L Glucose (65-100) mg/dL Lactic Acid (0.7-2.0) mmol/L Magnesium (1.7-2.3) mg/dL Total Creatine Kinase (30-135) units/L Urine WBC (Auto) 133.0 H (0.0-6.0) /HPF Salicylates (2.8-20.0) mg/dL Acetaminophen (10.0-30.0) ug/mL Assessment and Plan - Patient Problems (1) Hypertensive emergency Current Visit: No Status: Acute Plan to address problem: resume home bp med PRN lab Labetolol Chest x-ray- no acute finding ECHO-f/u with result (2) Acute chest pain Current Visit: Yes Status: Acute Plan to address problem: Most likely 2/2 to elevated blood pressure troponin negative Chest x-ray and CTA of the chest-no acute finding 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 and 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 consult sublingual nitro PRN for chest pain (3) Acute hypokalemia Current Visit: Yes Status: Acute Plan to address problem: Replete potassium Am BMP-replace potassium PRN (4) Hypomagnesemia Current Visit: Yes Status: Acute Plan to address problem: replace magnesium Monitor electrolyte level (5) Seizure disorder Current Visit: No Status: Chronic Plan to address problem: Hx of seizures Resume home anti-epileptic (6) Diabetes Current Visit: No Status: Chronic Qualifiers: Diabetes mellitus type: type 2 Plan to address problem: Monitor blood sugar with SSI Check HGA1C Will resume metformin at discharge (7) Metabolic acidosis Current Visit: Yes Status: Acute Plan to address problem: 1 amp bicarb IV push Start IV hydration with NS Monitor BMP (8) DVT prophylaxis Current Visit: Yes Status: Acute Plan to address problem: lovenox
[2020-02-16] MEDS: POTASSIUM CHLORIDE 10 MEQ 10 MEQ/100 ML BAG IV SCH ×5 (01:06→14:53)
[2020-02-16] MEDS ORDERED: MAGNESIUM SULFATE 2 GM/50 ML BAG IV ONE (01:23)
[2020-02-16] MEDS ORDERED: SODIUM CHLORIDE 0.9% 1000 ML 1,000 ML IV SCH (01:30)
[2020-02-16] MEDS ORDERED: LISINOPRIL 5 MG TAB PO ONE (01:45)
[2020-02-16] MEDS ORDERED: SERTRALINE 100 MG TAB PO ONE (01:45)
[2020-02-16] MEDS ORDERED: METOPROLOL TARTRATE 50 MG TAB PO ONE (01:45)
[2020-02-16] MEDS ORDERED: SODIUM BICARB 8.4% 50 MEQ/50 ML SYRINGE IV ONE ×2 (01:49→02:06)
[2020-02-16] MEDS ORDERED: INSULIN LISPRO 100 UNIT/ML VIAL 3 mL SUB-Q ONE ×4 (01:51→03:18)
[2020-02-16] MEDS ORDERED: POTASSIUM CHLORIDE ER 20 MEQ TAB PO ONE ×3 (02:00→15:00)
[2020-02-16] MEDS ORDERED: cefTRIAXone/NS 2 GM/100 ML 2 GM/100 ML BAG IV ONE (02:04)
[2020-02-16] MEDS ORDERED: LISINOPRIL 5 MG TAB ONE (02:04)
[2020-02-16] MEDS ORDERED: ASPIRIN 325 MG TAB ONE (02:04)
[2020-02-16] MEDS ORDERED: METOPROLOL TARTRATE 50 MG TAB ONE (02:04)
[2020-02-16] MEDS ORDERED: SERTRALINE 50 MG TAB ONE (02:10)
[2020-02-16] MEDS ORDERED: POTASSIUM CHLORIDE 10 MEQ 10 MEQ/100 ML BAG IV ONE (02:48)
[2020-02-16] MEDS: METOPROLOL TARTRATE 50 MG TAB PO SCH ×2 (08:38→17:11)
[2020-02-16] MEDS: INSULIN LISPRO 100 UNIT/ML VIAL 3 mL SUB-Q SCH ×4 (08:39→22:15)
[2020-02-16] MEDS: ENOXAPARIN 40 MG/0.4 ML INJ SUB-Q SCH (10:26)
[2020-02-16] MEDS: levETIRAcetam 500 MG TAB PO SCH ×2 (10:26→22:37)
[2020-02-16] MEDS: LACOSAMIDE 100 MG TAB PO SCH ×2 (10:26→22:37)
[2020-02-16] MEDS: LISINOPRIL 5 MG TAB PO SCH (10:26)
[2020-02-16 11:40] LABS: Calcium 9.4 mg/dL (8.4-10.2)
--- NOTE | 2020-02-16 12:09 | Event Note ---
Date: 02/16/20 Patient was seen and evaluated this morning, patient was complaining nausea. CT abdomen pelvis showed esophagitis and I put the patient on pantoprazole. Patient had chest pain but there was no troponin done and I ordered a troponin. Patient has UTI ordered ceftriaxone. Patient has hypokalemia and hypomagnesemia and repleted. Sliding scale insulin.
[2020-02-16] MEDS: PANTOPRAZOLE 40 MG INJ IV SCH ×2 (12:53→22:37)
[2020-02-16 15:30] LABS: Alanine Aminotransferase 7 units/L (7-56); Albumin 3.5 g/dL (3.9-5)
[2020-02-16 15:33] LABS: Bilirubin,Direct < 0.2 mg/dL (0-0.2)
[2020-02-16] MEDS: cefTRIAXone/NS 1 GM/50 ML 1 GM/50 ML BAG IV SCH (22:36)
[2020-02-16] MEDS: ONDANSETRON 4 MG/2 ML INJ IV PRN (22:40)
[2020-02-16] MEDS ORDERED: cloNIDine 0.1 MG TAB ONE (23:44)
[2020-02-17] MEDS ORDERED: cloNIDine 0.1 MG TAB PO ONE (00:15)
[2020-02-17 04:50] LABS: Basophils # (Auto) 0.1 K/mm3 (0.0-0.1); Basophils % (Auto) 1.1 % (0.0-1.8); Eosinophils % (Auto) 0.1 % (0.0-4.3); Hemoglobin 10.4 gm/dl (10.1-14.3); Lymphocytes # (Auto) 1.2 K/mm3 (1.2-5.4); Lymphocytes % (Auto) 10.4 % (13.4-35.0); Mean Corpuscular HGB Conc 33 % (30-34); Mean Corpuscular Volume 85 fl (79-97); Monocytes # (Auto) 0.6 K/mm3 (0.0-0.8); Monocytes % (Auto) 4.8 % (0.0-7.3); Platelet Count 318 K/mm3 (140-440); Red Blood Count 3.79 M/mm3 (3.65-5.03); Red Cell Distribution Width 14.5 % (13.2-15.2)
[2020-02-17 05:09] LABS: Calcium 9.2 mg/dL (8.4-10.2)
[2020-02-17] MEDS: POTASSIUM CHLORIDE 10 MEQ 10 MEQ/100 ML BAG IV SCH (07:11)
[2020-02-17] MEDS: INSULIN LISPRO 100 UNIT/ML VIAL 3 mL SUB-Q SCH ×4 (08:29→22:43)
[2020-02-17] MEDS: ONDANSETRON 4 MG/2 ML INJ IV PRN (08:33)
--- NOTE | 2020-02-17 09:20 | Progress Note ---
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 nitro PRN for chest pain (3) Acute hypokalemia Current Visit: Yes Status: Acute Plan to address problem: Replete potassium Am BMP-replace potassium PRN (4) Hypomagnesemia Current Visit: Yes Status: Acute Plan to address problem: replace magnesium Monitor electrolyte level (5) Seizure disorder Current Visit: No Status: Chronic Plan to address problem: Hx of seizures Resume home anti-epileptic (6) Diabetes Current Visit: No Status: Chronic Qualifiers: Diabetes mellitus type: type 2 Plan to address problem: Monitor blood sugar with SSI Check HGA1C Will resume metformin at discharge (7) Metabolic acidosis Current Visit: Yes Status: Acute Plan to address problem: 1 amp bicarb IV push Start IV hydration with NS Monitor BMP (8) DVT prophylaxis Current Visit: Yes Status: Acute Plan to address problem: lovenox 02/17/2020 -Blood pressure is well controlled and continue with current medication regimen. Hypokalemia and hypomagnesemia was corrected. We will continue sliding scale insulin and Lantus for diabetes, her hemoglobin A1c is 7.0. Chest pain resolved. Troponin was negative. Patient is on IV ceftriaxone for UTI. Will follow culture result. History Interval history: Patient was seen and evaluated this morning Patient states she is not feeling good Hospitalist Physical - Physical exam Narrative exam: Not in cardiopulmonary distress. The patient appeared well nourished and normally developed. Vital signs as documented. Head exam is unremarkable. No scleral icterus . Neck is without jugular venous distension, thyromegaly, or carotid bruits. Lungs are clear to auscultation. Cardiac exam reveals regular rate and Rhythm. Abdominal exam reveals normal bowel sounds, nontender, no organomegaly. Extremities are nonedematous and both femoral and pedal pulses are normal. HOME HEALTH AIDE: Alert and oriented 3. No focal weakness. - Constitutional Vitals: Temp Pulse Resp BP Pulse Ox 98.0 F 84 18 108/59 99 02/17/20 05:03 02/17/20 05:03 02/17/20 05:03 02/17/20 05:03 02/17/20 05:03 General appearance: Present: mild distress, well-nourished HEART Score - HEART Score EKG: Non-specific Age: > 65 Risk factors: > 3 risk factors or hx of atherosclerotic disease Troponin: Troponin T < 0.010 ng/mL (0.00-0.029) 02/16/20 14:54 Troponin: < normal limit - Critical Actions Critical Actions: 4-6 pts:12-16.6% risk of adverse cardiac event. Should be admitted Results - Labs CBC & Chem 7: 02/17/20 04:14 02/17/20 04:14 Labs: Laboratory Last Values WBC 11.8 K/mm3 (4.5-11.0) H 02/17/20 04:14 RBC 3.79 M/mm3 (3.65-5.03) 02/17/20 04:14 Hgb 10.4 gm/dl (10.1-14.3) 02/17/20 04:14 Hct 32.0 % (30.3-42.9) D 02/17/20 04:14 MCV 85 fl (79-97) 02/17/20 04:14 MCH 28 pg (28-32) 02/17/20 04:14 MCHC 33 % (30-34) 02/17/20 04:14 RDW 14.5 % (13.2-15.2) 02/17/20 04:14 Plt Count 318 K/mm3 (140-440) 02/17/20 04:14 Lymph % (Auto) 10.4 % (13.4-35.0) L 02/17/20 04:14 [place] % (Auto) 4.8 % (0.0-7.3) 02/17/20 04:14 Eos % (Auto) 0.1 % (0.0-4.3) 02/17/20 04:14 Baso % (Auto) 1.1 % (0.0-1.8) 02/17/20 04:14 Lymph # (Auto) 1.2 K/mm3 (1.2-5.4) 02/17/20 04:14 [place] # (Auto) 0.6 K/mm3 (0.0-0.8) 02/17/20 04:14 Eos # (Auto) 0.0 K/mm3 (0.0-0.4) 02/17/20 04:14 Baso # (Auto) 0.1 K/mm3 (0.0-0.1) 02/17/20 04:14 Seg Neutrophils % 83.6 % (40.0-70.0) H 02/17/20 04:14 Seg Neutrophils # 9.9 K/mm3 (1.8-7.7) H 02/17/20 04:14 PT 13.0 Sec. (12.2-14.9) 02/15/20 20:10 INR 1.00 (0.87-1.13) 02/15/20 20:10 D-Dimer 3297.71 ng/mlDDU (0-234) H 02/15/20 20:10 VBG pH 7.297 (7.320-7.420) L 02/15/20 21:37 Sodium 143 mmol/L (137-145) 02/17/20 04:14 Potassium 4.1 mmol/L (3.6-5.0) D 02/17/20 04:14 Chloride 104.4 mmol/L (98-107) 02/17/20 04:14 Carbon Dioxide 18 mmol/L (22-30) L 02/17/20 04:14 Anion Gap 25 mmol/L 02/17/20 04:14 BUN 24 mg/dL (7-17) H 02/17/20 04:14 Creatinine 1.1 mg/dL (0.6-1.2) 02/17/20 04:14 Estimated GFR 60 ml/min 02/17/20 04:14 BUN/Creatinine Ratio 22 % 02/17/20 04:14 Glucose 310 mg/dL (65-100) H 02/17/20 04:14 POC Glucose 270 mg/dL (70-105) H 02/17/20 08:06 Hemoglobin A1c 7.0 % (4-6) H 02/16/20 03:00 Lactic Acid 1.60 mmol/L (0.7-2.0) 02/15/20 22:55 Calcium 9.2 mg/dL (8.4-10.2) 02/17/20 04:14 Magnesium 1.70 mg/dL (1.7-2.3) 02/16/20 10:41 Total Bilirubin 0.20 mg/dL (0.1-1.2) 02/16/20 14:54 Direct Bilirubin < 0.2 mg/dL (0-0.2) 02/16/20 14:54 Indirect Bilirubin 0.0 mg/dL 02/16/20 14:54 AST 12 units/L (5-40) 02/16/20 14:54 ALT 7 units/L (7-56) 02/16/20 14:54 Alkaline Phosphatase 113 units/L (35-129) 02/16/20 14:54 Total Creatine Kinase 153 units/L (30-135) H 02/15/20 20:10 Troponin T < 0.010 ng/mL (0.00-0.029) 02/16/20 14:54 Total Protein 7.6 g/dL (6.3-8.2) 02/16/20 14:54 Albumin 3.5 g/dL (3.9-5) L 02/16/20 14:54 Albumin/Globulin Ratio 0.9 % 02/16/20 14:54 Urine Color Yellow (Yellow) 02/15/20 Unknown Urine Turbidity Cloudy (Clear) 02/15/20 Unknown Urine pH 7.0 (5.0-7.0) 02/15/20 Unknown Ur Specific [place] 1.025 (1.003-1.030) 02/15/20 Unknown Urine Protein 100 mg/dl mg/dL (Negative) 02/15/20 Unknown Urine Glucose (UA) 150 mg/dL (Negative) 02/15/20 Unknown Urine Ketones 80 mg/dL (Negative) 02/15/20 Unknown Urine Blood Sm (Negative) 02/15/20 Unknown Urine Nitrite Neg (Negative) 02/15/20 Unknown Urine Bilirubin Neg (Negative) 02/15/20 Unknown Urine Urobilinogen < 2.0 mg/dL (<2.0) 02/15/20 Unknown Ur Leukocyte Esterase Mod (Negative) 02/15/20 Unknown Urine WBC (Auto) 133.0 /HPF (0.0-6.0) H 02/15/20 Unknown Urine RBC (Auto) 4.0 /HPF (0.0-6.0) 02/15/20 Unknown U Epithel Cells (Auto) 5.0 /HPF (0-13.0) 02/15/20 Unknown Urine Bacteria (Auto) 1+ /HPF (Negative) 02/15/20 Unknown Urine Mucus Few /HPF 02/15/20 Unknown Urine Yeast (Budding) Few /HPF 02/15/20 Unknown Salicylates < 0.3 mg/dL (2.8-20.0) L 02/15/20 21:37 Acetaminophen 5.0 ug/mL (10.0-30.0) L 02/15/20 21:37 Microbiology: Microbiology 02/15/20 21:41 Peripheral/Venous Blood Culture - Preliminary NO GROWTH AFTER 24 HOURS 02/15/20 21:37 Peripheral/Venous Blood Culture - Preliminary NO GROWTH AFTER 24 HOURS [place]/IV: Voiding Method Toilet IV Catheter Type [Right INT / Saline Lock External Jugular] Active Medications - Current Medications Current Medications: Generic Name Dose Route Start Last Admin Trade Name Freq PRN Reason Stop Dose Admin Al Hydrox/Mg Hydrox/Simethicone 15 ml 02/16/20 00:55 Alum-Mag Hydrox-Simeth 341-518-61cx/5ml PO Q4H PRN Indigestion Atorvastatin Calcium 40 mg 02/16/20 22:00 02/16/20 22:37 Lipitor PO 40 mg QHS SOL Administration Enoxaparin Sodium 40 mg 02/16/20 10:00 02/16/20 10:26 Enoxaparin SUB-Q 40 mg QDAY SOL Administration Protocol Sodium Chloride 1,000 mls @ 75 mls/hr 02/16/20 01:30 Nacl 0.9% 1000 Ml IV DIRECT SOL Ceftriaxone Sodium 1 gm in 50 mls @ 100 mls/hr 02/16/20 12:00 02/16/20 22:36 Rocephin/Ns 1 Gm/50 Ml IV 100 mls/hr Q24HR SOL Administration Protocol Insulin Human Lispro 0 unit 02/16/20 07:30 02/17/20 08:29 Humalog SUB-Q 3 unit ACHS SOL Administration Protocol Lacosamide 200 mg 02/16/20 10:00 02/16/20 22:37 Vimpat PO 200 mg Q12HR SOL Administration Lactulose 20 gm 02/16/20 00:55 Cephulac PO QHS PRN Constipation Levetiracetam 750 mg 02/16/20 10:00 02/16/20 22:37 Keppra PO 750 mg BID SOL Administration Lisinopril 5 mg 02/16/20 10:00 02/16/20 10:26 Zestril PO 5 mg QDAY SOL Administration Metoprolol Tartrate 50 mg 02/16/20 08:00 02/16/20 17:11 Metoprolol PO 50 mg BID@0800,1700 SOL Administration Nitroglycerin 0.4 mg 02/15/20 19:59 Nitrostat SL .Q5MIN PRN Chest Pain Ondansetron HCl 4 mg 02/16/20 00:55 02/17/20 08:33 Zofran IV 4 mg Q4H PRN Administration Nausea And Vomiting Pantoprazole Sodium 40 mg 02/16/20 12:00 02/16/20 22:37 Protonix IV 40 mg BID SOL Administration Tramadol HCl 50 mg 02/16/20 00:55 Ultram PO Q4H PRN Pain, Moderate (4-6) Trazodone HCl 50 mg 02/16/20 00:55 Desyrel PO QHS PRN Insomnia
[2020-02-17] MEDS: LISINOPRIL 5 MG TAB PO SCH (10:13)
[2020-02-17] MEDS: levETIRAcetam 500 MG TAB PO SCH ×2 (10:13→22:36)
[2020-02-17] MEDS: LACOSAMIDE 100 MG TAB PO SCH ×2 (10:13→22:35)
[2020-02-17] MEDS: METOPROLOL TARTRATE 50 MG TAB PO SCH ×2 (10:14→17:20)
[2020-02-17] MEDS: ENOXAPARIN 40 MG/0.4 ML INJ SUB-Q SCH (10:14)
[2020-02-17] MEDS: PANTOPRAZOLE 40 MG INJ IV SCH ×2 (10:14→22:37)
[2020-02-17] MEDS: cefTRIAXone/NS 1 GM/50 ML 1 GM/50 ML BAG IV SCH (10:14)
[2020-02-17] MEDS: traZODone 50 MG TAB PO PRN (22:37)
[2020-02-18 08:17] LABS: Alanine Aminotransferase 8 units/L (7-56); Albumin 3.5 g/dL (3.9-5); BUN/Creatinine Ratio 28; Blood Urea Nitrogen 25 mg/dL (7-17); Calcium 9.5 mg/dL (8.4-10.2); Hemolysis Index 9
[2020-02-18] MEDS ORDERED: INSULIN GLARGINE 100 UNITS/ML SUB-Q ONE (09:56)
--- NOTE | 2020-02-18 09:58 | Progress Note ---
Assessment and Plan Assessment and plan: (1) Hypertensive emergency Current Visit: No Status: Acute Plan to address problem: resume home bp med PRN lab Labetolol Chest x-ray- no acute finding ECHO-f/u with result (2) Acute chest pain Current Visit: Yes Status: Acute Plan to address problem: Most likely 2/2 to elevated blood pressure troponin negative Chest x-ray and CTA of the chest-no acute finding ECHO and delphi developer consult sublingual nitro PRN for chest pain (3) Acute hypokalemia Current Visit: Yes Status: Acute Plan to address problem: Replete potassium Am BMP-replace potassium PRN (4) Hypomagnesemia Current Visit: Yes Status: Acute Plan to address problem: replace magnesium Monitor electrolyte level (5) Seizure disorder Current Visit: No Status: Chronic Plan to address problem: Hx of seizures Resume home anti-epileptic (6) Diabetes Current Visit: No Status: Chronic Qualifiers: Diabetes mellitus type: type 2 Plan to address problem: Monitor blood sugar with SSI Check HGA1C Will resume metformin at discharge (7) Metabolic acidosis Current Visit: Yes Status: Acute Plan to address problem: 1 amp bicarb IV push Start IV hydration with NS Monitor BMP (8) DVT prophylaxis Current Visit: Yes Status: Acute Plan to address problem: lovenox 02/17/2020 -Blood pressure is well controlled and continue with current medication regimen. Hypokalemia and hypomagnesemia was corrected. We will continue sliding scale insulin and Lantus for diabetes, her hemoglobin A1c is 7.0. Chest pain resolved. Troponin was negative. Patient is on IV ceftriaxone for UTI. Will follow culture result. 02/18/2020 -Blood pressure is uncontrolled and I increase lisinopril from 5 to 20 mg, continue Toprol 50 mg p.o. twice daily, I added hydralazine 100 mg p.o. 3 times daily. We will continue monitor blood pressure and adjust as needed. Patient is on IV IV ceftriaxone for UTI. Will follow the culture result. Blood sugar is uncontrolled and I added Lantus 20 units now and 15 units of Lantus nightly, and 5 units of AC humalog insulin. History Interval history: Patient was seen and evaluated this morning Patient states she is not feeling good, but she denied specific complaints like chest pain, shortness of breath or any pain anywhere else. Hospitalist Physical - Physical exam Narrative exam: Not in cardiopulmonary distress. The patient appeared well nourished and normally developed. Vital signs as documented. Head exam is unremarkable. No scleral icterus . Neck is without jugular venous distension, thyromegaly, or carotid bruits. Lungs are clear to auscultation. Cardiac exam reveals regular rate and Rhythm. Abdominal exam reveals normal bowel sounds, nontender, no organomegaly. Extremities are nonedematous and both femoral and pedal pulses are normal. WEIGHT LOSS PHYSICIAN: Alert and oriented 3. No focal weakness. - Constitutional Vitals: Temp Pulse Resp BP Pulse Ox 98.6 F 87 18 194/87 100 02/18/20 08:33 02/18/20 04:51 02/18/20 08:33 02/18/20 08:33 02/18/20 04:51 General appearance: Present: mild distress, well-nourished HEART Score - HEART Score EKG: Non-specific Age: > 65 Risk factors: > 3 risk factors or hx of atherosclerotic disease Troponin: Troponin T < 0.010 ng/mL (0.00-0.029) 02/16/20 14:54 Troponin: < normal limit - Critical Actions Critical Actions: 4-6 pts:12-16.6% risk of adverse cardiac event. Should be admitted Results - Labs CBC & Chem 7: 02/17/20 04:14 02/18/20 07:18 Labs: Laboratory Last Values WBC 11.8 K/mm3 (4.5-11.0) H 02/17/20 04:14 RBC 3.79 M/mm3 (3.65-5.03) 02/17/20 04:14 Hgb 10.4 gm/dl (10.1-14.3) 02/17/20 04:14 Hct 32.0 % (30.3-42.9) D 02/17/20 04:14 MCV 85 fl (79-97) 02/17/20 04:14 MCH 28 pg (28-32) 02/17/20 04:14 MCHC 33 % (30-34) 02/17/20 04:14 RDW 14.5 % (13.2-15.2) 02/17/20 04:14 Plt Count 318 K/mm3 (140-440) 02/17/20 04:14 Lymph % (Auto) 10.4 % (13.4-35.0) L 02/17/20 04:14 [place] % (Auto) 4.8 % (0.0-7.3) 02/17/20 04:14 Eos % (Auto) 0.1 % (0.0-4.3) 02/17/20 04:14 Baso % (Auto) 1.1 % (0.0-1.8) 02/17/20 04:14 Lymph # (Auto) 1.2 K/mm3 (1.2-5.4) 02/17/20 04:14 [place] # (Auto) 0.6 K/mm3 (0.0-0.8) 02/17/20 04:14 Eos # (Auto) 0.0 K/mm3 (0.0-0.4) 02/17/20 04:14 Baso # (Auto) 0.1 K/mm3 (0.0-0.1) 02/17/20 04:14 Seg Neutrophils % 83.6 % (40.0-70.0) H 02/17/20 04:14 Seg Neutrophils # 9.9 K/mm3 (1.8-7.7) H 02/17/20 04:14 PT 13.0 Sec. (12.2-14.9) 02/15/20 20:10 INR 1.00 (0.87-1.13) 02/15/20 20:10 D-Dimer 3297.71 ng/mlDDU (0-234) H 02/15/20 20:10 VBG pH 7.297 (7.320-7.420) L 02/15/20 21:37 Sodium 141 mmol/L (137-145) 02/18/20 07:18 Potassium 3.9 mmol/L (3.6-5.0) 02/18/20 07:18 Chloride 102.6 mmol/L (98-107) 02/18/20 07:18 Carbon Dioxide 21 mmol/L (22-30) L 02/18/20 07:18 Anion Gap 21 mmol/L 02/18/20 07:18 BUN 25 mg/dL (7-17) H 02/18/20 07:18 Creatinine 0.9 mg/dL (0.6-1.2) 02/18/20 07:18 Estimated GFR > 60 ml/min 02/18/20 07:18 BUN/Creatinine Ratio 28 % 02/18/20 07:18 Glucose 293 mg/dL (65-100) H 02/18/20 07:18 POC Glucose 318 mg/dL (70-105) H 02/17/20 22:42 Hemoglobin A1c 7.0 % (4-6) H 02/16/20 03:00 Lactic Acid 1.60 mmol/L (0.7-2.0) 02/15/20 22:55 Calcium 9.5 mg/dL (8.4-10.2) 02/18/20 07:18 Magnesium 1.70 mg/dL (1.7-2.3) 02/16/20 10:41 Total Bilirubin 0.30 mg/dL (0.1-1.2) 02/18/20 07:18 Direct Bilirubin < 0.2 mg/dL (0-0.2) 02/16/20 14:54 Indirect Bilirubin 0.0 mg/dL 02/16/20 14:54 AST 12 units/L (5-40) 02/18/20 07:18 ALT 8 units/L (7-56) 02/18/20 07:18 Alkaline Phosphatase 124 units/L (35-129) 02/18/20 07:18 Total Creatine Kinase 153 units/L (30-135) H 02/15/20 20:10 Troponin T < 0.010 ng/mL (0.00-0.029) 02/16/20 14:54 Total Protein 7.6 g/dL (6.3-8.2) 02/18/20 07:18 Albumin 3.5 g/dL (3.9-5) L 02/18/20 07:18 Albumin/Globulin Ratio 0.9 % 02/18/20 07:18 Urine Color Yellow (Yellow) 02/15/20 Unknown Urine Turbidity Cloudy (Clear) 02/15/20 Unknown Urine pH 7.0 (5.0-7.0) 02/15/20 Unknown Ur Specific [place] 1.025 (1.003-1.030) 02/15/20 Unknown Urine Protein 100 mg/dl mg/dL (Negative) 02/15/20 Unknown Urine Glucose (UA) 150 mg/dL (Negative) 02/15/20 Unknown Urine Ketones 80 mg/dL (Negative) 02/15/20 Unknown Urine Blood Sm (Negative) 02/15/20 Unknown Urine Nitrite Neg (Negative) 02/15/20 Unknown Urine Bilirubin Neg (Negative) 02/15/20 Unknown Urine Urobilinogen < 2.0 mg/dL (<2.0) 02/15/20 Unknown Ur Leukocyte Esterase Mod (Negative) 02/15/20 Unknown Urine WBC (Auto) 133.0 /HPF (0.0-6.0) H 02/15/20 Unknown Urine RBC (Auto) 4.0 /HPF (0.0-6.0) 02/15/20 Unknown U Epithel Cells (Auto) 5.0 /HPF (0-13.0) 02/15/20 Unknown Urine Bacteria (Auto) 1+ /HPF (Negative) 02/15/20 Unknown Urine Mucus Few /HPF 02/15/20 Unknown Urine Yeast (Budding) Few /HPF 02/15/20 Unknown Salicylates < 0.3 mg/dL (2.8-20.0) L 02/15/20 21:37 Acetaminophen 5.0 ug/mL (10.0-30.0) L 02/15/20 21:37 Microbiology: Microbiology 02/15/20 21:41 Peripheral/Venous Blood Culture - Preliminary NO GROWTH AFTER 48 HOURS 02/15/20 21:37 Peripheral/Venous Blood Culture - Preliminary NO GROWTH AFTER 48 HOURS 02/16/20 Unknown Urine,Clean Catch Urine Culture - Preliminary Dubose/IV: Voiding Method Toilet IV Catheter Type [Right INT / Saline Lock External Jugular] Active Medications - Current Medications Current Medications: Generic Name Dose Route Start Last Admin Trade Name Freq PRN Reason Stop Dose Admin Al Hydrox/Mg Hydrox/Simethicone 15 ml 02/16/20 00:55 Alum-Mag Hydrox-Simeth 530-112-87ly/5ml PO Q4H PRN Indigestion Aspirin 81 mg 02/18/20 10:00 Halfprin Ec PO DAILY [facility] Atorvastatin Calcium 40 mg 02/16/20 22:00 02/17/20 22:37 Lipitor PO 40 mg QHS SOL Administration Atorvastatin Calcium 40 mg 02/18/20 22:00 Lipitor PO QHS [facility] Enoxaparin Sodium 40 mg 02/16/20 10:00 02/17/20 10:14 Enoxaparin SUB-Q 40 mg QDAY SOL Administration Protocol Ceftriaxone Sodium 1 gm in 50 mls @ 100 mls/hr 02/16/20 12:00 02/17/20 10:14 Rocephin/Ns 1 Gm/50 Ml IV 100 mls/hr Q24HR SOL Administration Protocol Insulin Human Lispro 0 unit 02/16/20 07:30 02/17/20 22:43 Humalog SUB-Q 4 unit ACHS SOL Administration Protocol Labetalol HCl 10 mg 02/17/20 12:06 02/18/20 05:19 Labetalol IV 10 mg Q4H PRN Administration SBP >160 Lacosamide 200 mg 02/16/20 10:00 02/17/20 22:35 Vimpat PO 200 mg Q12HR SOL Administration Lactulose 20 gm 02/16/20 00:55 Cephulac PO QHS PRN Constipation Levetiracetam 750 mg 02/16/20 10:00 02/17/20 22:36 Keppra PO 750 mg BID SOL Administration Lisinopril 20 mg 02/18/20 10:00 Zestril PO QDAY SOL Metoprolol Tartrate 50 mg 02/16/20 08:00 02/17/20 17:20 Metoprolol PO 50 mg BID@0800,1700 [facility] Administration Nitroglycerin 0.4 mg 02/15/20 19:59 Nitrostat SL .Q5MIN PRN Chest Pain Ondansetron HCl 4 mg 02/16/20 00:55 02/17/20 08:33 Zofran IV 4 mg Q4H PRN Administration Nausea And Vomiting Pantoprazole Sodium 40 mg 02/16/20 12:00 02/17/20 22:37 Protonix IV 40 mg BID SOL Administration Sertraline HCl 150 mg 02/18/20 10:00 Zoloft PO QDAY SOL Tramadol HCl 50 mg 02/16/20 00:55 Ultram PO Q4H PRN Pain, Moderate (4-6) Trazodone HCl 50 mg 02/16/20 00:55 02/17/20 22:37 Desyrel PO 50 mg QHS PRN Administration Insomnia
[2020-02-18] MEDS ORDERED: LISINOPRIL 20 MG TAB PO SCH (10:00)
[2020-02-18] MEDS ORDERED: METOPROLOL TARTRATE 50 MG TAB PO SCH (10:00)
[2020-02-18] MEDS: PANTOPRAZOLE 40 MG INJ IV SCH (10:07)
[2020-02-18] MEDS: cefTRIAXone/NS 1 GM/50 ML 1 GM/50 ML BAG IV SCH (10:07)
[2020-02-18] MEDS: ENOXAPARIN 40 MG/0.4 ML INJ SUB-Q SCH (10:09)
[2020-02-18] MEDS: METOPROLOL TARTRATE 50 MG TAB PO SCH ×2 (10:09→17:29)
[2020-02-18] MEDS: levETIRAcetam 500 MG TAB PO SCH ×2 (10:09→21:55)
[2020-02-18] MEDS: LACOSAMIDE 100 MG TAB PO SCH ×2 (10:10→21:56)
[2020-02-18] MEDS: SERTRALINE 50 MG TAB PO SCH (10:13)
[2020-02-18] MEDS: hydrALAZINE 100 MG TAB PO SCH ×3 (10:13→21:55)
[2020-02-18] MEDS: LISINOPRIL 20 MG TAB PO SCH (10:14)
[2020-02-18] MEDS: ASPIRIN EC 81 MG TAB PO SCH (10:14)
[2020-02-18] MEDS: INSULIN LISPRO 100 UNIT/ML VIAL 3 mL SUB-Q SCH ×6 (10:15→22:27)
[2020-02-18] MEDS: PANTOPRAZOLE 40 MG TAB PO SCH (17:29)
[2020-02-18] MEDS: traZODone 50 MG TAB PO PRN (21:55)
[2020-02-18] MEDS ORDERED: INSULIN GLARGINE 100 UNITS/ML SUB-Q SCH (22:00)
[2020-02-19 05:44] LABS: BUN/Creatinine Ratio 33; Blood Urea Nitrogen 26 mg/dL (7-17); Calcium 9.1 mg/dL (8.4-10.2); Hemolysis Index 8
[2020-02-19] MEDS ORDERED: POTASSIUM CHLORIDE ER 20 MEQ TAB PO ONE (07:00)
[2020-02-19] MEDS ORDERED: POTASSIUM CHLORIDE 10 MEQ 10 MEQ/100 ML BAG IV ONE (07:00)
[2020-02-19] MEDS: PANTOPRAZOLE 40 MG TAB PO SCH (09:12)
[2020-02-19] MEDS: SERTRALINE 50 MG TAB PO SCH (09:12)
[2020-02-19] MEDS: hydrALAZINE 100 MG TAB PO SCH ×2 (09:12→22:22)
[2020-02-19] MEDS: LISINOPRIL 20 MG TAB PO SCH (09:12)
[2020-02-19] MEDS: METOPROLOL TARTRATE 50 MG TAB PO SCH ×3 (09:12→12:40)
[2020-02-19] MEDS: levETIRAcetam 500 MG TAB PO SCH ×2 (09:12→22:20)
[2020-02-19] MEDS: INSULIN LISPRO 100 UNIT/ML VIAL 3 mL SUB-Q SCH ×4 (09:13→12:38)
[2020-02-19] MEDS: cefTRIAXone/NS 1 GM/50 ML 1 GM/50 ML BAG IV SCH (09:13)
[2020-02-19] MEDS: ENOXAPARIN 40 MG/0.4 ML INJ SUB-Q SCH (09:13)
[2020-02-19] MEDS: ASPIRIN EC 81 MG TAB PO SCH (09:13)
[2020-02-19] MEDS: LACOSAMIDE 100 MG TAB PO SCH ×2 (10:07→22:20)
[2020-02-19 10:32] LABS: BUN/Creatinine Ratio 30; Blood Urea Nitrogen 27 mg/dL (7-17); Calcium 9.5 mg/dL (8.4-10.2); Hemolysis Index 24
--- NOTE | 2020-02-19 15:47 | Cat Scan Report ---
CT HEAD WITHOUT CONTRAST INDICATION / CLINICAL INFORMATION: Change in LOC. TECHNIQUE: Axial imaging performed from the skull apex through the skull base without the use of cont rast. Sagittal and coronal reformatted images. All CT scans at this location are performed using CT dose reduction for ALARA by means of automated exposure control. COMPARISON: 12/26/2019 FINDINGS: CEREBRAL PARENCHYMA: No significant abnormality. No acute territorial infarct. HEMORRHAGE: None. EXTRA-AXIAL SPACES: Normal in size and morphology for the patient's age. VENTRICULAR SYSTEM: Normal in size and morphology for the patient's age. MIDLINE SHIFT OR HERNIATION: None. CEREBELLUM / BRAINSTEM: No significant abnormality. CALVARIUM: No significant abnormality. ORBITS: Normal as visualized. PARANASAL SINUSES / MASTOID AIR CELLS: Normal as visualized. SOFT TISSUES of HEAD: No significant abnormality. ADDITIONAL FINDINGS: None. IMPRESSION: No acute intracranial abnormality. Signer Name: Kingsley Childs Jr, MD Signed: 02/19/2020 3:43 PM Workstation Name: [id number]
[2020-02-19] MEDS ORDERED: DEXTROSE 50% IN WATER (25GM) 50 ML SYRINGE IV ONE (16:53)
[2020-02-19] MEDS ORDERED: SIMPLE SYRUP 15 ML FEEDTUBE PRN ×4 (17:08→18:00)
[2020-02-19] MEDS ORDERED: LIPASE 10,500/PROTEASE 25,000/AMYLASE 43,750 (UNITS) DR CAP FEEDTUBE PRN ×2 (17:08→18:00)
[2020-02-19] MEDS ORDERED: SODIUM BICARBONATE 325 MG TAB FEEDTUBE PRN ×2 (17:08→18:00)
--- NOTE | 2020-02-19 17:11 | Progress Note ---
Assessment and Plan Assessment and plan: --Acute metabolic encephalopathy; Current Visit: No Status: Acute . Plan to address problem: Multifactorial, hypertensive urgency, electrolyte abnormalities, hypoglycemia Supportive care, correct underlying cause CT head without contrast; no acute abnormality noted If symptoms do not improve We may get MRI brain as needed -- Hypertensive emergency Current Visit: No Status: Acute Plan to address problem: resume home bp med PRN lab Labetolol Chest x-ray- no acute finding ECHO-f/u with result -- Acute chest pain Current Visit: Yes Status: Acute Plan to address problem: Most likely 2/2 to elevated blood pressure troponin negative Chest x-ray and CTA of the chest-no acute finding ECHO and dumper bulk system consult sublingual nitro PRN for chest pain -- Acute hypokalemia Current Visit: Yes Status: Acute Plan to address problem: Replete potassium per protocol Monitor electrolytes -- Hypomagnesemia Current Visit: Yes Status: Acute Plan to address problem: replace with magnesium sulfate IV Monitor electrolyte level --History of seizure disorder Current Visit: No Status: Chronic Plan to address problem: Seizure precautions 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 Hypokalemia and hypomagnesemia was corrected. We will continue sliding scale insulin and Lantus for diabetes, her hemoglobin A1c is 7.0. Chest pain resolved. Troponin was negative. Patient is on IV ceftriaxone for UTI. Will follow culture result. 02/18/2020 -Blood pressure is uncontrolled and I increase lisinopril from 5 to 20 mg, continue Toprol 50 mg p.o. twice daily, I added hydralazine 100 mg p.o. 3 times daily. We will continue monitor blood pressure and adjust as needed. Patient is on IV IV ceftriaxone for UTI. Will follow the culture result. Blood sugar is uncontrolled and I added Lantus 20 units now and 15 units of Lantus nightly, and 5 units of AC humalog insulin. 02/19/2020; Blood pressures remain uncontrolled Unable to give oral medications due to patient's noncooperation As per nurse patient is not opening her mouth not taking oral medications or diet Will place Dobbhoff, both for medications and for feeding I spoke with patient's daughter Ms. Huber at [phone] and discussed in detail patient's condition and treatment plan History Interval history: I have seen and examined the patient at the bedside this afternoon Patient's chart and medications reviewed Hospitalist Physical - Constitutional Vitals: Temp Pulse Resp BP Pulse Ox 98.0 F 95 H 20 185/100 99 02/19/20 07:54 02/19/20 14:00 02/19/20 07:54 02/19/20 12:05 02/19/20 07:54 General appearance: Present: mild distress, well-nourished, other (Very minimally communicative) - EENT Eyes: Present: PERRL, EOM intact - Neck Neck: Present: supple - Respiratory Respiratory effort: normal Respiratory: bilateral: diminished, negative: rales, rhonchi, wheezing - Cardiovascular Rhythm: regular Heart Sounds: Present: S1 & S2 - Extremities Extremities: no ischemia, No edema - Abdominal General gastrointestinal: soft, non-tender, non-distended, normal bowel sounds - Integumentary Integumentary: Present: clear, warm - Psychiatric Psychiatric: other (Noncommunicative lethargic) - Neurologic Neurologic: moves all extremities HEART Score - HEART Score EKG: Non-specific Age: > 65 Risk factors: > 3 risk factors or hx of atherosclerotic disease Troponin: Troponin T < 0.010 ng/mL (0.00-0.029) 02/16/20 14:54 Troponin: < normal limit - Critical Actions Critical Actions: 4-6 pts:12-16.6% risk of adverse cardiac event. Should be admitted Results - Labs CBC & Chem 7: 02/17/20 04:14 02/19/20 15:45 Labs: Laboratory Last Values WBC 11.8 K/mm3 (4.5-11.0) H 02/17/20 04:14 RBC 3.79 M/mm3 (3.65-5.03) 02/17/20 04:14 Hgb 10.4 gm/dl (10.1-14.3) 02/17/20 04:14 Hct 32.0 % (30.3-42.9) D 02/17/20 04:14 MCV 85 fl (79-97) 02/17/20 04:14 MCH 28 pg (28-32) 02/17/20 04:14 MCHC 33 % (30-34) 02/17/20 04:14 RDW 14.5 % (13.2-15.2) 02/17/20 04:14 Plt Count 318 K/mm3 (140-440) 02/17/20 04:14 Lymph % (Auto) 10.4 % (13.4-35.0) L 02/17/20 04:14 [place] % (Auto) 4.8 % (0.0-7.3) 02/17/20 04:14 Eos % (Auto) 0.1 % (0.0-4.3) 02/17/20 04:14 Baso % (Auto) 1.1 % (0.0-1.8) 02/17/20 04:14 Lymph # (Auto) 1.2 K/mm3 (1.2-5.4) 02/17/20 04:14 [place] # (Auto) 0.6 K/mm3 (0.0-0.8) 02/17/20 04:14 Eos # (Auto) 0.0 K/mm3 (0.0-0.4) 02/17/20 04:14 Baso # (Auto) 0.1 K/mm3 (0.0-0.1) 02/17/20 04:14 Seg Neutrophils % 83.6 % (40.0-70.0) H 02/17/20 04:14 Seg Neutrophils # 9.9 K/mm3 (1.8-7.7) H 02/17/20 04:14 PT 13.0 Sec. (12.2-14.9) 02/15/20 20:10 INR 1.00 (0.87-1.13) 02/15/20 20:10 D-Dimer 3297.71 ng/mlDDU (0-234) H 02/15/20 20:10 VBG pH 7.297 (7.320-7.420) L 02/15/20 21:37 Sodium 144 mmol/L (137-145) 02/19/20 09:30 Potassium 2.7 mmol/L (3.6-5.0) L* 02/19/20 15:45 Chloride 104.3 mmol/L (98-107) 02/19/20 09:30 Carbon Dioxide 24 mmol/L (22-30) 02/19/20 09:30 Anion Gap 19 mmol/L 02/19/20 09:30 BUN 27 mg/dL (7-17) H 02/19/20 09:30 Creatinine 0.9 mg/dL (0.6-1.2) 02/19/20 09:30 Estimated GFR > 60 ml/min 02/19/20 09:30 BUN/Creatinine Ratio 30 % 02/19/20 09:30 Glucose 277 mg/dL (65-100) H 02/19/20 09:30 POC Glucose 51 mg/dL (70-105) L 02/19/20 16:37 Hemoglobin A1c 7.0 % (4-6) H 02/16/20 03:00 Lactic Acid 1.60 mmol/L (0.7-2.0) 02/15/20 22:55 Calcium 9.5 mg/dL (8.4-10.2) 02/19/20 09:30 Magnesium 1.50 mg/dL (1.7-2.3) L 02/19/20 15:45 Total Bilirubin 0.30 mg/dL (0.1-1.2) 02/18/20 07:18 Direct Bilirubin < 0.2 mg/dL (0-0.2) 02/16/20 14:54 Indirect Bilirubin 0.0 mg/dL 02/16/20 14:54 AST 12 units/L (5-40) 02/18/20 07:18 ALT 8 units/L (7-56) 02/18/20 07:18 Alkaline Phosphatase 124 units/L (35-129) 02/18/20 07:18 Total Creatine Kinase 153 units/L (30-135) H 02/15/20 20:10 Troponin T < 0.010 ng/mL (0.00-0.029) 02/16/20 14:54 Total Protein 7.6 g/dL (6.3-8.2) 02/18/20 07:18 Albumin 3.5 g/dL (3.9-5) L 02/18/20 07:18 Albumin/Globulin Ratio 0.9 % 02/18/20 07:18 Urine Color Yellow (Yellow) 02/15/20 Unknown Urine Turbidity Cloudy (Clear) 02/15/20 Unknown Urine pH 7.0 (5.0-7.0) 02/15/20 Unknown Ur Specific [place] 1.025 (1.003-1.030) 02/15/20 Unknown Urine Protein 100 mg/dl mg/dL (Negative) 02/15/20 Unknown Urine Glucose (UA) 150 mg/dL (Negative) 02/15/20 Unknown Urine Ketones 80 mg/dL (Negative) 02/15/20 Unknown Urine Blood Sm (Negative) 02/15/20 Unknown Urine Nitrite Neg (Negative) 02/15/20 Unknown Urine Bilirubin Neg (Negative) 02/15/20 Unknown Urine Urobilinogen < 2.0 mg/dL (<2.0) 02/15/20 Unknown Ur Leukocyte Esterase Mod (Negative) 02/15/20 Unknown Urine WBC (Auto) 133.0 /HPF (0.0-6.0) H 02/15/20 Unknown Urine RBC (Auto) 4.0 /HPF (0.0-6.0) 02/15/20 Unknown U Epithel Cells (Auto) 5.0 /HPF (0-13.0) 02/15/20 Unknown Urine Bacteria (Auto) 1+ /HPF (Negative) 02/15/20 Unknown Urine Mucus Few /HPF 02/15/20 Unknown Urine Yeast (Budding) Few /HPF 02/15/20 Unknown Salicylates < 0.3 mg/dL (2.8-20.0) L 02/15/20 21:37 Acetaminophen 5.0 ug/mL (10.0-30.0) L 02/15/20 21:37 Microbiology: Microbiology 02/15/20 21:41 Peripheral/Venous Blood Culture - Preliminary NO GROWTH AFTER 72 HOURS 02/15/20 21:37 Peripheral/Venous Blood Culture - Preliminary NO GROWTH AFTER 72 HOURS Dubose/IV: Voiding Method External Female Catheter IV Catheter Type [Left Forearm INT / Saline Lock ] IV Catheter Type [Right Peripheral IV Antecubital] IV Catheter Type [Right INT / Saline Lock External Jugular] Active Medications - Current Medications Current Medications: Generic Name Dose Route Start Last Admin Trade Name Freq PRN Reason Stop Dose Admin Al Hydrox/Mg Hydrox/Simethicone 15 ml 02/16/20 00:55 Alum-Mag Hydrox-Simeth 825-672-77tx/5ml PO Q4H PRN Indigestion Lipase/Protease/Amylase 1 each 02/19/20 17:06 Alexandra March 10,500 Unit FEEDTUBE PRN PRN For Clogged Feeding Tube Lipase/Protease/Amylase 1 each 02/19/20 17:08 Alexandra March 10,500 Unit FEEDTUBE PRN PRN For Clogged Feeding Tube Aspirin 81 mg 02/18/20 10:00 02/19/20 09:13 Halfprin Ec PO 81 mg DAILY SOL Administration Atorvastatin Calcium 40 mg 02/16/20 22:00 02/18/20 21:55 Lipitor PO 40 mg QHS SOL Administration Dextrose 50 ml 02/19/20 17:09 D50w (25gm) Syringe IV Q30MIN PRN Hypoglycemia Protocol Enoxaparin Sodium 40 mg 02/16/20 10:00 02/19/20 09:13 Enoxaparin SUB-Q 40 mg QDAY SOL Administration Protocol Hydralazine HCl 100 mg 02/18/20 10:00 02/19/20 09:12 Apresoline PO 100 mg TID SOL Administration Ceftriaxone Sodium 1 gm in 50 mls @ 100 mls/hr 02/16/20 12:00 02/19/20 09:13 Rocephin/Ns 1 Gm/50 Ml IV 02/22/20 10:29 100 mls/hr Q24HR SOL Administration Protocol Insulin Glargine 15 units 02/18/20 22:00 02/18/20 22:27 Lantus SUB-Q Not Given QHS [facility]END[facility] TO [facility] Insulin Human Lispro 0 unit 02/16/20 07:30 02/19/20 12:38 Humalog SUB-Q 1 unit ACHS SOL Administration Protocol Insulin Human Lispro 5 unit 02/18/20 11:30 02/19/20 12:38 Humalog SUB-Q 5 unit AC SOL Administration Labetalol HCl 10 mg 02/17/20 12:06 02/19/20 12:05 Labetalol IV 10 mg Q4H PRN Administration SBP >160 Lacosamide 200 mg 02/16/20 10:00 02/19/20 10:07 Vimpat PO 200 mg Q12HR SOL Administration Lactulose 20 gm 02/16/20 00:55 Cephulac PO QHS PRN Constipation Levetiracetam 750 mg 02/16/20 10:00 02/19/20 09:12 Keppra PO 750 mg BID [facility] Administration Lisinopril 20 mg 02/18/20 10:00 02/19/20 09:12 Zestril PO 20 mg QDAY [facility] Administration Metoprolol Tartrate 75 mg 02/19/20 11:00 02/19/20 12:40 Metoprolol PO Not Given BID@0800,1700 [facility] TO [facility] Nitroglycerin 0.4 mg 02/15/20 19:59 Nitrostat SL .Q5MIN PRN Chest Pain Ondansetron HCl 4 mg 02/16/20 00:55 02/17/20 08:33 Zofran IV 4 mg Q4H PRN Administration Nausea And Vomiting Pantoprazole Sodium 40 mg 02/18/20 16:30 02/19/20 09:12 Protonix PO 40 mg BIDAC [facility] Administration Sertraline HCl 150 mg 02/18/20 10:00 02/19/20 09:12 Zoloft PO 150 mg QDAY SOL Administration Simple Syrup 15 ml 02/19/20 17:06 Simple Syrup FEEDTUBE PRN PRN Hypoglycemia Simple Syrup 30 ml 02/19/20 17:06 Simple Syrup FEEDTUBE PRN PRN Hypoglycemia Simple Syrup 15 ml 02/19/20 17:08 Simple Syrup FEEDTUBE PRN PRN Hypoglycemia Simple Syrup 30 ml 02/19/20 17:08 Simple Syrup FEEDTUBE PRN PRN Hypoglycemia Sodium Bicarbonate 325 mg 02/19/20 17:06 Sodium Bicarbonate FEEDTUBE PRN PRN For Clogged Feeding Tube Sodium Bicarbonate 325 mg 02/19/20 17:08 Sodium Bicarbonate FEEDTUBE PRN PRN For Clogged Feeding Tube Tramadol HCl 50 mg 02/16/20 00:55 02/18/20 21:56 Ultram PO 50 mg Q4H PRN Administration Pain, Moderate (4-6) Trazodone HCl 50 mg 02/16/20 00:55 02/18/20 21:55 Desyrel PO 50 mg QHS PRN Administration Insomnia
[2020-02-19] MEDS ORDERED: D5W/0.9% NACL 1,000 ML IV SCH (18:00)
[2020-02-19] MEDS ORDERED: DEXTROSE 50% IN WATER (25GM) 50 ML SYRINGE IV PRN (18:00)
[2020-02-19] MEDS ORDERED: POTASSIUM CHLORIDE 20 MEQ PACKET FEEDTUBE ONE (18:14)
--- NOTE | 2020-02-19 18:41 | Event Note ---
Date: 02/19/20 I called patient's daughter Ms. Huber at [phone] and discussed in detail patient's condition, patient reports, treatment plan Patient refusing to take medications and diet, the need for Dobbhoff placement and tube feeding, I answered all her questions Encouraged her to call back if she has any new questions or concerns I informed patient's nurse of the above conversation with the daughter.
[2020-02-19] MEDS ORDERED: MAGNESIUM SULFATE 3 GM in SODIUM CHLORIDE 0.9% 100 ML IV ONE (20:00)
[2020-02-20] MEDS ORDERED: MAGNESIUM OXIDE 400 MG TAB PO ONE (00:22)
[2020-02-20] MEDS ORDERED: POTASSIUM CHLORIDE 20 MEQ PACKET FEEDTUBE ONE (00:23)
[2020-02-20] MEDS: cefTRIAXone/NS 1 GM/50 ML 1 GM/50 ML BAG IV SCH (11:52)
[2020-02-20] MEDS: LACOSAMIDE 50 MG TAB PO SCH (11:55)
[2020-02-20] MEDS: LISINOPRIL 20 MG TAB PO SCH (11:56)
[2020-02-20] MEDS: ASPIRIN EC 81 MG TAB PO SCH (11:56)
[2020-02-20] MEDS: SERTRALINE 50 MG TAB PO SCH (11:56)
[2020-02-20] MEDS: ENOXAPARIN 40 MG/0.4 ML INJ SUB-Q SCH (11:57)
[2020-02-20] MEDS: levETIRAcetam 500 MG TAB PO SCH ×2 (11:57→22:04)
[2020-02-20] MEDS: METOPROLOL TARTRATE 50 MG TAB PO SCH ×3 (13:33→18:37)
[2020-02-20] MEDS: PANTOPRAZOLE 40 MG TAB PO SCH ×3 (13:34→18:37)
[2020-02-20] MEDS: INSULIN LISPRO 100 UNIT/ML VIAL 3 mL SUB-Q SCH ×10 (13:34→22:07)
[2020-02-20] MEDS: hydrALAZINE 100 MG TAB PO SCH ×4 (13:34→22:05)
--- NOTE | 2020-02-20 13:59 | XRay Report ---
ABDOMEN 1 VIEW INDICATION / CLINICAL INFORMATION: To confirm Dobhoff placement. COMPARISON: CT abdomen/pelvis dated 02/15/2020. FINDINGS: TUBES / LINES: The weighted esophagogastric tube tip and sidehole project over the left upper quadran t of the abdomen. BOWEL GAS PATTERN: No significant abnormality. FREE AIR / EXTRALUMINAL GAS: None seen. ADDITIONAL FINDINGS: No significant additional findings. IMPRESSION: Esophagogastric tube in expected position. Signer Name: Joni Roman MD Signed: 02/20/2020 1:54 PM Workstation Name: [id number]
[2020-02-20] MEDS: POTASSIUM CHLORIDE 10 MEQ 10 MEQ/100 ML BAG IV SCH ×2 (18:31→18:32)
[2020-02-20] MEDS: LACOSAMIDE 100 MG TAB PO SCH (19:01)
--- NOTE | 2020-02-20 20:51 | Progress Note ---
Assessment and Plan Assessment and plan: --Acute metabolic encephalopathy; Current Visit: No Status: Acute . Plan to address problem: Multifactorial, hypertensive urgency, electrolyte abnormalities, hypoglycemia Supportive care, correct underlying cause CT head without contrast; no acute abnormality noted If symptoms do not improve We may get MRI brain as needed -- Hypertensive emergency Current Visit: No Status: Acute Plan to address problem: resume home bp med PRN lab Labetolol Chest x-ray- no acute finding ECHO-f/u with result -- Acute chest pain Current Visit: Yes Status: Acute Plan to address problem: Most likely 2/2 to elevated blood pressure troponin negative Chest x-ray and CTA of the chest-no acute finding 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 consult sublingual nitro PRN for chest pain -- Acute hypokalemia Current Visit: Yes Status: Acute Plan to address problem: Replete potassium per protocol Monitor electrolytes -- Hypomagnesemia Current Visit: Yes Status: Acute Plan to address problem: replace with magnesium sulfate IV Monitor electrolyte level --History of seizure disorder Current Visit: No Status: Chronic Plan to address problem: Seizure precautions 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 Hypokalemia and hypomagnesemia was corrected. We will continue sliding scale insulin and Lantus for diabetes, her hemoglobin A1c is 7.0. Chest pain resolved. Troponin was negative. Patient is on IV ceftriaxone for UTI. Will follow culture result. 02/18/2020 -Blood pressure is uncontrolled and I increase lisinopril from 5 to 20 mg, continue Toprol 50 mg p.o. twice daily, I added hydralazine 100 mg p.o. 3 times daily. We will continue monitor blood pressure and adjust as needed. Patient is on IV IV ceftriaxone for UTI. Will follow the culture result. Blood sugar is uncontrolled and I added Lantus 20 units now and 15 units of Lantus nightly, and 5 units of AC humalog insulin. 02/19/2020; Blood pressures remain uncontrolled Unable to give oral medications due to patient's noncooperation As per nurse patient is not opening her mouth not taking oral medications or diet Will place Dobbhoff, both for medications and for feeding I spoke with patient's daughter Ms. Huber at [phone] and discussed in detail patient's condition and treatment plan 02/20/2020; patient is receiving tube feeding, still noncommunicative, will check for speech therapy evaluation And if abnormal patient may need PEG placement History Interval history: I have seen and examined the patient at the bedside Patient received Dobbhoff, will start tube feeding Noncommunicative uncooperative Family aware, vital signs noted Hospitalist Physical - Constitutional Vitals: Temp Pulse Resp BP Pulse Ox 97.0 F L 106 H 16 172/79 98 02/20/20 19:18 02/20/20 19:18 02/20/20 19:18 02/20/20 19:18 02/20/20 19:18 General appearance: Present: mild distress, well-nourished, other (Noncommunicative) - EENT Eyes: Present: PERRL, EOM intact - Neck Neck: Present: supple, normal ROM - Respiratory Respiratory effort: normal Respiratory: bilateral: diminished, negative: rales, rhonchi, wheezing - Cardiovascular Rhythm: regular Heart Sounds: Present: S1 & S2 - Extremities Extremities: no ischemia, No edema - Abdominal General gastrointestinal: soft, non-tender, non-distended, normal bowel sounds - Integumentary Integumentary: Present: clear, warm - Psychiatric Psychiatric: other (Confused noncommunicative) - Neurologic Neurologic: other (Dementia) HEART Score - HEART Score EKG: Non-specific Age: > 65 Risk factors: > 3 risk factors or hx of atherosclerotic disease Troponin: Troponin T < 0.010 ng/mL (0.00-0.029) 02/16/20 14:54 Troponin: < normal limit - Critical Actions Critical Actions: 4-6 pts:12-16.6% risk of adverse cardiac event. Should be admitted Results - Labs CBC & Chem 7: 02/17/20 04:14 02/19/20 15:45 Labs: Laboratory Last Values WBC 11.8 K/mm3 (4.5-11.0) H 02/17/20 04:14 RBC 3.79 M/mm3 (3.65-5.03) 02/17/20 04:14 Hgb 10.4 gm/dl (10.1-14.3) 02/17/20 04:14 Hct 32.0 % (30.3-42.9) D 02/17/20 04:14 MCV 85 fl (79-97) 02/17/20 04:14 MCH 28 pg (28-32) 02/17/20 04:14 MCHC 33 % (30-34) 02/17/20 04:14 RDW 14.5 % (13.2-15.2) 02/17/20 04:14 Plt Count 318 K/mm3 (140-440) 02/17/20 04:14 Lymph % (Auto) 10.4 % (13.4-35.0) L 02/17/20 04:14 [place] % (Auto) 4.8 % (0.0-7.3) 02/17/20 04:14 Eos % (Auto) 0.1 % (0.0-4.3) 02/17/20 04:14 Baso % (Auto) 1.1 % (0.0-1.8) 02/17/20 04:14 Lymph # (Auto) 1.2 K/mm3 (1.2-5.4) 02/17/20 04:14 [place] # (Auto) 0.6 K/mm3 (0.0-0.8) 02/17/20 04:14 Eos # (Auto) 0.0 K/mm3 (0.0-0.4) 02/17/20 04:14 Baso # (Auto) 0.1 K/mm3 (0.0-0.1) 02/17/20 04:14 Seg Neutrophils % 83.6 % (40.0-70.0) H 02/17/20 04:14 Seg Neutrophils # 9.9 K/mm3 (1.8-7.7) H 02/17/20 04:14 PT 13.0 Sec. (12.2-14.9) 02/15/20 20:10 INR 1.00 (0.87-1.13) 02/15/20 20:10 D-Dimer 3297.71 ng/mlDDU (0-234) H 02/15/20 20:10 VBG pH 7.297 (7.320-7.420) L 02/15/20 21:37 Sodium 144 mmol/L (137-145) 02/19/20 09:30 Potassium 2.7 mmol/L (3.6-5.0) L* 02/19/20 15:45 Chloride 104.3 mmol/L (98-107) 02/19/20 09:30 Carbon Dioxide 24 mmol/L (22-30) 02/19/20 09:30 Anion Gap 19 mmol/L 02/19/20 09:30 BUN 27 mg/dL (7-17) H 02/19/20 09:30 Creatinine 0.9 mg/dL (0.6-1.2) 02/19/20 09:30 Estimated GFR > 60 ml/min 02/19/20 09:30 BUN/Creatinine Ratio 30 % 02/19/20 09:30 Glucose 277 mg/dL (65-100) H 02/19/20 09:30 POC Glucose 309 mg/dL (70-105) H 02/20/20 15:31 Hemoglobin A1c 7.0 % (4-6) H 02/16/20 03:00 Lactic Acid 1.60 mmol/L (0.7-2.0) 02/15/20 22:55 Calcium 9.5 mg/dL (8.4-10.2) 02/19/20 09:30 Magnesium 1.50 mg/dL (1.7-2.3) L 02/19/20 15:45 Total Bilirubin 0.30 mg/dL (0.1-1.2) 02/18/20 07:18 Direct Bilirubin < 0.2 mg/dL (0-0.2) 02/16/20 14:54 Indirect Bilirubin 0.0 mg/dL 02/16/20 14:54 AST 12 units/L (5-40) 02/18/20 07:18 ALT 8 units/L (7-56) 02/18/20 07:18 Alkaline Phosphatase 124 units/L (35-129) 02/18/20 07:18 Total Creatine Kinase 153 units/L (30-135) H 02/15/20 20:10 Troponin T < 0.010 ng/mL (0.00-0.029) 02/16/20 14:54 Total Protein 7.6 g/dL (6.3-8.2) 02/18/20 07:18 Albumin 3.5 g/dL (3.9-5) L 02/18/20 07:18 Albumin/Globulin Ratio 0.9 % 02/18/20 07:18 Urine Color Yellow (Yellow) 02/15/20 Unknown Urine Turbidity Cloudy (Clear) 02/15/20 Unknown Urine pH 7.0 (5.0-7.0) 02/15/20 Unknown Ur Specific [place] 1.025 (1.003-1.030) 02/15/20 Unknown Urine Protein 100 mg/dl mg/dL (Negative) 02/15/20 Unknown Urine Glucose (UA) 150 mg/dL (Negative) 02/15/20 Unknown Urine Ketones 80 mg/dL (Negative) 02/15/20 Unknown Urine Blood Sm (Negative) 02/15/20 Unknown Urine Nitrite Neg (Negative) 02/15/20 Unknown Urine Bilirubin Neg (Negative) 02/15/20 Unknown Urine Urobilinogen < 2.0 mg/dL (<2.0) 02/15/20 Unknown Ur Leukocyte Esterase Mod (Negative) 02/15/20 Unknown Urine WBC (Auto) 133.0 /HPF (0.0-6.0) H 02/15/20 Unknown Urine RBC (Auto) 4.0 /HPF (0.0-6.0) 02/15/20 Unknown U Epithel Cells (Auto) 5.0 /HPF (0-13.0) 02/15/20 Unknown Urine Bacteria (Auto) 1+ /HPF (Negative) 02/15/20 Unknown Urine Mucus Few /HPF 02/15/20 Unknown Urine Yeast (Budding) Few /HPF 02/15/20 Unknown Salicylates < 0.3 mg/dL (2.8-20.0) L 02/15/20 21:37 Acetaminophen 5.0 ug/mL (10.0-30.0) L 02/15/20 21:37 Microbiology: Microbiology 02/15/20 21:41 Peripheral/Venous Blood Culture - Preliminary NO GROWTH AFTER 4 DAYS 02/15/20 21:37 Peripheral/Venous Blood Culture - Preliminary NO GROWTH AFTER 4 DAYS [place]/IV: Voiding Method Incontinent IV Catheter Type [Left INT / Saline Lock Antecubital] IV Catheter Type [Left Forearm INT / Saline Lock ] IV Catheter Type [Right Peripheral IV Antecubital] IV Catheter Type [Right INT / Saline Lock External Jugular] Active Medications - Current Medications Current Medications: Generic Name Dose Route Start Last Admin Trade Name Freq PRN Reason Stop Dose Admin Al Hydrox/Mg Hydrox/Simethicone 15 ml 02/16/20 00:55 Alum-Mag Hydrox-Simeth [phone]/5ml PO Q4H PRN Indigestion Lipase/Protease/Amylase 1 each 02/19/20 18:00 Pancreaze 10,500 Unit FEEDTUBE PRN PRN For Clogged Feeding Tube Aspirin 81 mg 02/18/20 10:00 02/20/20 11:56 Halfprin Ec PO 81 mg DAILY SOL Administration Atorvastatin Calcium 40 mg 02/16/20 22:00 02/19/20 22:21 Lipitor PO 40 mg QHS SOL Administration Dextrose 50 ml 02/19/20 18:00 02/20/20 05:55 D50w (25gm) Syringe IV 50 ml Q30MIN PRN Administration Hypoglycemia Protocol Enoxaparin Sodium 40 mg 02/16/20 10:00 02/20/20 11:57 Enoxaparin SUB-Q 40 mg QDAY SOL Administration Protocol Hydralazine HCl 100 mg 02/18/20 10:00 02/20/20 18:36 Apresoline PO Not Given TID SOL Ceftriaxone Sodium 1 gm in 50 mls @ 100 mls/hr 02/16/20 12:00 02/20/20 11:52 Rocephin/Ns 1 Gm/50 Ml IV 02/22/20 10:29 100 mls/hr Q24HR SOL Administration Protocol Dextrose/Sodium Chloride 1,000 mls @ 75 mls/hr 02/19/20 18:00 D5ns IV DIRECT SOL Insulin Human Lispro 0 unit 02/16/20 07:30 02/20/20 18:36 Humalog SUB-Q 4 unit ACHS SOL Administration Protocol Insulin Human Lispro 5 unit 02/18/20 11:30 02/20/20 18:36 Humalog SUB-Q 5 unit AC SOL Administration Labetalol HCl 10 mg 02/17/20 12:06 02/19/20 12:05 Labetalol IV 10 mg Q4H PRN Administration SBP >160 Lacosamide 200 mg 02/20/20 11:00 02/20/20 11:55 Vimpat PO 200 mg Q12HR SOL Administration Lactulose 20 gm 02/16/20 00:55 Cephulac PO QHS PRN Constipation Levetiracetam 750 mg 02/16/20 10:00 02/20/20 11:57 Keppra PO 750 mg BID SLO Administration Lisinopril 20 mg 02/18/20 10:00 02/20/20 11:56 Zestril PO 20 mg QDAY SOL Administration Metoprolol Tartrate 75 mg 02/19/20 11:00 02/20/20 18:37 Metoprolol PO Not Given BID@0800,1700 [facility] Nitroglycerin 0.4 mg 02/15/20 19:59 Nitrostat SL .Q5MIN PRN Chest Pain Ondansetron HCl 4 mg 02/16/20 00:55 02/17/20 08:33 Zofran IV 4 mg Q4H PRN Administration Nausea And Vomiting Pantoprazole Sodium 40 mg 02/18/20 16:30 02/20/20 18:37 Protonix PO Not Given BIDAC SOL Sertraline HCl 150 mg 02/18/20 10:00 02/20/20 11:56 Zoloft PO 150 mg QDAY SOL Administration Simple Syrup 15 ml 02/19/20 18:00 02/20/20 05:55 Simple Syrup FEEDTUBE 15 ml PRN PRN Administration Hypoglycemia Simple Syrup 30 ml 02/19/20 18:00 Simple Syrup FEEDTUBE PRN PRN Hypoglycemia Sodium Bicarbonate 325 mg 02/19/20 18:00 Sodium Bicarbonate FEEDTUBE PRN PRN For Clogged Feeding Tube Tramadol HCl 50 mg 02/16/20 00:55 02/18/20 21:56 Ultram PO 50 mg Q4H PRN Administration Pain, Moderate (4-6) Trazodone HCl 50 mg 02/16/20 00:55 02/18/20 21:55 Desyrel PO 50 mg QHS PRN Administration Insomnia Nutrition/Malnutrition Assess - Dietary Evaluation Nutrition/Malnutrition Findings: Nutrition Notes Start: 02/20/20 12:25 Freq: Status: Active Protocol: Document 02/20/20 12:25 CW (Rec: 02/20/20 13:28 CW [email or web address]) Co-Sign 02/20/20 12:25 LM Nutrition Notes Need for Assessment generated from: MD Order Initial or Follow up Assessment Current Diagnosis Diabetes,Hypertension Other Pertinent Diagnosis UTI, hypomagnesemia, hypoglycemia, hypokalemia, seizures Current Diet cardiac diet Labs/Tests (02/18) K 2.7 BUN 27 (02/19) BG 277 POC BG 264 Mag 1.50 Pertinent Medications D50w at 50 ml IV Q30min PRN Simple Syrup 15 ml PRN Lipitor Humalog Zofran Height 5 ft 2 in Weight 65 kg [place] Body Weight (kg) 50.00 BMI 26.2 Weight Status Overweight Subjective/Other Information Consult to assess nutritional needs and TF order. Pt has not had bowel movement. Pt refused prevous diet and Dobbhoff placement. Pt was asleep at time of visit. Burn Absent Trauma Absent GI Symptoms Nausea Food Allergy No Skin Integrity/Comment Du Score 15 Current % PO Negligible Minimum of two criteria No physical signs of malnutrition #1 Nutrition Diagnosis Inadequate oral intake Etiology refusal to eat As Evidenced by Signs and Symptoms 0% of oral intakes and refusal of Dobbhoff placement Is patient on ventilator? No Is Patient Ambulatory and/or Out of Bed Yes REE-([facility]-ambulatory/OOB) [ 1473.225 [id number]] Calculation Used for Recommendations [facility] Additional Notes Protein needs are up to 65-78g (up to 1-1.2g/kg) Fluid needs are 1ml/kcal Nutrition Intervention Change Diet Order: TF when medical fesible Nutrition Support: Initiate Glucerna 1.2 at 50ml/ hr Flush with 100ml q4h Kcal 1,470 Protein (gm) 73 Fluid (mL) 982 Goal #1 Start TF Anticipated Discharge Needs: Unable to determine at this time Follow-Up By: 02/22/20 Additional Comments F/U for TF placement and start , K lab
[2020-02-21] MEDS: LACOSAMIDE 50 MG TAB PO SCH ×2 (00:48→11:03)
[2020-02-21] MEDS: METOPROLOL TARTRATE 50 MG TAB PO SCH ×2 (08:00→18:47)
[2020-02-21] MEDS: PANTOPRAZOLE 40 MG TAB PO SCH ×2 (08:00→18:45)
[2020-02-21] MEDS: hydrALAZINE 100 MG TAB PO SCH ×3 (08:00→21:54)
[2020-02-21] MEDS: INSULIN LISPRO 100 UNIT/ML VIAL 3 mL SUB-Q SCH ×7 (10:27→21:55)
[2020-02-21] MEDS: ASPIRIN EC 81 MG TAB PO SCH (11:02)
[2020-02-21] MEDS: ENOXAPARIN 40 MG/0.4 ML INJ SUB-Q SCH (11:02)
[2020-02-21] MEDS: levETIRAcetam 500 MG TAB PO SCH ×2 (11:03→21:54)
[2020-02-21] MEDS: LISINOPRIL 20 MG TAB PO SCH (11:04)
[2020-02-21] MEDS: SERTRALINE 50 MG TAB PO SCH (11:04)
[2020-02-21] MEDS: cefTRIAXone/NS 1 GM/50 ML 1 GM/50 ML BAG IV SCH (11:06)
--- NOTE | 2020-02-21 13:14 | XRay Report ---
XR abdomen 1V ap INDICATION: ngt placement verification. COMPARISON: 02/20/2020 FINDINGS: The tip of the feeding tube is coiled in the proximal stomach. Signer Name: Darrian Whitney MD Signed: 02/21/2020 1:09 PM Workstation Name: [id number]
--- NOTE | 2020-02-21 14:17 | XRay Report ---
ABDOMEN ONE VIEW INDICATION / CLINICAL INFORMATION: ntg adjustment. COMPARISON: None available. FINDINGS: A feeding tube is present with the tip superimposed over the expected position of the gastric fundus. This has not changed significantly from earlier today Signer Name: Alonzo Roman MD FACR Signed: 02/21/2020 2:13 PM Workstation Name: [id number]
--- NOTE | 2020-02-21 19:24 | Progress Note ---
Assessment and Plan Assessment and plan: --Dysphagia/failed swallow evaluation; Current Visit: No Status: Acute . Plan to address problem: Speech therapist evaluated the patient, Not a candidate for oral nutrition, high aspiration risk Recommended PEG placement Consulted GI. Also discussed with the patient's daughter Mya Agreed for the procedure N.p.o. from midnight --Acute metabolic encephalopathy; Current Visit: No Status: Acute . Plan to address problem: Multifactorial, hypertensive urgency, electrolyte abnormalities, hypoglycemia Supportive care, correct underlying cause CT head without contrast; no acute abnormality noted. 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 PRN for chest pain -- Acute hypokalemia Current Visit: Yes Status: Acute Plan to address problem: Replete potassium per protocol Monitor electrolytes -- Hypomagnesemia Current Visit: Yes Status: Acute Plan to address problem: replace with magnesium sulfate IV Monitor electrolyte level --History of seizure disorder Current Visit: No Status: Chronic Plan to address problem: Seizure precautions 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 Hypokalemia and hypomagnesemia was corrected. We will continue sliding scale insulin and Lantus for diabetes, her hemoglobin A1c is 7.0. Chest pain resolved. Troponin was negative. Patient is on IV ceftriaxone for UTI. Will follow culture result. 02/18/2020 -Blood pressure is uncontrolled and I increase lisinopril from 5 to 20 mg, continue Toprol 50 mg p.o. twice daily, I added hydralazine 100 mg p.o. 3 times daily. We will continue monitor blood pressure and adjust as needed. Patient is on IV IV ceftriaxone for UTI. Will follow the culture result. Blood sugar is uncontrolled and I added Lantus 20 units now and 15 units of Lantus nightly, and 5 units of AC humalog insulin. 02/19/2020; Blood pressures remain uncontrolled Unable to give oral medications due to patient's noncooperation As per nurse patient is not opening her mouth not taking oral medications or diet Will place Dobbhoff, both for medications and for feeding I spoke with patient's daughter Ms. Huber at [phone] and discussed in detail patient's condition and treatment plan 02/20/2020; patient is receiving tube feeding, still noncommunicative, will check for speech therapy evaluation And if abnormal patient may need PEG placement 02/21/2020; patient was evaluated by speech therapist, failed swallow evaluation, high risk for aspiration Recommended PEG placement, GI consulted, discussed with patient's daughter Ms. Roque, agreed for the procedure Patient will be n.p.o. from midnight History Interval history: I have seen and examined the patient at the bedside this morning Patient's chart and medications reviewed Patient noncommunicative confused lethargic Receiving Dobbhoff feeds Patient was evaluated by speech therapist Failed swallow evaluation recommended PEG placement Vital signs noted Hospitalist Physical - Constitutional Vitals: Temp Pulse Resp BP Pulse Ox 98.7 F 87 18 145/72 99 02/21/20 15:45 02/21/20 18:47 02/21/20 15:45 02/21/20 15:45 02/21/20 15:45 General appearance: Present: no acute distress, well-nourished, other (Noncommunicative) - EENT Eyes: Present: PERRL, EOM intact ENT: other (Dobbhoff in place) - Neck Neck: Present: supple, normal ROM - Respiratory Respiratory effort: normal Respiratory: bilateral: diminished, negative: rales, rhonchi, wheezing - Cardiovascular Rhythm: regular Heart Sounds: Present: S1 & S2 - Extremities Extremities: no ischemia, No edema - Abdominal General gastrointestinal: soft, non-tender, non-distended, normal bowel sounds - Integumentary Integumentary: Present: clear, warm - Psychiatric Psychiatric: appropriate mood/affect, cooperative - Neurologic Neurologic: CNII-XII intact, moves all extremities HEART Score - HEART Score EKG: Non-specific Age: > 65 Risk factors: > 3 risk factors or hx of atherosclerotic disease Troponin: Troponin T < 0.010 ng/mL (0.00-0.029) 02/16/20 14:54 Troponin: < normal limit - Critical Actions Critical Actions: 4-6 pts:12-16.6% risk of adverse cardiac event. Should be admitted Results - Labs CBC & Chem 7: 02/17/20 04:14 02/19/20 15:45 Labs: Laboratory Last Values WBC 11.8 K/mm3 (4.5-11.0) H 02/17/20 04:14 RBC 3.79 M/mm3 (3.65-5.03) 02/17/20 04:14 Hgb 10.4 gm/dl (10.1-14.3) 02/17/20 04:14 Hct 32.0 % (30.3-42.9) D 02/17/20 04:14 MCV 85 fl (79-97) 02/17/20 04:14 MCH 28 pg (28-32) 02/17/20 04:14 MCHC 33 % (30-34) 02/17/20 04:14 RDW 14.5 % (13.2-15.2) 02/17/20 04:14 Plt Count 318 K/mm3 (140-440) 02/17/20 04:14 Lymph % (Auto) 10.4 % (13.4-35.0) L 02/17/20 04:14 Chambers % (Auto) 4.8 % (0.0-7.3) 02/17/20 04:14 Eos % (Auto) 0.1 % (0.0-4.3) 02/17/20 04:14 Baso % (Auto) 1.1 % (0.0-1.8) 02/17/20 04:14 Lymph # (Auto) 1.2 K/mm3 (1.2-5.4) 02/17/20 04:14 Chambers # (Auto) 0.6 K/mm3 (0.0-0.8) 02/17/20 04:14 Eos # (Auto) 0.0 K/mm3 (0.0-0.4) 02/17/20 04:14 Baso # (Auto) 0.1 K/mm3 (0.0-0.1) 02/17/20 04:14 Seg Neutrophils % 83.6 % (40.0-70.0) H 02/17/20 04:14 Seg Neutrophils # 9.9 K/mm3 (1.8-7.7) H 02/17/20 04:14 PT 13.0 Sec. (12.2-14.9) 02/15/20 20:10 INR 1.00 (0.87-1.13) 02/15/20 20:10 D-Dimer 3297.71 ng/mlDDU (0-234) H 02/15/20 20:10 VBG pH 7.297 (7.320-7.420) L 02/15/20 21:37 Sodium 144 mmol/L (137-145) 02/19/20 09:30 Potassium 2.7 mmol/L (3.6-5.0) L* 02/19/20 15:45 Chloride 104.3 mmol/L (98-107) 02/19/20 09:30 Carbon Dioxide 24 mmol/L (22-30) 02/19/20 09:30 Anion Gap 19 mmol/L 02/19/20 09:30 BUN 27 mg/dL (7-17) H 02/19/20 09:30 Creatinine 0.9 mg/dL (0.6-1.2) 02/19/20 09:30 Estimated GFR > 60 ml/min 02/19/20 09:30 BUN/Creatinine Ratio 30 % 02/19/20 09:30 Glucose 277 mg/dL (65-100) H 02/19/20 09:30 POC Glucose 235 mg/dL (70-105) H 02/21/20 15:45 Hemoglobin A1c 7.0 % (4-6) H 02/16/20 03:00 Lactic Acid 1.60 mmol/L (0.7-2.0) 02/15/20 22:55 Calcium 9.5 mg/dL (8.4-10.2) 02/19/20 09:30 Magnesium 1.50 mg/dL (1.7-2.3) L 02/19/20 15:45 Total Bilirubin 0.30 mg/dL (0.1-1.2) 02/18/20 07:18 Direct Bilirubin < 0.2 mg/dL (0-0.2) 02/16/20 14:54 Indirect Bilirubin 0.0 mg/dL 02/16/20 14:54 AST 12 units/L (5-40) 02/18/20 07:18 ALT 8 units/L (7-56) 02/18/20 07:18 Alkaline Phosphatase 124 units/L (35-129) 02/18/20 07:18 Total Creatine Kinase 153 units/L (30-135) H 02/15/20 20:10 Troponin T < 0.010 ng/mL (0.00-0.029) 02/16/20 14:54 Total Protein 7.6 g/dL (6.3-8.2) 02/18/20 07:18 Albumin 3.5 g/dL (3.9-5) L 02/18/20 07:18 Albumin/Globulin Ratio 0.9 % 02/18/20 07:18 Urine Color Yellow (Yellow) 02/15/20 Unknown Urine Turbidity Cloudy (Clear) 02/15/20 Unknown Urine pH 7.0 (5.0-7.0) 02/15/20 Unknown Ur Specific [place] 1.025 (1.003-1.030) 02/15/20 Unknown Urine Protein 100 mg/dl mg/dL (Negative) 02/15/20 Unknown Urine Glucose (UA) 150 mg/dL (Negative) 02/15/20 Unknown Urine Ketones 80 mg/dL (Negative) 02/15/20 Unknown Urine Blood Sm (Negative) 02/15/20 Unknown Urine Nitrite Neg (Negative) 02/15/20 Unknown Urine Bilirubin Neg (Negative) 02/15/20 Unknown Urine Urobilinogen < 2.0 mg/dL (<2.0) 02/15/20 Unknown Ur Leukocyte Esterase Mod (Negative) 02/15/20 Unknown Urine WBC (Auto) 133.0 /HPF (0.0-6.0) H 02/15/20 Unknown Urine RBC (Auto) 4.0 /HPF (0.0-6.0) 02/15/20 Unknown U Epithel Cells (Auto) 5.0 /HPF (0-13.0) 02/15/20 Unknown Urine Bacteria (Auto) 1+ /HPF (Negative) 02/15/20 Unknown Urine Mucus Few /HPF 02/15/20 Unknown Urine Yeast (Budding) Few /HPF 02/15/20 Unknown Salicylates < 0.3 mg/dL (2.8-20.0) L 02/15/20 21:37 Acetaminophen 5.0 ug/mL (10.0-30.0) L 02/15/20 21:37 Microbiology: Microbiology 02/15/20 21:41 Peripheral/Venous Blood Culture - Final NO GROWTH AFTER 5 DAYS 02/15/20 21:37 Peripheral/Venous Blood Culture - Final NO GROWTH AFTER 5 DAYS Dubose/IV: Voiding Method Incontinent IV Catheter Type [Left INT / Saline Lock Antecubital] IV Catheter Type [Left Forearm INT / Saline Lock ] IV Catheter Type [Right Peripheral IV Antecubital] IV Catheter Type [Right INT / Saline Lock External Jugular] Active Medications - Current Medications Current Medications: Generic Name Dose Route Start Last Admin Trade Name Freq PRN Reason Stop Dose Admin Al Hydrox/Mg Hydrox/Simethicone 15 ml 02/16/20 00:55 Alum-Mag Hydrox-Simeth 870-929-97zz/5ml PO Q4H PRN Indigestion Lipase/Protease/Amylase 1 each 02/19/20 18:00 Pancreaze 10,500 Unit FEEDTUBE PRN PRN For Clogged Feeding Tube Aspirin 81 mg 02/18/20 10:00 02/21/20 11:02 Halfprin Ec PO 81 mg DAILY SOL Administration Atorvastatin Calcium 40 mg 02/16/20 22:00 02/20/20 22:03 Lipitor PO 40 mg QHS SOL Administration Dextrose 50 ml 02/19/20 18:00 02/20/20 05:55 D50w (25gm) Syringe IV 50 ml Q30MIN PRN Administration Hypoglycemia Protocol Enoxaparin Sodium 40 mg 02/16/20 10:00 02/21/20 11:02 Enoxaparin SUB-Q 40 mg QDAY SOL Administration Protocol Hydralazine HCl 100 mg 02/18/20 10:00 02/21/20 16:00 Apresoline PO 100 mg TID SOL Administration Ceftriaxone Sodium 1 gm in 50 mls @ 100 mls/hr 02/16/20 12:00 02/21/20 11:06 Rocephin/Ns 1 Gm/50 Ml IV 02/22/20 10:29 100 mls/hr Q24HR SOL Administration Protocol Dextrose/Sodium Chloride 1,000 mls @ 75 mls/hr 02/19/20 18:00 D5ns IV DIRECT SOL Insulin Human Lispro 0 unit 02/16/20 07:30 02/21/20 18:39 Humalog SUB-Q 300 unit ACHS SOL Administration Protocol Insulin Human Lispro 5 unit 02/18/20 11:30 02/21/20 18:40 Humalog SUB-Q Not Given AC [facility] Labetalol HCl 10 mg 02/17/20 12:06 02/19/20 12:05 Labetalol IV 10 mg Q4H PRN Administration SBP >160 Lacosamide 200 mg 02/21/20 22:00 Vimpat PO Q12HR [facility] Lactulose 20 gm 02/16/20 00:55 Cephulac PO QHS PRN Constipation Levetiracetam 750 mg 02/16/20 10:00 02/21/20 11:03 Keppra PO 750 mg BID SOL Administration Lisinopril 20 mg 02/18/20 10:00 02/21/20 11:04 Zestril PO 20 mg QDAY SOL Administration Metoprolol Tartrate 75 mg 02/19/20 11:00 02/21/20 18:47 Metoprolol PO 75 mg BID@0800,1700 [facility] Administration Nitroglycerin 0.4 mg 02/15/20 19:59 Nitrostat SL .Q5MIN PRN Chest Pain Ondansetron HCl 4 mg 02/16/20 00:55 02/17/20 08:33 Zofran IV 4 mg Q4H PRN Administration Nausea And Vomiting Pantoprazole Sodium 40 mg 02/18/20 16:30 02/21/20 18:45 Protonix PO 40 mg BIDAC SOL Administration Sertraline HCl 150 mg 02/18/20 10:00 02/21/20 11:04 Zoloft PO 150 mg QDAY SOL Administration Simple Syrup 15 ml 02/19/20 18:00 02/20/20 05:55 Simple Syrup FEEDTUBE 15 ml PRN PRN Administration Hypoglycemia Simple Syrup 30 ml 02/19/20 18:00 Simple Syrup FEEDTUBE PRN PRN Hypoglycemia Sodium Bicarbonate 325 mg 02/19/20 18:00 Sodium Bicarbonate FEEDTUBE PRN PRN For Clogged Feeding Tube Tramadol HCl 50 mg 02/16/20 00:55 02/18/20 21:56 Ultram PO 50 mg Q4H PRN Administration Pain, Moderate (4-6) Trazodone HCl 50 mg 02/16/20 00:55 02/18/20 21:55 Desyrel PO 50 mg QHS PRN Administration Insomnia Nutrition/Malnutrition Assess - Dietary Evaluation Nutrition/Malnutrition Findings: Nutrition Notes Start: 02/20/20 12:25 Freq: Status: Active Protocol: Document 02/20/20 12:25 CW (Rec: 02/20/20 13:28 CW [email or web address]) Co-Sign 02/20/20 12:25 LM Nutrition Notes Need for Assessment generated from: MD Order Initial or Follow up Assessment Current Diagnosis Diabetes,Hypertension Other Pertinent Diagnosis UTI, hypomagnesemia, hypoglycemia, hypokalemia, seizures Current Diet cardiac diet Labs/Tests (02/18) K 2.7 BUN 27 (02/19) BG 277 POC BG 264 Mag 1.50 Pertinent Medications D50w at 50 ml IV Q30min PRN Simple Syrup 15 ml PRN Lipitor Humalog Zofran Height 5 ft 2 in Weight 65 kg Gregory Body Weight (kg) 50.00 BMI 26.2 Weight Status Overweight Subjective/Other Information Consult to assess nutritional needs and TF order. Pt has not had bowel movement. Pt refused prevous diet and Dobbhoff placement. Pt was asleep at time of visit. Burn Absent Trauma Absent GI Symptoms Nausea Food Allergy No Skin Integrity/Comment Du Score 15 Current % PO Negligible Minimum of two criteria No physical signs of malnutrition #1 Nutrition Diagnosis Inadequate oral intake Etiology refusal to eat As Evidenced by Signs and Symptoms 0% of oral intakes and refusal of Dobbhoff placement Is patient on ventilator? No Is Patient Ambulatory and/or Out of Bed Yes [facility] [ [id number] [id number]] Calculation Used for Recommendations [facility] Additional Notes Protein needs are up to 65-78g (up to 1-1.2g/kg) Fluid needs are 1ml/kcal Nutrition Intervention Change Diet Order: TF when medical fesible Nutrition Support: Initiate Glucerna 1.2 at 50ml/ hr Flush with 100ml q4h Kcal 1,470 Protein (gm) 73 Fluid (mL) 982 Goal #1 Start TF Anticipated Discharge Needs: Unable to determine at this time Follow-Up By: 02/22/20 Additional Comments F/U for TF placement and start , K lab
--- NOTE | 2020-02-21 19:26 | Event Note ---
Date: 02/21/20 I called patient's daughter Ms. Huber at [phone] again today and discussed in detail patient unable to take nutrition or medication by mouth Has been receiving Dobbhoff feeds, evaluated by speech therapist today, failed swallow eval, recommended PEG placement. I also informed her that we consulted GI for possible PEG placement tomorrow, discussed with her some details of PEG tube placement and PEG feeds She verbalized understanding, and agreed to go ahead with PEG tube placement tomorrow. I also informed her that she needs to discuss with GI and give consent for the procedure. She agreed .
[2020-02-21] MEDS: LACOSAMIDE 100 MG TAB PO SCH (21:54)
[2020-02-21] MEDS: traZODone 50 MG TAB PO PRN (22:01)
[2020-02-22 00:28] LABS: Alanine Aminotransferase 19 units/L (7-56); Albumin 2.9 g/dL (3.9-5); BUN/Creatinine Ratio 37; Blood Urea Nitrogen 44 mg/dL (7-17); Calcium 9.5 mg/dL (8.4-10.2); Hemolysis Index 12
[2020-02-22 05:17] LABS: Hemoglobin 10.6 gm/dl (10.1-14.3); Mean Corpuscular HGB Conc 32 % (30-34); Mean Corpuscular Volume 85 fl (79-97); Red Blood Count 3.87 M/mm3 (3.65-5.03); Red Cell Distribution Width 14.6 % (13.2-15.2)
[2020-02-22 05:19] LABS: Platelet Count 219 K/mm3 (140-440)
[2020-02-22 05:34] LABS: INR 1.02 (0.87-1.13)
--- NOTE | 2020-02-22 07:42 | Progress Note ---
Assessment and Plan Assessment and plan: --s/p PEG placement today; Patient tolerated the procedure well, start tube feeding after 6 hours after the procedure Aspiration precautions and supportive care --Dysphagia/failed swallow evaluation; Current Visit: No Status: Acute . Plan to address problem: s/p PEG today, uncomplicated We will start tube feeds after 6 hours --Acute metabolic encephalopathy; Current Visit: No Status: Acute . Plan to address problem: Multifactorial, hypertensive urgency, electrolyte abnormalities, hypoglycemia Supportive care, correct underlying cause CT head without contrast; no acute abnormality noted. If symptoms do not improve We may get MRI brain as needed -- Hypertensive emergency Current Visit: No Status: Acute Plan to address problem: resume home bp med PRN lab Labetolol Chest x-ray- no acute finding ECHO-f/u with result -- Acute chest pain Current Visit: Yes Status: Acute Plan to address problem: Most likely 2/2 to elevated blood pressure troponin negative Chest x-ray and CTA of the chest-no acute finding ECHO and color specialist consult sublingual nitro PRN for chest pain -- Acute hypokalemia Current Visit: Yes Status: Acute Plan to address problem: Replete potassium per protocol Monitor electrolytes -- Hypomagnesemia Current Visit: Yes Status: Acute Plan to address problem: replace with magnesium sulfate IV Monitor electrolyte level --History of seizure disorder Current Visit: No Status: Chronic Plan to address problem: Seizure precautions 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 Hypokalemia and hypomagnesemia was corrected. We will continue sliding scale insulin and Lantus for diabetes, her hemoglobin A1c is 7.0. Chest pain resolved. Troponin was negative. Patient is on IV ceftriaxone for UTI. Will follow culture result. 02/18/2020 -Blood pressure is uncontrolled and I increase lisinopril from 5 to 20 mg, continue Toprol 50 mg p.o. twice daily, I added hydralazine 100 mg p.o. 3 times daily. We will continue monitor blood pressure and adjust as needed. Patient is on IV IV ceftriaxone for UTI. Will follow the culture result. Blood sugar is uncontrolled and I added Lantus 20 units now and 15 units of Lantus nightly, and 5 units of AC humalog insulin. 02/19/2020; Blood pressures remain uncontrolled Unable to give oral medications due to patient's noncooperation As per nurse patient is not opening her mouth not taking oral medications or diet Will place Dobbhoff, both for medications and for feeding I spoke with patient's daughter Ms. Huber at [phone] and discussed in detail patient's condition and treatment plan 02/20/2020; patient is receiving tube feeding, still noncommunicative, will check for speech therapy evaluation And if abnormal patient may need PEG placement 02/21/2020; patient was evaluated by speech therapist, failed swallow evaluation, high risk for aspiration Recommended PEG placement, GI consulted, discussed with patient's daughter Ms. Roque, agreed for the procedure Patient will be n.p.o. from midnight 02/22/2020; s/p PEG today, uncomplicated, tube feeds after 6 hours Possible discharge in 1 to 2 days to rehab/SNF History Interval history: I have seen and examined the patient at the bedside Patient underwent PEG tube placement, tolerated the procedure well GI recommend to start tube feeding after 6 hours after the procedure may be around 6/7:00 p.m. Patient confused not in acute distress Vital signs noted Hospitalist Physical - Constitutional Vitals: Temp Pulse Resp BP Pulse Ox 97.2 F L 76 16 93/42 98 02/21/20 23:59 02/22/20 02:32 02/21/20 23:59 02/21/20 23:59 02/21/20 23:59 General appearance: Present: no acute distress, well-nourished, other (Noncommunicative) - EENT Eyes: Present: PERRL, EOM intact - Neck Neck: Present: supple, normal ROM - Respiratory Respiratory effort: normal Respiratory: bilateral: diminished, negative: rales, rhonchi, wheezing - Cardiovascular Rhythm: regular Heart Sounds: Present: S1 & S2 - Extremities Extremities: no ischemia, No edema - Abdominal General gastrointestinal: soft, non-tender, non-distended, normal bowel sounds - Integumentary Integumentary: Present: clear, warm - Psychiatric Psychiatric: appropriate mood/affect, cooperative - Neurologic Neurologic: CNII-XII intact, moves all extremities HEART Score - HEART Score EKG: Non-specific Age: > 65 Risk factors: > 3 risk factors or hx of atherosclerotic disease Troponin: Troponin T < 0.010 ng/mL (0.00-0.029) 02/16/20 14:54 Troponin: < normal limit - Critical Actions Critical Actions: 4-6 pts:12-16.6% risk of adverse cardiac event. Should be adm itted Results - Labs CBC & Chem 7: 02/22/20 05:02 02/21/20 23:37 Labs: Laboratory Last Values WBC 7.8 K/mm3 (4.5-11.0) 02/22/20 05:02 RBC 3.87 M/mm3 (3.65-5.03) 02/22/20 05:02 Hgb 10.6 gm/dl (10.1-14.3) 02/22/20 05:02 Hct 33.0 % (30.3-42.9) 02/22/20 05:02 MCV 85 fl (79-97) 02/22/20 05:02 MCH 28 pg (28-32) 02/22/20 05:02 MCHC 32 % (30-34) 02/22/20 05:02 RDW 14.6 % (13.2-15.2) 02/22/20 05:02 Plt Count 219 K/mm3 (140-440) 02/22/20 05:02 Lymph % (Auto) 10.4 % (13.4-35.0) L 02/17/20 04:14 [place] % (Auto) 4.8 % (0.0-7.3) 02/17/20 04:14 Eos % (Auto) 0.1 % (0.0-4.3) 02/17/20 04:14 Baso % (Auto) 1.1 % (0.0-1.8) 02/17/20 04:14 Lymph # (Auto) 1.2 K/mm3 (1.2-5.4) 02/17/20 04:14 [place]mullen # (Auto) 0.6 K/mm3 (0.0-0.8) 02/17/20 04:14 Eos # (Auto) 0.0 K/mm3 (0.0-0.4) 02/17/20 04:14 Baso # (Auto) 0.1 K/mm3 (0.0-0.1) 02/17/20 04:14 Seg Neutrophils % 83.6 % (40.0-70.0) H 02/17/20 04:14 Seg Neutrophils # 9.9 K/mm3 (1.8-7.7) H 02/17/20 04:14 PT 13.2 Sec. (12.2-14.9) 02/22/20 05:02 INR 1.02 (0.87-1.13) 02/22/20 05:02 D-Dimer 3297.71 ng/mlDDU (0-234) H 02/15/20 20:10 VBG pH 7.297 (7.320-7.420) L 02/15/20 21:37 Sodium 152 mmol/L (137-145) H D 02/21/20 23:37 Potassium 3.5 mmol/L (3.6-5.0) L D 02/21/20 23:37 Chloride 116.3 mmol/L (98-107) H 02/21/20 23:37 Carbon Dioxide 23 mmol/L (22-30) 02/21/20 23:37 Anion Gap 16 mmol/L 02/21/20 23:37 BUN 44 mg/dL (7-17) H 02/21/20 23:37 Creatinine 1.2 mg/dL (0.6-1.2) 02/21/20 23:37 Estimated GFR 54 ml/min 02/21/20 23:37 BUN/Creatinine Ratio 37 % 02/21/20 23:37 Glucose 184 mg/dL (65-100) H 02/21/20 23:37 POC Glucose 187 mg/dL (70-105) H 02/22/20 07:24 Hemoglobin A1c 7.0 % (4-6) H 02/16/20 03:00 Lactic Acid 1.60 mmol/L (0.7-2.0) 02/15/20 22:55 Calcium 9.5 mg/dL (8.4-10.2) 02/21/20 23:37 Magnesium 1.50 mg/dL (1.7-2.3) L 02/19/20 15:45 Total Bilirubin < 0.20 mg/dL (0.1-1.2) 02/21/20 23:37 Direct Bilirubin < 0.2 mg/dL (0-0.2) 02/16/20 14:54 Indirect Bilirubin 0.0 mg/dL 02/16/20 14:54 AST 20 units/L (5-40) 02/21/20 23:37 ALT 19 units/L (7-56) 02/21/20 23:37 Alkaline Phosphatase 110 units/L (35-129) 02/21/20 23:37 Total Creatine Kinase 153 units/L (30-135) H 02/15/20 20:10 Troponin T < 0.010 ng/mL (0.00-0.029) 02/16/20 14:54 Total Protein 5.9 g/dL (6.3-8.2) L D 02/21/20 23:37 Albumin 2.9 g/dL (3.9-5) L 02/21/20 23:37 Albumin/Globulin Ratio 1.0 % 02/21/20 23:37 Urine Color Yellow (Yellow) 02/15/20 Unknown Urine Turbidity Cloudy (Clear) 02/15/20 Unknown Urine pH 7.0 (5.0-7.0) 02/15/20 Unknown Ur Specific [place] 1.025 (1.003-1.030) 02/15/20 Unknown Urine Protein 100 mg/dl mg/dL (Negative) 02/15/20 Unknown Urine Glucose (UA) 150 mg/dL (Negative) 02/15/20 Unknown Urine Ketones 80 mg/dL (Negative) 02/15/20 Unknown Urine Blood Sm (Negative) 02/15/20 Unknown Urine Nitrite Neg (Negative) 02/15/20 Unknown Urine Bilirubin Neg (Negative) 02/15/20 Unknown Urine Urobilinogen < 2.0 mg/dL (<2.0) 02/15/20 Unknown Ur Leukocyte Esterase Mod (Negative) 02/15/20 Unknown Urine WBC (Auto) 133.0 /HPF (0.0-6.0) H 02/15/20 Unknown Urine RBC (Auto) 4.0 /HPF (0.0-6.0) 02/15/20 Unknown U Epithel Cells (Auto) 5.0 /HPF (0-13.0) 02/15/20 Unknown Urine Bacteria (Auto) 1+ /HPF (Negative) 02/15/20 Unknown Urine Mucus Few /HPF 02/15/20 Unknown Urine Yeast (Budding) Few /HPF 02/15/20 Unknown Salicylates < 0.3 mg/dL (2.8-20.0) L 02/15/20 21:37 Acetaminophen 5.0 ug/mL (10.0-30.0) L 02/15/20 21:37 [place]/IV: Voiding Method Incontinent IV Catheter Type [Left INT / Saline Lock Antecubital] IV Catheter Type [Left Forearm INT / Saline Lock ] IV Catheter Type [Right Peripheral IV Antecubital] IV Catheter Type [Right INT / Saline Lock External Jugular] Active Medications - Current Medications Current Medications: Generic Name Dose Route Start Last Admin Trade Name Freq PRN Reason Stop Dose Admin Al Hydrox/Mg Hydrox/Simethicone 15 ml 02/16/20 00:55 Alum-Mag Hydrox-Simeth 121-562-03pk/5ml PO Q4H PRN Indigestion Lipase/Protease/Amylase 1 each 02/19/20 18:00 Pancreaze 10,500 Unit FEEDTUBE PRN PRN For Clogged Feeding Tube Atorvastatin Calcium 40 mg 02/16/20 22:00 02/21/20 21:54 Lipitor PO 40 mg QHS SOL Administration Dextrose 50 ml 02/19/20 18:00 02/20/20 05:55 D50w (25gm) Syringe IV 50 ml Q30MIN PRN Administration Hypoglycemia Protocol Hydralazine HCl 100 mg 02/18/20 10:00 02/21/20 21:54 Apresoline PO 100 mg TID SOL Administration Ceftriaxone Sodium 1 gm in 50 mls @ 100 mls/hr 02/16/20 12:00 02/21/20 11:06 Rocephin/Ns 1 Gm/50 Ml IV 02/22/20 10:29 100 mls/hr Q24HR SOL Administration Protocol Dextrose/Sodium Chloride 1,000 mls @ 75 mls/hr 02/19/20 18:00 D5ns IV DIRECT SOL Insulin Human Lispro 0 unit 02/16/20 07:30 02/21/20 21:55 Humalog SUB-Q 2 unit ACHS SOL Administration Protocol Insulin Human Lispro 5 unit 02/18/20 11:30 02/21/20 18:40 Humalog SUB-Q Not Given AC [facility] Labetalol HCl 10 mg 02/17/20 12:06 02/19/20 12:05 Labetalol IV 10 mg Q4H PRN Administration SBP >160 Lacosamide 200 mg 02/21/20 22:00 02/21/20 21:54 Vimpat PO 200 mg Q12HR SOL Administration Lactulose 20 gm 02/16/20 00:55 Cephulac PO QHS PRN Constipation Levetiracetam 750 mg 02/16/20 10:00 02/21/20 21:54 Keppra PO 750 mg BID SOL Administration Lisinopril 20 mg 02/18/20 10:00 02/21/20 11:04 Zestril PO 20 mg QDAY SOL Administration Metoprolol Tartrate 75 mg 02/19/20 11:00 02/21/20 18:47 Metoprolol PO 75 mg BID@0800,1700 [facility] Administration Nitroglycerin 0.4 mg 02/15/20 19:59 Nitrostat SL .Q5MIN PRN Chest Pain Ondansetron HCl 4 mg 02/16/20 00:55 02/17/20 08:33 Zofran IV 4 mg Q4H PRN Administration Nausea And Vomiting Pantoprazole Sodium 40 mg 02/18/20 16:30 02/21/20 18:45 Protonix PO 40 mg BIDAC SOL Administration Sertraline HCl 150 mg 02/18/20 10:00 02/21/20 11:04 Zoloft PO 150 mg QDAY SOL Administration Simple Syrup 15 ml 02/19/20 18:00 02/20/20 05:55 Simple Syrup FEEDTUBE 15 ml PRN PRN Administration Hypoglycemia Simple Syrup 30 ml 02/19/20 18:00 Simple Syrup FEEDTUBE PRN PRN Hypoglycemia Sodium Bicarbonate 325 mg 02/19/20 18:00 Sodium Bicarbonate FEEDTUBE PRN PRN For Clogged Feeding Tube Tramadol HCl 50 mg 02/16/20 00:55 02/18/20 21:56 Ultram PO 50 mg Q4H PRN Administration Pain, Moderate (4-6) Trazodone HCl 50 mg 02/16/20 00:55 02/21/20 22:01 Desyrel PO 50 mg QHS PRN Administration Insomnia Nutrition/Malnutrition Assess - Dietary Evaluation Nutrition/Malnutrition Findings: Nutrition Notes Start: 02/20/20 12:25 Freq: Status: Active Protocol: Document 02/20/20 12:25 CW (Rec: 02/20/20 13:28 CW [email or web address]) Co-Sign 02/20/20 12:25 LM Nutrition Notes Need for Assessment generated from: MD Order Initial or Follow up Assessment Current Diagnosis Diabetes,Hypertension Other Pertinent Diagnosis UTI, hypomagnesemia, hypoglycemia, hypokalemia, seizures Current Diet cardiac diet Labs/Tests (02/18) K 2.7 BUN 27 (02/19) BG 277 POC BG 264 Mag 1.50 Pertinent Medications D50w at 50 ml IV Q30min PRN Simple Syrup 15 ml PRN Lipitor Humalog Zofran Height 5 ft 2 in Weight 65 kg [place] Body Weight (kg) 50.00 BMI 26.2 Weight Status Overweight Subjective/Other Information Consult to assess nutritional needs and TF order. Pt has not had bowel movement. Pt refused prevous diet and Dobbhoff placement. Pt was asleep at time of visit. Burn Absent Trauma Absent GI Symptoms Nausea Food Allergy No Skin Integrity/Comment Du Score 15 Current % PO Negligible Minimum of two criteria No physical signs of malnutrition #1 Nutrition Diagnosis Inadequate oral intake Etiology refusal to eat As Evidenced by Signs and Symptoms 0% of oral intakes and refusal of Dobbhoff placement Is patient on ventilator? No Is Patient Ambulatory and/or Out of Bed Yes REE-([facility]-ambulatory/OOB) [ 1473.225 [id number]] Calculation Used for Recommendations [facility] Additional Notes Protein needs are up to 65-78g (up to 1-1.2g/kg) Fluid needs are 1ml/kcal Nutrition Intervention Change Diet Order: TF when medical fesible Nutrition Support: Initiate Glucerna 1.2 at 50ml/ hr Flush with 100ml q4h Kcal 1,470 Protein (gm) 73 Fluid (mL) 982 Goal #1 Start TF Anticipated Discharge Needs: Unable to determine at this time Follow-Up By: 02/22/20 Additional Comments F/U for TF placement and start , K lab
[2020-02-22] MEDS: INSULIN LISPRO 100 UNIT/ML VIAL 3 mL SUB-Q SCH ×7 (08:42→21:17)
[2020-02-22] MEDS: hydrALAZINE 100 MG TAB PO SCH ×3 (08:43→21:17)
[2020-02-22] MEDS: PANTOPRAZOLE 40 MG TAB PO SCH ×2 (08:43→16:00)
[2020-02-22] MEDS: METOPROLOL TARTRATE 50 MG TAB PO SCH ×2 (08:43→17:00)
[2020-02-22] MEDS: SERTRALINE 50 MG TAB PO SCH (10:00)
[2020-02-22] MEDS: LACOSAMIDE 100 MG TAB PO SCH ×2 (10:00→21:17)
[2020-02-22] MEDS: levETIRAcetam 500 MG TAB PO SCH ×2 (10:00→21:16)
--- NOTE | 2020-02-22 10:24 | Gastroenterology Consultation ---
History of Present Illness - Reason for Consult Consult date: 02/22/20 oropharyngeal dysphagia Requesting physician: ARRON STOVALL - History of Present Illness The patient is a 69 yo aaf with h/o diabetes, htn, cad presenting with ams. History obtained from chart review as patient unable to provide history at time of exam. has had admissions this year for n/v and chest pain/hypertensive urgency. + AMS during this admission and has NG in place. No reported n/v episodes. Pt had speech evaluation with recommendations for peg tube placement. Past History Past Medical History: CAD, diabetes, hypertension, seizures Past Surgical History: No surgical history Social history: no significant social history Family history: no significant family history Medications and Allergies Allergies Allergy/AdvReac Type Severity Reaction Status Date / Time Sulfa (Sulfonamide Allergy Angioedema Verified 03/25/19 01:04 Antibiotics) Home Medications Medication Instructions Recorded Confirmed Last Taken Type Ergocalciferol (Vitamin D2) 50,000 unit PO QWEEK 11/12/19 02/16/20 Unknown History [Vitamin D2] Aspirin [Adult Aspirin] 81 mg PO DAILY #100 12/18/19 02/16/20 11/10/19 Rx AtorvaSTATin [Lipitor] 40 mg PO QHS #30 12/18/19 02/16/20 Unknown Rx Lacosamide [Vimpat] 200 mg PO BID #60 12/18/19 02/16/20 Unknown Rx Metformin HCl [metFORMIN] 1,000 mg PO BID 30 Days #60 12/18/19 02/16/20 Unknown Rx Metoprolol [Lopressor TAB] 50 mg PO BID 30 Days #60 tablet 12/18/19 02/16/20 Unknown Rx Potassium Chloride [K-Dur] 20 meq PO QDAY #30 12/18/19 02/16/20 11/10/19 Rx Sertraline [Zoloft] 150 mg PO QDAY #30 12/18/19 02/16/20 Unknown Rx levETIRAcetam [Keppra TAB] 750 mg PO BID 30 Days #60 12/18/19 02/16/20 Unknown Rx lisinopriL [Zestril TAB] 5 mg PO QDAY 30 Days #30 12/18/19 02/16/20 Unknown Rx Active Meds: Active Medications Al Hydrox/Mg Hydrox/Simethicone (Alum-Mag Hydrox-Simeth 408-864-71uh/5ml) 15 ml PO Q4H PRN PRN Reason: Indigestion Lipase/Protease/Amylase (Alexandra March 10,500 Unit) 1 each FEEDTUBE PRN PRN PRN Reason: For Clogged Feeding Tube Atorvastatin Calcium (Lipitor) 40 mg PO QHS [facility] Last Admin: 02/21/20 21:54 Dose: 40 mg Documented by: Dextrose (D50w (25gm) Syringe) 50 ml IV Q30MIN PRN; Protocol PRN Reason: Hypoglycemia Last Admin: 02/20/20 05:55 Dose: 50 ml Documented by: Hydralazine HCl (Apresoline) 100 mg PO TID [facility] Last Admin: 02/22/20 08:43 Dose: Not Given Documented by: Ceftriaxone Sodium (Rocephin/Ns 1 Gm/50 Ml) 1 gm in 50 mls @ 100 mls/hr IV Q24HR [facility]; Protocol Stop: 02/22/20 10:29 Last Admin: 02/21/20 11:06 Dose: 100 mls/hr Documented by: Dextrose/Sodium Chloride (D5ns) 1,000 mls @ 75 mls/hr IV DIRECT SOL Insulin Human Lispro (Humalog) 0 unit SUB-Q [facility]; Protocol Last Admin: 02/22/20 08:42 Dose: Not Given Documented by: Insulin Human Lispro (Humalog) 5 unit SUB-Q AC [facility] Last Admin: 02/22/20 08:42 Dose: Not Given Documented by: Labetalol HCl (Labetalol) 10 mg IV Q4H PRN PRN Reason: SBP >160 Last Admin: 02/19/20 12:05 Dose: 10 mg Documented by: Lacosamide (Vimpat) 200 mg PO Q12HR [facility] Last Admin: 02/21/20 21:54 Dose: 200 mg Documented by: Lactulose (Cephulac) 20 gm PO QHS PRN PRN Reason: Constipation Levetiracetam (Keppra) 750 mg PO BID [facility] Last Admin: 02/21/20 21:54 Dose: 750 mg Documented by: Lisinopril (Zestril) 20 mg PO QDAY [facility] Last Admin: 02/21/20 11:04 Dose: 20 mg Documented by: Metoprolol Tartrate (Metoprolol) 75 mg PO BID@0800,1700 [facility] Last Admin: 02/22/20 08:43 Dose: Not Given Documented by: Nitroglycerin (Nitrostat) 0.4 mg SL .Q5MIN PRN PRN Reason: Chest Pain Ondansetron HCl (Zofran) 4 mg IV Q4H PRN PRN Reason: Nausea And Vomiting Last Admin: 02/17/20 08:33 Dose: 4 mg Documented by: Pantoprazole Sodium (Protonix) 40 mg PO BIDAC [facility] Last Admin: 02/22/20 08:43 Dose: Not Given Documented by: Sertraline HCl (Zoloft) 150 mg PO QDAY [facility] Last Admin: 02/21/20 11:04 Dose: 150 mg Documented by: Simple Syrup (Simple Syrup) 15 ml FEEDTUBE PRN PRN PRN Reason: Hypoglycemia Last Admin: 02/20/20 05:55 Dose: 15 ml Documented by: Simple Syrup (Simple Syrup) 30 ml FEEDTUBE PRN PRN PRN Reason: Hypoglycemia Sodium Bicarbonate (Sodium Bicarbonate) 325 mg FEEDTUBE PRN PRN PRN Reason: For Clogged Feeding Tube Tramadol HCl (Ultram) 50 mg PO Q4H PRN PRN Reason: Pain, Moderate (4-6) Last Admin: 02/18/20 21:56 Dose: 50 mg Documented by: Trazodone HCl (Desyrel) 50 mg PO QHS PRN PRN Reason: Insomnia Last Admin: 02/21/20 22:01 Dose: 50 mg Documented by: Reviewed/updated patient's home and current medications Review of Systems - Review of Systems ROS unobtainable: due to mental status Exam - Constitutional Vital Signs: Temp Pulse Resp BP Pulse Ox 98.0 F 84 18 105/62 98 02/22/20 08:24 02/22/20 08:43 02/22/20 08:24 02/22/20 08:24 02/22/20 08:24 General appearance: no acute distress, other (Non-verbal) - EENT ENT: other (+ NG tube) - Neck Neck: supple - Respiratory Respiratory effort: normal Respiratory: bilateral: CTA - Cardiovascular Rhythm: regular Heart Sounds: Present: S1 & S2 - Gastrointestinal General gastrointestinal: Present: soft, non-tender, non-distended - Neurologic Neurological: disoriented - Labs CBC & Chem 7: 02/22/20 05:02 02/21/20 23:37 Lab Results: Laboratory Results - last 24 hr 02/21/20 02/21/20 02/21/20 11:23 15:45 21:05 WBC RBC Hgb Hct MCV MCH MCHC RDW Plt Count PT INR Sodium Potassium Chloride Carbon Dioxide Anion Gap BUN Creatinine Estimated GFR BUN/Creatinine Ratio Glucose POC Glucose 290 H 235 H 214 H Calcium Total Bilirubin AST ALT Alkaline Phosphatase Total Protein Albumin Albumin/Globulin Ratio 02/21/20 02/22/20 02/22/20 23:37 05:02 05:02 WBC 7.8 RBC 3.87 Hgb 10.6 Hct 33.0 MCV 85 MCH 28 MCHC 32 RDW 14.6 Plt Count 219 PT 13.2 INR 1.02 Sodium 152 H D Potassium 3.5 L D Chloride 116.3 H Carbon Dioxide 23 Anion Gap 16 BUN 44 H Creatinine 1.2 Estimated GFR 54 BUN/Creatinine Ratio 37 Glucose 184 H POC Glucose Calcium 9.5 Total Bilirubin < 0.20 AST 20 ALT 19 Alkaline Phosphatase 110 Total Protein 5.9 L D Albumin 2.9 L Albumin/Globulin Ratio 1.0 02/22/20 07:24 WBC RBC Hgb Hct MCV MCH MCHC RDW Plt Count PT INR Sodium Potassium Chloride Carbon Dioxide Anion Gap BUN Creatinine Estimated GFR BUN/Creatinine Ratio Glucose POC Glucose 187 H Calcium Total Bilirubin AST ALT Alkaline Phosphatase Total Protein Albumin Albumin/Globulin Ratio Assessment and Plan 1. AMS with oropharyngeal dysphagia - had evaluation by speech therapy with recommendations for peg tube placement. pt unable to provide history. will plan for egd/peg today if able to obtain consent/family agreeable.
[2020-02-22] MEDS ORDERED: ceFAZolin/Water 2 GM/20 ML 2 GM/20 ML SYRINGE IV ONE (11:07)
[2020-02-22] MEDS ORDERED: SODIUM CHLORIDE 0.9% 1000 ML 1,000 ML ONE (11:08)
[2020-02-22] MEDS ORDERED: propofoL 200 MG/20 ML VIAL IV ONE (11:11)
[2020-02-22] MEDS ORDERED: ONDANSETRON 4 MG/2 ML INJ ONE (11:35)
--- NOTE | 2020-02-22 11:36 | Operative Report ---
Operative Report Operative Report: Esophagogastroduodenoscopy Procedure Note with PEG tube placement Date of procedure: 02/22/2020 Endoscopist: Darius Kim Pre-op diagnosis/indication: Darius Kim Post-op diagnosis: Oropharyngeal dysphagia MEDICATIONS: MAC, ancef 2 grams COMPLICATIONS: No immediate complications ESTIMATED BLOOD LOSS: Minimal DESCRIPTION OF PROCEDURE: After consent was obtained, the patient was placed in the left lateral decubitis position. The olympus endoscope was inserted into the patient's mouth under direct vision and advanced to the 2nd portion of the duodenum without difficulty. The patient tolerated the procedure well. The views of the mucosa were good. The patient's vital signs were monitored continuously throughout the procedure. The stomach was transilluminated and an optimal position for the PEG tube was identified using the single poke method. The skin was infiltrated with local li docaine, followed by a small incision. The needle and sheath were inserted through the abdomen into the stomach under direct visualization. The needle was removed and a guidewire was inserted through the sheath. The guidewire was grasped from above with a snare. It was removed completely and the 20 Fr PEG tube was secured to the guidewire. The guidewire and PEG tube were then pulled through the mouth and esophagus and snug to the abdominal wall. The external bumper at 3 cm. The endoscope was re-inserted which showed good positioning of the internal bumper. FINDINGS: There was a hiatal hernia, otherwise the esophagus appeared normal. Mild erythematous mucosa in the antrum. Otherwise, the stomach appeared normal. Successful PEG tube placement as above. The duodenum appeared normal. IMPRESSION: 1. Hiatal hernia and mild gastritis. 2. Successful PEG tube placement as above. RECOMMENDATIONS: -okay to use peg tube for medications after 2 hours and for tube feedings after 6 hours if no new symptoms -consult nutrition regarding tube feed recommendations -post peg care daily -will follow-up tomorrow
[2020-02-22] MEDS ORDERED: ceFAZolin/Water 2 GM/20 ML 2 GM/20 ML SYRINGE IV NR (12:00)
[2020-02-22] MEDS ORDERED: SODIUM CHLORIDE 0.9% 1000 ML 1,000 ML IV SCH (12:00)
--- NOTE | 2020-02-22 12:54 | Anesthesia Day of Surgery ---
Anesthesia Day of Surgery - Day of Surgery Patient Examined: Yes Patient H&P Reviewed: Yes Patient is NPO: Yes
--- NOTE | 2020-02-22 12:54 | Anesthesia Consultation ---
Anesthesia Consult and Med Hx Date of service: 02/22/20 - Airway Anesthetic Teeth Evaluation: Poor ROM Head & Neck: Adequate Mental/Hyoid Distance: Adequate Mallampati Class: Class II Intubation Access Assessment: Probably Good - Pre-Operative Health Status ASA Pre-Surgery Classification: ASA3 Proposed Anesthetic Plan: MAC - Pulmonary Hx Asthma: No COPD: No Hx Pneumonia: No - Cardiovascular System Hx Hypertension: Yes Hx Coronary Artery Disease: Yes Hx Heart Attack/AMI: Yes Hx Pacemaker: No Hx Internal Defibrillator: No - Central Nervous System Hx Seizures: Yes Hx Psychiatric Problems: Yes (altered mental status) - Gastrointestinal Hx Gastroesophageal Reflux Disease: Yes (dysphagea) - Endocrine Hx End Stage Renal Disease: No - Hematic Hx Anemia: No (metabolic dysbalance)
--- NOTE | 2020-02-22 12:55 | Post Anesthesia Evaluation ---
- Post Anesthesia Evaluation Patient Participated: No Airway Patent: Yes Stable Respiratory Function: Yes Nausea/Vomiting: Yes (some retching, controlled with Zofran 4mg IV) Temp > 96.8F: Yes Pain Manageable: Yes Adequeate Hydration: Yes Anesthesia Complications: No
[2020-02-22] MEDS: cefTRIAXone/NS 1 GM/50 ML 1 GM/50 ML BAG IV SCH (18:59)
[2020-02-22] MEDS: LISINOPRIL 20 MG TAB PO SCH (19:00)
[2020-02-23 05:27] LABS: Hematocrit 31.1 % (30.3-42.9)
[2020-02-23 06:37] LABS: Calcium 9.3 mg/dL (8.4-10.2)
[2020-02-23] MEDS: INSULIN LISPRO 100 UNIT/ML VIAL 3 mL SUB-Q SCH ×6 (08:48→16:51)
--- NOTE | 2020-02-23 10:06 | Gastroenterology Progress Note ---
Assessment and Plan 1. Oropharyngeal dysphagia - s/p egd/peg, tolerating tube feeds, cont per nutrition recommendations. post peg care daily. will sign off, please call as needed. Subjective Date of service: 02/23/20 Principal diagnosis: oropharyngeal dysphagia Interval history: s/p egd/peg, tolerating tube feeds. Objective - Constitutional Vitals: Temp Pulse Resp BP Pulse Ox 98.0 F 90 16 128/56 95 02/23/20 07:59 02/23/20 07:59 02/23/20 07:59 02/23/20 07:59 02/23/20 07:59 General appearance: no acute distress - Respiratory Respiratory effort: normal Respiratory: bilateral: CTA - Gastrointestinal General gastrointestinal: Present: soft, non-tender, other (peg tube site c/d/i. external bumper loosened at bedside) - Labs CBC & Chem 7: 02/23/20 04:50 02/23/20 04:50 Labs: Laboratory Results - last 24 hr 02/22/20 02/22/20 02/23/20 16:20 20:42 04:50 Hgb 10.0 L Hct 31.1 Sodium Potassium Chloride Carbon Dioxide Anion Gap BUN Creatinine Estimated GFR BUN/Creatinine Ratio Glucose POC Glucose 291 H 279 H Calcium 02/23/20 02/23/20 04:50 07:57 Hgb Hct Sodium 151 H Potassium 3.7 Chloride 112.1 H Carbon Dioxide 27 Anion Gap 16 BUN 57 H Creatinine 1.4 H Estimated GFR 45 BUN/Creatinine Ratio 41 Glucose 412 H POC Glucose 405 H Calcium 9.3
[2020-02-23] MEDS: INSULIN NPH/REGULAR 70/30 INJ SUB-Q SCH ×2 (11:19→16:52)
[2020-02-23] MEDS: levETIRAcetam 500 MG TAB PO SCH (11:38)
[2020-02-23] MEDS: LACOSAMIDE 100 MG TAB PO SCH (11:40)
[2020-02-23] MEDS: hydrALAZINE 100 MG TAB PO SCH ×2 (11:40→16:49)
[2020-02-23] MEDS: LISINOPRIL 20 MG TAB PO SCH (11:41)
[2020-02-23] MEDS: SERTRALINE 50 MG TAB PO SCH (11:41)
[2020-02-23] MEDS: PANTOPRAZOLE 40 MG TAB PO SCH (11:45)
[2020-02-23] MEDS: METOPROLOL TARTRATE 50 MG TAB PO SCH ×2 (11:52→16:49)
[2020-02-23] MEDS: LANSOPRAZOLE 30 MG SOLUTAB FEEDTUBE SCH ×2 (11:54→16:52)
[2020-02-23] MEDS ORDERED: LANSOPRAZOLE 30 MG SOLUTAB FEEDTUBE SCH (12:00)
--- NOTE | 2020-02-23 15:06 | Discharge Summary ---
Providers - Providers Date of Admission: 02/16/20 18:25 Date of discharge: 02/23/20 Attending physician: ARRON STOVALL 02/17/20 10:40 Physical Therapy Evaluation and Treat [CONS] Routine Comment: Reason For Exam: weakness 02/17/20 10:41 Occupational Therapy Evaluate and Treat [CONS] Routine Comment: Reason For Exam: weakness 02/19/20 17:06 Consult to Dietitian/Nutrition [CONS] Routine Physician Instructions: Assess nutrtn needs, initiate, modify, manage TF Reason For Exam: Reason for Consult: Write/Manage Tube Feeding Reason for Consult: Write/Manage Tube Feeding 02/19/20 17:08 Consult to Dietitian/Nutrition [CONS] Routine Physician Instructions: Assess nutrtn needs, initiate, modify, manage TF Reason For Exam: Reason for Consult: Write/Manage Tube Feeding Reason for Consult: Write/Manage Tube Feeding 02/21/20 10:58 Speech Therapy Evaluation and Treat [CONS] Urgent Reason For Exam: Swallow evaluation 02/21/20 13:50 Consult to Physician [CONS] Routine Comment: Consulting Provider: NATALIA KURTZ Physician Instructions: Reason For Exam: PEG placement/failed swallow eval/severe dementia Primary care physician: CASING CREW PUSHER Hospitalization Reason for admission: Hypertensive emergency/acute toxic metabolic encephalopathy Condition: Fair Pertinent studies: Multiple chest x-rays CTA chest CT abdomen and pelvis CT head without contrast Multiple chest x-rays Multiple abdominal x-rays Procedures: PEG tube placement; 02/22/2024 Hospital course: 69 year old female patient with significant past medical history of coronary artery disease hypertension type 2 diabetes mellitus malnutrition seizure disorder Was admitted through emergency room with altered level of consciousness and hypertensive emergency and multiple electrolyte abnormalities. Patient had elevated D-dimer CT angiogram of the chest negative for PE, also has history of coronary artery disease status post PCI and on aggressive cardiac management. Patient was managed appropriately with antihypertensive medications blood pressures blood sugars closely monitored Patient was severely encephalopathic unable to take oral medications and diet, patient received 2 days of Dobbhoff feeds S evaluated by speech and swallow Failed swallow evaluation and speech therapist recommended PEG placement, GI consulted patient received PEG on 02/22/2020 Tolerating tube feeds. Today patient is comfortable no new complaints vital signs stable, confused intermittently Case management has set up SNF placement per family's request Patient is hemodynamically and clinically stable at discharge Discharge diagnosis; --Covid test was negative: 02/23/2020 --Dysphagia/failed swallow evaluation; Current Visit: No Status: Acute s/p PEG placement 02/22/2020 Tolerating PEG feeds --Acute toxic metabolic encephalopathy; POA Current Visit: No Status: Acute . Multifactorial, hypertensive urgency, electrolyte abnormalities, hypoglycemia Improved --Acute kidney injury; Current Visit: No Status: Acute dehydration, vasomotor nephropathy Free water, monitor renal function -- Hypertensive emergency ; Current Visit: No Status: Acute Present on admission, well controlled --Atypical chest pain; noncardiac Current Visit: Yes Status: Acute Secondary GERD, Protonix -- Acute hypokalemia Current Visit: Yes Status: Acute Replete potassium per protocol Monitor electrolytes -- Hypomagnesemia Current Visit: Yes Status: Acute replace with magnesium sulfate IV Monitor electrolyte level --History of seizure disorder Current Visit: No Status: Chronic Seizure precautions Continue antiepileptic medications --Type II diabetes Current Visit: No Status: Chronic Accu-Chek sliding scale coverage ADA diet Patient had an episode of hypoglycemia, Hold long-acting insulin, closely monitor blood sugars --Metabolic acidosis Current Visit: Yes Status: Acute Received IV fluids and bicarb, Improved --full CODE STATUS --DVT prophylaxis Heparin renal dose DC planning per case management Patient is stable to be discharged to SNF today Disposition: DC/TX-03 SNF [facility] CERT Time spent for discharge: 35 minutes Core Measure Documentation - Palliative Care Palliative Care/ Comfort Measures: Not Applicable - Core Measures Any of the following diagnoses?: none Exam - Constitutional Vitals: Temp Pulse Resp BP Pulse Ox 98.6 F 96 H 16 99/50 96 02/23/20 11:14 02/23/20 11:14 02/23/20 11:14 02/23/20 11:14 02/23/20 11:14 General appearance: Present: no acute distress, well-nourished, other (Confused at times) - EENT Eyes: Present: PERRL, EOM intact - Neck Neck: Present: supple, normal ROM Plan Activity: advance as tolerated, fall precautions Diet: other (Tube feeding per protocol) Additional Instructions: Fall precautions. Aspiration precautions. If you have worsening symptoms contact MD or go to emergency room. Contact GI Dr. Natalia Kurtz you have any problems with the PEG tube Follow up with: PRIMARY CARE, [Primary Care Provider] - 3-5 Days
[2020-02-23 16:34] VITALS: BP 103/46
== END 2020-02-23 19:04 | DRG 70 ==
LOC: ED 19:14 → 4A 02-16 00:36 → OBSVTOIN 02-16 18:25
PROVIDERS: ADMIT Internal Medicine Geriatric Medicine; ATTEND Internal Medicine
PROC: 0DH63UZ Insertion of Feeding Device into Stomach, Percutaneous Approach (ICD-10-PCS; principal; 2020-02-22)
DX: G93.41 Metabolic encephalopathy (principal); N17.0 Acute kidney failure with tubular necrosis; I16.1 Hypertensive emergency; N39.0 Urinary tract infection, site not specified; E87.2 Acidosis; R13.12 Dysphagia, oropharyngeal phase; E87.6 Hypokalemia; K44.9 Diaphragmatic hernia without obstruction or gangrene; K29.70 Gastritis, unspecified, without bleeding; E86.0 Dehydration; E83.42 Hypomagnesemia; I10 Essential (primary) hypertension; E11.9 Type 2 diabetes mellitus without complications; E11.65 Type 2 diabetes mellitus with hyperglycemia; Z88.2 Allergy status to sulfonamides; I25.2 Old myocardial infarction; I25.10 Atherosclerotic heart disease of native coronary artery without angina pectoris; G40.909 Epilepsy, unspecified, not intractable, without status epilepticus; R07.89 Other chest pain; Z20.828 Contact with and (suspected) exposure to other viral communicable diseases
CPT/HCPCS: 36415; 70450; 71045; 71275; 74018; 74177; 80048; 80053; 80076; 80320; 81001; 82140; 82550; 82805; 82962; 83036; 83735; 84132; 84484; 85014; 85018; 85025; 85027; 85379; 85610; 87040; 87086; 93005; 96365; 96375; G0378; A9270-GY; C9113; G0480; J0690; J0696; J1650; J1815; J2270; J2405; J2704; J3475; J3480; J7030; J7050; Q9967; U0003

== ENCOUNTER 2020-03-16 15:19 | Emergency (ER) | payer MEDICARE ==
--- NOTE | 2020-03-16 16:12 | Emergency Department Report ---
HPI - General Chief Complaint: GI Bleed Time Seen by Provider: 03/16/20 15:28 - HPI HPI: This is a 69-year-old -Irish female who presents to the emergency department, via EMS, from her [facility] facility with the complaint of nausea and vomiting and possible coffee-ground emesis. The patient had vomiting while receiving her tube feedings. EMS arrived and stated that it looked like she had vomited up the tube feedings but no obvious signs of blood. The patient is a poor historian. She has a past medical history listed of hy pertension, insulin-dependent diabetes, coronary artery disease with previous AK, cardiomyopathy, seizure disorder. The patient was admitted to this hospital on 03/03 through 03/08 for altered mental status, hyponatremia, hypertension. The patient's PCP is listed as Dr. Cornelio Oviedo. Unknown if the patient received any medication for symptoms prior to arrival. Patient appears to be on an aspirin but otherwise is not on any blood thinners. ED Past Medical Hx - Past Medical History Hx Hypertension: Yes Hx Heart Attack/AMI: Yes Hx Congestive Heart Failure: No Hx Diabetes: Yes Hx Deep Vein Thrombosis: (unknown) Hx Seizures: Yes Hx Asthma: No Hx COPD: No - Surgical History Hx Pacemaker: No Hx Internal Defibrillator: No Additional Surgical History: c section x1 - Social History Smoking Status: Never Smoker - Medications Home Medications: Home Medications Medication Instructions Recorded Confirmed Last Taken Type Ergocalciferol (Vitamin D2) 50,000 unit PO QWEEK 11/12/19 03/04/20 Unknown History [Vitamin D2] Aspirin [Adult Aspirin] 81 mg PO DAILY #100 12/18/19 03/04/20 11/10/19 Rx AtorvaSTATin [Lipitor] 40 mg PO QHS #30 12/18/19 03/04/20 Unknown Rx Lacosamide [Vimpat] 200 mg PO BID #60 12/18/19 03/04/20 Unknown Rx Metformin HCl [metFORMIN] 1,000 mg PO BID 30 Days #60 12/18/19 03/04/20 Unknown Rx Metoprolol [Lopressor TAB] 50 mg PO BID 30 Days #60 tablet 12/18/19 03/04/20 Unknown Rx Sertraline [Zoloft] 150 mg PO QDAY #30 12/18/19 03/04/20 Unknown Rx levETIRAcetam [Keppra TAB] 750 mg PO BID 30 Days #60 12/18/19 03/04/20 Unknown Rx Antacid [Alum-Mag Hydrox-Simeth 15 ml PO Q4H PRN oral.liqd 02/23/20 03/04/20 Unknown Rx [id number]] Insulin Lispro [Humalog] 0 unit SUB-Q ACHS vial 02/23/20 03/04/20 Unknown Rx Lipase/Protease/Amylase [Pancreaze 1 each FEEDTUBE PRN PRN capsule 02/23/20 03/04/[address] 10,500 Unit] Simple Syrup 15 ml FEEDTUBE PRN PRN oral.liqd 02/23/20 03/04/20 Unknown Rx Simple Syrup 30 ml FEEDTUBE PRN PRN oral.liqd 02/23/20 03/04/20 Unknown Rx Sodium Bicarbonate 325 mg FEEDTUBE PRN PRN tablet 02/23/20 03/04/20 Unknown Rx hydrALAZINE [Apresoline TAB] 100 mg PO TID tab 02/23/20 03/04/20 Unknown Rx lisinopriL [Zestril TAB] 20 mg PO QDAY tablet 02/23/20 03/04/20 Unknown Rx traMADoL [Ultram 50 MG tab] 50 mg PO Q4H PRN tablet 02/23/20 03/04/20 Unknown Rx ED Review of Systems ROS: Stated complaint: NAUSEA/VOMITING Other details as noted in HPI Comment: Unobtainable due to pts medical conditions Physical Exam - Physical Exam Vital Signs: Vital Signs 03/16/20 15:41 Respiratory 18 Rate Blood Pressure 130/60 [Right] O2 Sat by Pulse 99 Oximetry Physical Exam: GENERAL: The patient is well-developed well-nourished. HENT: Normocephalic. Atraumatic. Patient has moist mucous membranes. EYES: Extraocular motions are intact. NECK: Supple. Trachea is midline. CHEST/LUNGS: Clear to auscultation. There is no respiratory distress noted. HEART/CARDIOVASCULAR: Regular. There is mild tachycardia. There is no murmur. ABDOMEN: Abdomen is soft, nontender. Patient has normal bowel sounds. There is no abdominal distention. SKIN: Skin is warm and dry. NEURO: The patient is awake, alert, and cooperative. Withdraws to painful stimuli. MUSCULOSKELETAL: There is no tenderness or deformity. ED Course Vital Signs 03/16/20 15:41 Respiratory 18 Rate Blood Pressure 130/60 [Right] O2 Sat by Pulse 99 Oximetry - EJ/Peripheral Line Arm R Time Out Performed: Yes Indications: nurses unable to establis Skin Cleansed in Sterile Fashion: Yes Size: 22 Dressing Placed: Tegaderm Patient Tolerated Procedure: well ED Medical Decision Making - Lab Data Result diagrams: 03/16/20 16:43 03/16/20 16:43 - Radiology Data Radiology results: image reviewed interpreted by me: Chest x-ray does not show any acute process. There are no pleural effusions, obvious pneumonia and there is no pneumothorax. No significant cardiomegaly. Abdominal x-ray shows nonspecific nonobstructive bowel gas - Medical Decision Making This patient was brought into the emergency department from her nursing facility after she had an episode of vomiting that gave the staff at the [facility] concerned that it could be coffee-ground emesis. EMS reports that they saw the same emesis and felt it was more consistent with the patient's tube feeds, which were going on concurrently. There has been no further vomiting since the patient has been in the emergency department, for almost 4.5 hours now. Patient does have a history of some anemia, but her hemoglobin of 9.3 is higher than when she was discharged about a week ago. Patient has some mild hyperkalemia with potassium of 5.6 for which she will be given some Kayexalate. The patient also has some signs of some mild dehydration. There is no renal insufficiency but there is an elevated BUN to creatinine ratio showing some prerenal azotemia. A peripheral IV has been placed and the patient will receive a bolus of IV fluid. Chest and abdominal x-ray did not show any acute processes. I spoke to the patient's daughter and updated them on the physical exam and laboratory results and the plan for discharge back to the [facility] facility. Patient should follow-up with her PCP, Dr. Oviedo, through the [facility] facility, and should go to the closest emergency department with any further vomiting, signs of GI bleed, or with any acute distress. Critical care attestation.: If time is entered above; I have spent that time in minutes in the direct care of this critically ill patient, excluding procedure time. ED Disposition Clinical Impression: Nausea & vomiting, Hyperkalemia Disposition: - TO HOME OR SELFCARE Is pt being admited?: No Condition: Stable Instructions: Hyperkalemia, Nausea and Vomiting, Adult Additional Instructions: Please follow-up with Dr. Oviedo in the next few days. Return to the emergency department immediately with any return of your nausea and vomiting, signs of GI bleeding, development of chest pain or shortness of breath, with any new or concerning symptoms that were not addressed during this emergency department, or with any acute distress. Referrals: CORNELIO OVIEDO MD [Primary Care Provider] - 2-3 Days Time of Disposition: 19:01
[2020-03-16 17:01] LABS: Basophils % (Auto) 0.3 % (0.0-1.8); Eosinophils % (Auto) 0.2 % (0.0-4.3); Hematocrit 29.1 % (30.3-42.9); Hemoglobin 9.3 gm/dl (10.1-14.3); Lymphocytes # (Auto) 1.9 K/mm3 (1.2-5.4); Mean Corpuscular HGB Conc 32 % (30-34); Mean Corpuscular Volume 86 fl (79-97); Monocytes # (Auto) 0.5 K/mm3 (0.0-0.8); Monocytes % (Auto) 6.8 % (0.0-7.3); Red Blood Count 3.37 M/mm3 (3.65-5.03); Red Cell Distribution Width 15.6 % (13.2-15.2)
[2020-03-16 17:06] LABS: Platelet Count 231 K/mm3 (140-440)
--- NOTE | 2020-03-16 17:06 | XRay Report ---
ABDOMEN 3 VIEW(S) INDICATION / CLINICAL INFORMATION: N/V, GI BLeed. COMPARISON: None available. FINDINGS: BOWEL: No dilated bowel. FREE AIR / EXTRALUMINAL GAS: None seen. CALCIFICATIONS: No significant abnormal calcifications. ADDITIONAL FINDINGS: PEG tube in place LUNGS: Visualized lungs show no significant abnormality. SKELETAL STRUCTURES: No significant abnormality. IMPRESSION: 1. No significant abnormality. Signer Name: Warren King MD Signed: 03/16/2020 5:02 PM Workstation Name: [id number]
[2020-03-16 17:22] LABS: INR 0.91 (0.87-1.13)
[2020-03-16 17:23] LABS: Alanine Aminotransferase 12 units/L (7-56); Albumin 2.7 g/dL (3.9-5); BUN/Creatinine Ratio 36; Blood Urea Nitrogen 29 mg/dL (7-17); Calcium 8.2 mg/dL (8.4-10.2); Hemolysis Index 102
[2020-03-16] MEDS ORDERED: SODIUM POLYSTYRENE 15 GM/60 ML ORAL LIQD PO ONE (17:44)
[2020-03-16] MEDS ORDERED: SODIUM CHLORIDE 0.9% 500 ML 500 ML IV ONE (17:55)
[2020-03-16 23:13] VITALS: BP 127/71
== END 2020-03-16 23:05 | disposition home or self-care (01) ==
LOC: ED 15:19
DX: E87.5 Hyperkalemia (principal); R11.2 Nausea with vomiting, unspecified; I25.2 Old myocardial infarction; I10 Essential (primary) hypertension; E11.9 Type 2 diabetes mellitus without complications; R56.9 Unspecified convulsions; Z98.890 Other specified postprocedural states; Z79.899 Other long term (current) drug therapy; Z88.2 Allergy status to sulfonamides
CPT/HCPCS: 36415; 36569; 74022; 80053; 85025; 85610; 85730; 99284; J7040

== ENCOUNTER 2020-03-30 07:46 | Emergency (ER) | payer MEDICARE ==
--- NOTE | 2020-03-30 08:28 | Emergency Department Report ---
ED CPR HPI - General Chief Complaint: Cardiac Arrest/CPR Stated Complaint: CARDIAC ARREST Time Seen by Provider: 03/30/20 08:22 Source: EMS Mode of arrival: Stretcher Limitations: Other - History of Present Illness Initial Comments: This is a 61-year-old female status post cardiac arrest who has been admitted here last in February with multiple medical comorbidities. She is a resident of [facility]. She was last seen at 5:30 AM by staff at the group home, I am told by medics. Previous discharge summary: 1. Acute kidney injury: Vasomotor nephropathy in the setting of hypotension and volume depletion. Renal US ordered. Monitor renal function. Creatinine level is better. Avoid nephrotoxic agents. Meds dosage based on GFR. 2. FEN: Acute hypernatremia, 2/2 dehydration, improved, monitor. Metabolic alkalosis, monitor. Monitor lytes and volume status. 3. Sepsis with shock, POA: Likely 2/2 UTI. BP is better. Continue Abx. 4. Acute metabolic encephalopathy: Multifactorial, sepsis, electrolyte abnormalities. Supportive care, correct underlying cause. CT head negative. 5. History of seizure disorder: Seizure precautions. Home anti-epileptic. 6. Type II diabetes: Accu-Checks, sliding scale coverage. Closely monitor blood sugar. 7. Anemia, POA: Medics state patient was found in asystole with no signs of life. They initiated resuscitative efforts which consisted of an advanced airway and IO catheter. She received several rounds of epinephrine. There was no return of spontaneous circulation. She arrived in asystole. The patient was examined and had no signs of life despite prolonged resuscitation. She was pronounced DOA. MD Complaint: found unresponsive -: minute(s), hour(s) Treatments Prior to Arrival: other airway device, epinephrine mgs # - Related Data Home Medications Medication Instructions Recorded Confirmed Last Taken Ergocalciferol (Vitamin D2) 50,000 unit PO QWEEK 11/12/19 03/04/20 Unknown [Vitamin D2] Previous Rx's Medication Instructions Recorded Last Taken Type Aspirin [Adult Aspirin] 81 mg PO DAILY #100 12/18/19 11/10/19 Rx AtorvaSTATin [Lipitor] 40 mg PO QHS #30 12/18/19 Unknown Rx Lacosamide [Vimpat] 200 mg PO BID #60 12/18/19 Unknown Rx Metformin HCl [metFORMIN] 1,000 mg PO BID 30 Days #60 12/18/19 Unknown Rx Metoprolol [Lopressor TAB] 50 mg PO BID 30 Days #60 tablet 12/18/19 Unknown Rx Sertraline [Zoloft] 150 mg PO QDAY #30 12/18/19 Unknown Rx levETIRAcetam [Keppra TAB] 750 mg PO BID 30 Days #60 12/18/19 Unknown Rx Antacid [Alum-Mag Hydrox-Simeth 15 ml PO Q4H PRN oral.liqd 02/23/20 Unknown Rx [id number]/5Ml] Insulin Lispro [Humalog] 0 unit SUB-Q ACHS vial 02/23/20 Unknown Rx Lipase/Protease/Amylase [Pancreaze 1 each FEEDTUBE PRN PRN capsule 02/23/[address] 10,500 Unit] Simple Syrup 15 ml FEEDTUBE PRN PRN oral.liqd 02/23/20 Unknown Rx Simple Syrup 30 ml FEEDTUBE PRN PRN oral.liqd 02/23/20 Unknown Rx Sodium Bicarbonate 325 mg FEEDTUBE PRN PRN tablet 02/23/20 Unknown Rx hydrALAZINE [Apresoline TAB] 100 mg PO TID tab 02/23/20 Unknown Rx lisinopriL [Zestril TAB] 20 mg PO QDAY tablet 02/23/20 Unknown Rx traMADoL [Ultram 50 MG tab] 50 mg PO Q4H PRN tablet 02/23/20 Unknown Rx Allergies Allergy/AdvReac Type Severity Reaction Status Date / Time Sulfa (Sulfonamide Allergy Angioedema Verified 03/30/20 07:48 Antibiotics) ED Review of Systems ROS: Stated complaint: CARDIAC ARREST Other details as noted in HPI Comment: Unobtainable due to pts medical conditions ED Past Medical Hx - Past Medical History Hx Hypertension: Yes Hx Heart Attack/AMI: Yes Hx Congestive Heart Failure: No Hx Diabetes: Yes Hx Deep Vein Thrombosis: (unknown) Hx Seizures: Yes Hx Asthma: No Hx COPD: No - Surgical History Hx Pacemaker: No Hx Internal Defibrillator: No Additional Surgical History: c section x1 - Social History Smoking Status: Never Smoker - Medications Home Medications: Home Medications Medication Instructions Recorded Confirmed Last Taken Type Ergocalciferol (Vitamin D2) 50,000 unit PO QWEEK 11/12/19 03/04/20 Unknown History [Vitamin D2] Aspirin [Adult Aspirin] 81 mg PO DAILY #100 12/18/19 03/04/20 11/10/19 Rx AtorvaSTATin [Lipitor] 40 mg PO QHS #30 12/18/19 03/04/20 Unknown Rx Lacosamide [Vimpat] 200 mg PO BID #60 12/18/19 03/04/20 Unknown Rx Metformin HCl [metFORMIN] 1,000 mg PO BID 30 Days #60 12/18/19 03/04/20 Unknown Rx Metoprolol [Lopressor TAB] 50 mg PO BID 30 Days #60 tablet 12/18/19 03/04/20 Unknown Rx Sertraline [Zoloft] 150 mg PO QDAY #30 12/18/19 03/04/20 Unknown Rx levETIRAcetam [Keppra TAB] 750 mg PO BID 30 Days #60 12/18/19 03/04/20 Unknown Rx Antacid [Alum-Mag Hydrox-Simeth 15 ml PO Q4H PRN oral.liqd 02/23/20 03/04/20 Unknown Rx [id number]/[id number]] Insulin Lispro [Humalog] 0 unit SUB-Q ACHS vial 02/23/20 03/04/20 Unknown Rx Lipase/Protease/Amylase [Pancreaze 1 each FEEDTUBE PRN PRN capsule 02/23/20 03/04/20 Unknown Rx 10,500 Unit] Simple Syrup 15 ml FEEDTUBE PRN PRN oral.liqd 02/23/20 03/04/20 Unknown Rx Simple Syrup 30 ml FEEDTUBE PRN PRN oral.liqd 02/23/20 03/04/20 Unknown Rx Sodium Bicarbonate 325 mg FEEDTUBE PRN PRN tablet 02/23/20 03/04/20 Unknown Rx hydrALAZINE [Apresoline TAB] 100 mg PO TID tab 02/23/20 03/04/20 Unknown Rx lisinopriL [Zestril TAB] 20 mg PO QDAY tablet 02/23/20 03/04/20 Unknown Rx traMADoL [Ultram 50 MG tab] 50 mg PO Q4H PRN tablet 02/23/20 03/04/20 Unknown Rx ED Physical Exam - General Limitations: Other General appearance: other (Appears quite pale/anemic) - Head Head exam: Present: atraumatic - Eye Pupils: Present: other (Fixed dilated) - Neck Neck exam: Present: normal inspection - Respiratory Respiratory exam: Present: normal lung sounds bilaterally (With airway assist) - Cardiovascular Cardiovascular Exam: Present: other (No heart sounds) - GI/Abdominal GI/Abdominal exam: Present: other (G-tube in place) - Extremities Exam Extremities exam: Present: other (I/O catheter) - Neurological Exam Neurological exam: Present: other - Skin Skin exam: Present: warm ED Course - Reevaluation(s) Reevaluation #1: Further resuscitative efforts are futile and inapplicable. 03/30/20 08:29 03/30/20 08:43 Critical care attestation.: If time is entered above; I have spent that time in minutes in the direct care of this critically ill patient, excluding procedure time. ED Disposition Clinical Impression: Cardiac arrest Disposition: DC-20 Is pt being admited?: No Does the pt Need Aspirin: No Condition: Stable Referrals: PRIMARY CARE, [Primary Care Provider] - 3-5 Days Time of Disposition: 08:44
== END 2020-03-30 09:21 ==
LOC: ED 07:46
DX: I46.9 Cardiac arrest, cause unspecified (principal); I10 Essential (primary) hypertension; E11.9 Type 2 diabetes mellitus without complications; R56.9 Unspecified convulsions; Z98.890 Other specified postprocedural states; Z79.4 Long term (current) use of insulin; Z79.899 Other long term (current) drug therapy; Z88.2 Allergy status to sulfonamides